=== PATIENT | female | born 1965 | race Caucasian/White ===

== ENCOUNTER 2021-02-23 08:57 | Outpatient (REF) | payer OTHER, SELFPAY ==
[2021-02-23 11:14] LABS: MANUAL DIFF FLAG NO
[2021-02-23 11:21] LABS: Basophils Percent Auto 0.5 % (0-2); Eosinophils Absolute Auto 0.4 X10*3/uL (0.0-0.4); Eosinophils Percent Auto 6.5 % (0-4); Hematocrit 40.3 % (37.0-47.0); Hemoglobin 13.2 g/dl (12.0-16.0); Imm Gran Abs Auto 0.02 X10*3/uL (0.00-0.03); Imm Gran Pct Auto 0.3 % (0.0-0.4); Lymphocytes Absolute Auto 1.6 X10*3/uL (1.2-4.9); Lymphocytes Percent Auto 27.5 % (20-40); Mean Corpuscular HGB Conc 32.8 g/dl (31.0-35.0); Mean Corpuscular Hemoglobin 31.9 pg (27.0-33.0); Mean Corpuscular Volume 97.3 fL (80.0-98.0); Mean Platelet Volume 9.3 fL (9.4-12.3); Monocytes Absolute Auto 0.4 X10*3/uL (0.1-1.2); Monocytes Percent Auto 7.4 % (2-11); Neutrophils Absolute Auto 3.4 x10*3/uL (2.0-8.3); Neutrophils Percent Auto 57.8 % (45-73); Platelet Count 256 X10*3/uL (160-400); Red Blood Count 4.14 X10*6/uL (4.20-5.50); Red Cell Distribution Width 12.4 % (11.0-16.0); White Blood Count 5.9 X10*3/uL (4.8-10.8)
[2021-02-23 11:44] LABS: Alanine Aminotransferase 20 U/L (0-31); Albumin Level 3.8 g/dL (3.5-5.0); Alkaline Phosphatase 123 U/L (39-117); Anion Gap 9 (12-20); Aspartate Amino Transferase 20 U/L (5-31); Bilirubin Total 0.4 mg/dL (0.0-1.0); Blood Urea Nitrogen 14 mg/dL (9-16); Calcium 8.7 mg/dL (8.4-10.2); Carbon Dioxide 27 mmol/L (22-29); Chloride 109 mmol/L (96-108); Cholesterol 214 mg/dL; Estimated Glomerular Filt Rate > 60; Glucose Fasting 100 mg/dL (60-99); HDL Cholesterol 67 mg/dL; LDL Cholesterol Calculated 135 mg/dl; Potassium 4.2 mmol/L (3.3-5.1); Sodium 141 mmol/L (135-145); Total Protein 6.4 g/dL (6.5-8.0); Triglycerides 63 mg/dL
[2021-02-23 11:54] LABS: TSH reflex Free T4 2.53 uIU/mL (0.32-4.0)
== END 2021-02-23 08:58 | disposition home or self-care (01) ==
LOC: HO.WFDLDS 08:57
PROVIDERS: Visit Provider Family Medicine
DX: Z00.00 Encounter for general adult medical examination without abnormal findings (principal)
CPT/HCPCS: 36415; 80053; 80061; 84443; 85025

== ENCOUNTER 2021-02-28 08:59 | Outpatient (REF) | payer OTHER, MEDICAID, SELFPAY ==
--- NOTE | ~2021-02-28 | XR_ITS ---
EXAMINATION: XR HAND, LEFT CLINICAL INFORMATION: Pain COMPARISON: None TECHNIQUE: PA, lateral, and oblique views of the left hand. FINDINGS: There is no acute fracture or dislocation. Very mild narrowing of the DIP and PIP joint spaces. No significant hypertrophic change or erosions. The joint spaces are otherwise preserved. Overlying soft tissues are intact. XR/XR hand LT min 3V IMPRESSION: No acute bony abnormality of the left hand. Mild early degenerative changes.
== END 2021-02-28 09:00 | disposition home or self-care (01) ==
LOC: HO.HOSX 08:59
PROVIDERS: Visit Provider Orthopaedic Surgery
DX: M72.0 Palmar fascial fibromatosis [Dupuytren] (principal)
CPT/HCPCS: 73130

== ENCOUNTER 2021-05-04 08:24 | Outpatient (REF) | payer OTHER, SELFPAY ==
--- NOTE | ~2021-05-04 | MM_ITS ---
EXAMINATION: MM SCREENING DIGITAL BREAST TOMOSYNTHESIS, BILATERAL CLINICAL INFORMATION: Screening. Asymptomatic. Prior history reduction mammoplasty. Prior the outside mammography from [facility] currently available.) The lifetime risk of breast cancer based on the Tyrer-Cuzick Model is 13%. COMPARISON: None. TECHNIQUE: Digital breast tomosynthesis is performed in both the craniocaudal and mediolateral oblique views along with computer-aided detection (CAD). Synthesized 2D images are generated from the tomosynthesis. Additional right MLO view is provided. FINDINGS: There are scattered areas of fibroglandular density (ACR BI-RADS breast composition Category b). Breast tissue composition borders on predominantly fatty. There are scattered background stromal scarring and benign fibroglandular densities. There is no significant mass or architectural abnormality. No abnormal calcifications. The axilla are unremarkable. MM/MM tomosynthesis screening BI IMPRESSION: No mammographic evidence of malignancy. ASSESSMENT: BI-RADS 2: Benign RECOMMENDATION: 1. Routine annual mammography screening. 2. Radiology department will attempt to retrieve prior outside mammography to allow for comparison in an addendum report. This patient's information was entered into a reminder system with a target due date for their next mammogram.
== END 2021-05-04 08:25 | disposition home or self-care (01) ==
LOC: HO.MAMMO 08:24
PROVIDERS: Visit Provider Family Medicine
DX: Z12.31 Encounter for screening mammogram for malignant neoplasm of breast (principal)
CPT/HCPCS: 77063; 77067

== ENCOUNTER 2021-10-24 08:01 | Outpatient (REF) | payer OTHER, MEDICAID, SELFPAY ==
[2021-10-24 11:25] LABS: MANUAL DIFF FLAG NO
[2021-10-24 11:34] LABS: Basophils Percent Auto 0.5 % (0-2); Eosinophils Absolute Auto 0.4 X10*3/uL (0.0-0.4); Eosinophils Percent Auto 6.8 % (0-4); Hematocrit 43.2 % (37.0-47.0); Hemoglobin 13.8 g/dl (12.0-16.0); Imm Gran Abs Auto 0.01 X10*3/uL (0.00-0.03); Imm Gran Pct Auto 0.2 % (0.0-0.4); Lymphocytes Absolute Auto 1.7 X10*3/uL (1.2-4.9); Lymphocytes Percent Auto 28.8 % (20-40); Mean Corpuscular HGB Conc 31.9 g/dl (31.0-35.0); Mean Corpuscular Volume 97.1 fL (80.0-98.0); Mean Platelet Volume 9.4 fL (9.4-12.3); Monocytes Absolute Auto 0.4 X10*3/uL (0.1-1.2); Monocytes Percent Auto 7.3 % (2-11); Neutrophils Absolute Auto 3.3 x10*3/uL (2.0-8.3); Neutrophils Percent Auto 56.4 % (45-73); Platelet Count 290 X10*3/uL (160-400); Red Blood Count 4.45 X10*6/uL (4.20-5.50); Red Cell Distribution Width 13.1 % (11.0-16.0); White Blood Count 5.8 X10*3/uL (4.8-10.8)
[2021-10-24 11:47] LABS: Alanine Aminotransferase 19 U/L (0-31); Albumin Level 4.1 g/dL (3.5-5.0); Alkaline Phosphatase 120 U/L (39-117); Aspartate Amino Transferase 19 U/L (5-31); Bilirubin Direct 0.2 mg/dL (0.0-0.5); Bilirubin Total 0.4 mg/dL (0.0-1.0); Total Protein 6.9 g/dL (6.5-8.0)
== END 2021-10-24 08:02 | disposition home or self-care (01) ==
LOC: HO.WFDLDS 08:01
PROVIDERS: Visit Provider Physician Assistant
DX: R10.11 Right upper quadrant pain (principal)
CPT/HCPCS: 36415; 80076; 85025

== ENCOUNTER 2021-10-31 07:00 | Outpatient (RCR) | payer OTHER, SELFPAY ==
--- NOTE | 2021-10-04 07:59 | MHC.PT.EP ---
[facility] [place] Office [place] Office [place] Office [address] Dunia Valera [address] [phone] F: [phone] F: [phone] F: [phone] F: [phone] Physical Therapy Plan of Care Date of Evaluation: Date of Surgery: NA Diagnosis: LOW BACK PAIN Assessment: Pt IS 56 YO F REFERRED TO PT FROM DR BELL WITH LBP. 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 REPORTS PUTTING SEAT BELT ON (ROT FROM L>R) SEEMED TO HAVE TRIGGER THE PAIN ON R LB. Pt HAS A SITTING JOB. PRESENTS WITH TIGHT LUMBAR MMS ON R, TIGHT LE MMS, POOR ABDOMINAL STRENGTH. SHOULD BENEFIT FROM PT TO HELP ADDRESS THESE ISSUES Frequency and Duration: The patient will be seen 2X/WK X 6 WKS Short Term Goals: 1. INCREASED AWARENESS BACK CARE AND POSTURE 2. Pt TO PERF 2-3 TASKS WITH PROPER BODY MECH Developmental Therapist Goals: 1. I HEP WITH DC EX PLAN 2. DECREASED R LBP AT LEAST 50% WITH ADLS Treatment Plan: Modalities to reduce pain, spasms and effusion. Manual therapy to restore motion and function. Therapeutic exercise to improve strength and flexibility. Neuromuscular re-education for posture and balance. Therapeutic activities to return to functional activities of daily living. Electronically signed by: GIANCARLO HANNA PT Please sign and return to therapist. Thank you for your referral.
--- NOTE | 2021-12-05 16:01 | MHC.PT.DC ---
[facility] [place] Office [place] Office [place] Office [address] Dunia Valera [address] [phone] F: [phone] F: [phone] F: [phone] F: [phone] Physical Therapy Discharge Report Diagnosis: LOW BACK PAIN Date of Surgery: NA Date of Evaluation: 10/04/21 Date of Discharge: 12/05/21 Treatments to Date: 3 Cancellations to Date: No Shows to Date: Discharge Status: Patient Elected to Stop Discharge Summary: Pt NOT SEEN SINCE 10/31/21. PER NOTE FROM THAT DATE BY NAYANA NOVOA PT,DPT 10/31/21 Reduction of pain expressed overall, pt eager to initiate walking program (in process of moving hectic schedule wishing to place therapy on hold at this time.)'. Pt WAS TO CALL RE RESCHEDULE. HAS NOT CALLED TO RESCHEDULE. WILL DC AT THIS TIME 10/24/21 Pt demonstrated a positive response to stretches and home program issued. see HEP sheets. Pt IS 56 YO F REFERRED TO PT FROM DR BELL WITH LBP. 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 REPORTS PUTTING SEAT BELT ON (ROT FROM L>R) SEEMED TO HAVE TRIGGER THE PAIN ON R LB. Pt HAS A SITTING JOB. PRESENTS WITH TIGHT LUMBAR MMS ON R, TIGHT LE MMS, POOR ABDOMINAL STRENGTH. SHOULD BENEFIT FROM PT TO HELP ADDRESS THESE ISSUES Electronically signed by: GIANCARLO HANNA PT Please sign and return to therapist. Thank you for your referral.
== END 2021-12-05 16:01 | disposition home or self-care (01) ==
LOC: HO.PTWFD 07:00
PROVIDERS: Visit Provider Family Medicine
DX: M54.50 Low back pain, unspecified (principal)
CPT/HCPCS: 97110; 97161; 97535

== ENCOUNTER 2022-01-23 12:48 | Outpatient (REF) | payer OTHER, SELFPAY ==
--- NOTE | ~2022-01-23 | US_ITS ---
EXAMINATION: US COMPLETE ABDOMEN WITH LIVER ELASTOGRAPHY CLINICAL INFORMATION: Obesity. Concern for fatty liver. COMPARISON: None. TECHNIQUE: Real-time imaging of the abdominal viscera. Noninvasive ultrasound liver fibrosis assessment is performed using Jadon ElastPQ point quantification shear wave elastography (2D-SWE) with a C5-2 MHz transducer. Multiple elastography samples are obtained. FINDINGS: PANCREAS: Not well visualized due to bowel gas ABDOMINAL AORTA: The middle and distal aortic segments are normal in caliber. The proximal abdominal aorta is not well visualized due to bowel gas. INFERIOR VENA CAVA: Visualized portions are normal. LIVER: Liver echotexture is slightly increased. The liver demonstrates normal size, and contour. No focal lesion or intrahepatic biliary duct dilatation. The right lobe measures 14 cm in length. The left lobe measures 10 cm in length. Portal flow is normal/hepatopedal Shear wave liver elastography median stiffness is 1.4 m/s (reference: normal median stiffness is 1.3 m/s or less). IQR/median stiffness to assess sampling precision is 0.13 (reference: good quality data set is IQR/median stiffness of 0.15 or less). GALLBLADDER: Surgically removed COMMON BILE DUCT: Normal in caliber measuring 0.8 cm in diameter. RIGHT KIDNEY: The right kidney is small and lobulated in shape. No hydronephrosis. No renal calculi or focal parenchymal lesions. The kidney measures 8.4 cm in maximum dimension. LEFT KIDNEY: Normal. No hydronephrosis. No renal calculi or focal parenchymal lesions. The kidney measures 11.7 cm in maximum dimension. SPLEEN: Normal. The spleen measures 9 cm in maximum dimension. FREE FLUID: None. US/US abdomen comp w elastography IMPRESSION: 1. Impression: Slightly echogenic liver. Small right kidney. Limited visualization of the pancreas and proximal abdominal aorta. Post cholecystectomy. 2. Liver elastography: Adequate liver sampling. In the absence of other known clinical signs, rules out compensated advanced chronic liver disease. REFERENCE: Society of Radiologists in Ultrasound Liver Stiffness Thresholds (2020): LIVER STIFFNESS THRESHOLDS: *Liver Stiffness equal or less than 1.3 m/s: High probability of being normal. *Liver Stiffness less than 1.7 m/s: In the absence of other known clinical signs, rules out compensated advanced chronic liver disease. *Liver Stiffness 1.7-2.1 m/s: Suggestive of compensated advanced chronic liver disease but need further test for confirmation. *Liver Stiffness over 2.1 m/s: Rules in compensated advanced chronic liver disease. *Liver Stiffness over 2.4 m/s: Suggestive of clinically significant portal hypertension. QUALITY OF DATA SET: *IQR/Median value equal or less than 0.15 implies a quality data set. *IQR/Median value over 0.15 implies a poor quality data set. SIGNIFICANT CHANGE FROM PRIOR EXAM: Significant change if liver stiffness measurement is 10% or greater from prior exam. OTHER CONSIDERATIONS: The stage of liver fibrosis may be overestimated in the setting of acute hepatitis, liver inflammation, elevated liver function tests, hepatic vascular congestion, obstructive cholestasis, non-fasting state, and infiltrative diseases such as amyloidosis and lymphoma. In some patients with NAFLD, the liver stiffness thresholds for compensated advanced chronic liver disease may be lower. In causes other than viral hepatitis and NAFLD, liver stiffness thresholds are not well established.
== END 2022-01-23 12:49 | disposition home or self-care (01) ==
LOC: HO.US 12:48
PROVIDERS: Visit Provider Physician Assistant
DX: R10.11 Right upper quadrant pain (principal)
CPT/HCPCS: 76705; 76981

== ENCOUNTER 2022-05-25 10:28 | Outpatient (REF) | payer OTHER, SELFPAY ==
--- NOTE | ~2022-05-25 | MM_ITS ---
EXAMINATION: MM SCREENING DIGITAL BREAST TOMOSYNTHESIS, BILATERAL CLINICAL INFORMATION: Screening. Asymptomatic. Prior history reduction mammoplasty. The lifetime risk of breast cancer based on the Tyrer-Cuzick Model is 12%. COMPARISON: Mammography: 05/04/2021 TECHNIQUE: Digital breast tomosynthesis is performed in both the craniocaudal and mediolateral oblique views along with computer-aided detection (CAD). Synthesized 2D images are generated from the tomosynthesis. Additional left CC view is provided. FINDINGS: There are scattered areas of fibroglandular density (ACR BI-RADS breast composition Category b). There are no significant masses, abnormal calcifications, or other abnormalities. Breast tissue composition borders on predominantly fatty. Background stromal markings are similar to previous exam. There are incidental small bilateral low axillary tail nodes. The skin contours are smooth. No significant changes. MM/MM tomosynthesis screening BI IMPRESSION: No mammographic evidence of malignancy. ASSESSMENT: BI-RADS 2: Benign RECOMMENDATION: Routine annual mammography screening. This patient's information was entered into a reminder system with a target due date for their next mammogram.
== END 2022-05-25 10:29 | disposition home or self-care (01) ==
LOC: HO.MAMMO 10:28
PROVIDERS: PCP Family Medicine; Visit Provider Family Medicine
DX: Z12.31 Encounter for screening mammogram for malignant neoplasm of breast (principal)
CPT/HCPCS: 77063; 77067

== ENCOUNTER 2022-10-31 07:30 | Outpatient (RCR) | payer OTHER, MEDICAID, SELFPAY ==
--- NOTE | 2022-10-02 13:53 | MHC.OT.EP ---
[address] [phone] Occupational Therapy Plan of Care Patient Name: Frances HANKINS Date of Evaluation: 10/02/22 Diagnosis: R FOREARM TENDINITIS WITH EPICONDYLITIS Pain Location: R LATERAL ELBOW 0/10 AT REST 4-6/10 WITH USE NUMBING, ACHY Pain Score: 0-6/10 Pain Scale Used: Numeric (0 - 10) Aggravating Factors: LIFTING, CARRYING 5-10 POUNDS Alleviating Factors: MELOXICAM 1 PILL/DAY, PURCHASED CFB WITH INCONSISTENT USE HAS NOT TRIED ICE Assessment: 57 Y/O F WITH OFF/ON SYMPTOMS OF R LATERAL EPICONDYLITIS OVER LAST TWO YEARS. HAS RECENTLY PURCHASED CFB WITH INCONSISTENT USE. STATES MOSTLY PAINFREE AT REST AND 4-6/10 WITH USE. MOST PAINFUL WITH HOUSEHOLD TASKS AND LIFTING >10 POUNDS. HAS RECENTLY SWITCHED FROM USING HAND HELD BRIEFCASE TO BACKPACK WHEN COMMUTING INTO [place] FOR WORK. A 55% LIMITATION IS REPORTED PER THE QUICK DASH ASSESSMENT. ONGOING SKILLED OT IS WARRANTED TO ADDRESS AREAS MENTIONED BELOW. Frequency and Duration: The patient will be seen 3X/WEEK FOR 4 WEEKS Short Term Goals: IND HEP IND CFB USE IND POSITIONING STRATEGIES, ACTIVITY MODIFICATIONS IND USE OF ICE Paint Prep Technician Goals: REPORT <3/10 PAIN WITH LIFTING >15 POUNDS FOR IADLs QUICK DASH <35% MAINTAIN PAINFREE AT REST Treatment Plan: Therapeutic Exercise Therapeutic Activity Home Exercise Program Splinting Neuro Re-ed Patient Education Desensitization/Sensory Re-ed Edema Control ADL Training Ultrasound NMES Iontophoresis Paraffin Fluidotherapy MHP Cold Packs Joint Mobilization Soft Tissue Mobilization Kinesiotaping Other (see comments) Electronically Signed By: OSORIO ESTEVES OTR/L Please Sign and return to therapist. Thank you once again for your referral.
--- NOTE | 2022-11-26 15:10 | MHC.OT.DC ---
[address] [phone] F: [phone] Occupational Therapy Discharge Note Patient Name: Frances Jean Baptiste Provider: Freddy Yousif Diagnosis: R FOREARM TENDINITIS WITH EPICONDYLITIS Date of Evaluation: 10/02/22 Date of Discharge: 11/26/22 Treatments to Date: 2 Cancellations to Date: 0 No Shows to Date: 0 Discharge Status: Improved Function Independent with HEP Patient Elected to Stop Discharge Summary: MS JEAN BAPTISTE HAD ATTENDED TWO APPOINTMENTS FOR OT SERVICES. SHE EXPRESSED DIFFICULTY ATTENDING DUE TO HER SCHEDULE. OVERALL SHE'S DOING WELL, STILL EXPERIENCING PAIN WITH LIFTING HEAVIER ITEMS. STATES SHE IS WEARING HER CFB WITH HOMECARE TASKS. Pt HAS ELECTED TO DISCONTINUE TREATMENT. WILL D/C OT SERVICES AT THIS TIME. Electronically Signed By: OSORIO ESTEVES OTR/Lyubov Reviewed/agree with student documentation: N/A Therapist: Please Sign and return to therapist, thank you for your referral.
== END 2022-11-26 15:10 | disposition home or self-care (01) ==
LOC: HO.OT 07:30
PROVIDERS: PCP Family Medicine; Visit Provider Family Medicine
DX: M77.10 Lateral epicondylitis, unspecified elbow (principal)
CPT/HCPCS: 97033; 97110; 97140; 97166

== ENCOUNTER 2023-02-01 15:22 | Outpatient (AMB) | payer OTHER, SELFPAY ==
--- NOTE | 2023-02-01 15:25 | A.OFFPC_ITS ---
Vital Signs 02/01/23 15:26 Height 5 ft 6 in Weight 215 lb 4 oz BMI 34.7 BP 122/74 Blood Pressure Location Lt brachial Position Sitting Respiration 13 Pulse 83 Pulse Source Pulse Oximeter Temp 97.6 F Temp Source Temporal Artery Scan Pulse Oximetry (%) 98 Oxygen Delivery Method Room Air Intake Visit Reasons: Sharp pain on left side of abdomen Intake Note: Patient states that she has a history of diverticulitis. Patient states that she was taking things for constipation and symptoms have been easing up. Carton Stenciler Required: No Accompanied by: Self / Same As Patient Allergies phenytoin [From Dilantin] Allergy (Severe, Verified 02/01/23 15:47) rash amoxicillin Allergy (Intermediate, Verified 02/01/23 15:47) rash Medication List - Last Reconciled 02/01/23 by Ousmane Garcias CNP calcipotriene 0.005% topical diclofenac sodium 1% 2 grams topical QID 30 days fluocinonide 0.05% mL topical BID PRN hydrocortisone 2.5% appl topical ketoconazole 2% 1 appl topical 2XW lisinopril 20 mg PO DAILY 90 days meloxicam 15 mg PO DAILY 30 days naproxen 500 mg PO BID 30 days prednisone 40 mg (2 x 20 mg) PO DAILY 4 days semaglutide 1.39 mg subcut QWEEK sertraline 100 mg PO DAILY 30 days Tobacco use date assessed: 05/31/22 Dental Screening Dental Screen Date: 02/01/23 Did you have a dental visit in the last 12 months?: Yes Did you have a dental problem in the last 6 months where you did not have access to dental care?: No Was dental information given to patient?: Patient has dentist HPI HPI Comments History of Present Illness Details 57-year-old female present with complain ts of intermittent, sharp pain to the left side of her abdomen for the past 1 week. She notes that she has been taking an otc fiber tablet with some improvement of her symptoms. Her symptoms have improved form 5 to 2 episodes daily in the past 2 days. She reports initial constipation that has subsided. She denies current abdominal symptoms. She denies n/v/d. She denies fever, chills, body aches, fatigue, or weakness. She notes history of diverticulosis. [facility] Medical History History of sleep apnea History of hiatal hernia Surgical History History of uvulectomy History of tonsillectomy History of cholecystectomy History of appendectomy History of bilateral breast reduction surgery Family History Mother No problems noted. Father Bladder cancer Brother Substance abuse Brother Substance abuse Sister Substance abuse Social History Housing: Condominium Alcohol intake: current Patient Tobacco Use Status: Former Tobacco user (in one month half pack) Cigarettes Per Day: 10 e-Cigarette/Vaping Use: Never Used Second Hand Smoke Exposure: No service: No Current occupational status: employed Current occupational exposures/hazards: No Cognitive needs: No Hearing needs: No Vision needs: Yes Questionnaire Thrive Questionnaire Date Thrive assessed: 05/31/22 JODIE-7 AMB Questionnaire JODIE-7 Date JODIE - 7 assessed: 05/31/22 Source: Developed by Drs. Bud Riley, Paulette Ruiz, Aric Ospina and colleagues, with an educational randall from [employer]. Review of Systems Const Details: Const Denies chills, Denies fatigue, Denies fever(s), Denies headache(s) and Denies weakness ENT Denies dizziness and Denies headache(s) Card Denies chest pain, Denies lightheadedness, Denies dyspnea and Denies other (P alpitations) Resp Denies cough, Denies dyspnea, Denies wheezing and Denies other ( shortness of breath) GI Denies abdominal pain, Denies melena, Denies hematochezia, Denies change in bowel habits, Denies dyspepsia and Denies nausea Denies hematuria and Denies dysuria Musc Denies abnormal gait, Denies myalgias, Denies arthralgias, Denies numbness and Denies tingling Skin/Breast Denies rash, Denies unusual bruising and Denies wounds Neuro Denies abnormal gait, Denies dizziness, Denies headache(s), Denies memory loss, Denies numbness, Denies Sensory deficit (Neuro), Denies tingling and Denies weakness Psych Denies anxiety, Denies depression, Denies memory loss Endo Denies cold intolerance, Denies fatigue, Denies heat intolerance, Denies polydipsia and Denies polyuria Aller/Immun Denies wheezing Physical exam (Primary Care) Vital Signs: Last Vital Signs Temp 97.6 F 02/01/23 15:26 Pulse 83 02/01/23 15:26 Resp 13 02/01/23 15:26 BP 122/74 02/01/23 15:26 Pulse Ox 98 02/01/23 15:26 Oxygen Delivery Method Room Air 02/01/23 15:26 BMI result Body Mass Index 34.7 Tobacco/Smoking Status: Tobacco use Status Tobacco use date assessed 05/31/22 02/01/23 15:42 Patient Tobacco Use Status Former Tobacco user (in one 02/01/23 15:42 month half pack) e-Cigarette/Vaping Use Never Used 02/01/23 15:42 Thrive Assessment: Date of Thrive Assessment Date Thrive assessed 05/31/22 02/01/23 15:42 Const Other: General: no acute distress and well developed Nutritional Appearance: well nourished Orientation/consciousness: patient oriented x3 HENMT Head: Yes normocephalic and Yes atraumatic Eyes General: appearance normal, both eyes and all related structures Pupils: Equal, round and reactive pupils present EOM: EOMs intact bilaterally Resp Effort & Inspection: normal respiratory effort Auscultation: clear to auscultation bilaterally Cardio Rate: regular rate Rhythm: regular rhythm Heart sounds: S1 normal heart sound present, S2 normal heart sound present, no gallops, no murmurs and no rubs GI Palpation (GI): No Abdominal aortic bruit present, Soft to palpation, nontender, No hepatosplenomegaly present and No Rebound tenderness present Auscultation: normal bowel sounds General: Yes no CVA tenderness Back/Spine/Pelvis Back: no CVA tenderness Cervical Spine: cervical ROM normal and No Cervical spine tenderness Thoracic/Lumbar Spine: thoraco-lumbar ROM normal, No pain with thoraco-lumbar ROM, No thoracic spinal tenderness and No lumbar spinal tenderness Extrem General: Yes normal to inspection, No edema and No calf tenderness Skin General: warm and dry. Normal skin color. Normal skin turgor Lesions: no lesions Rashes: no rashes Trauma: no lacerations or abrasions Wounds: no wounds Nails: normal Neuro General: patient oriented x3, gait normal and no focal neuro deficit Cranial nerves: Yes Equal, round and reactive pupils present Cognition (Neuro): normal cognition Gait exam (Neuro): Normal gait present Sensory Exam: No Sensory deficit (Neuro) Psych Appearance: grossly normal Affect: normal affect Attitude: cooperative Thought process: Normal thought process present Assessment and Plan Assessment & Plan (1) Abdominal pain: Code(s): R10.9 - Unspecified abdominal pain Plan: Patient present with complaints of 5 days of intermittent left-sided abdomen pain which is responding well to an [id number] fiber supplement Abdomen is soft, nontender, nondistended, active bowel sounds x4 Symptoms may be attributed to constipation Advised to continue to add fiber in her diet Healthy adequate hydration and diet, including fruits and vegetables encouraged Return with worsening or new symptoms Verbalized understanding and agreed with treatment plan. Coding Level of Care Code Est Pt Level 3 (87565) Diagnoses Abdominal pain R10.9
[2023-02-01 15:26] VITALS: BP 122/74; PULSE 83; RESP 13; TEMP 36.4; O2SAT 98; BMI 34.7
== END 2023-02-01 15:59 | disposition home or self-care (01) ==
PROVIDERS: PCP Family Medicine; Visit Provider Nurse Practitioner Family
DX: R10.32 Left lower quadrant pain (principal)
CPT/HCPCS: 99213

== ENCOUNTER 2023-06-28 07:13 | Outpatient (REF) | payer OTHER, SELFPAY ==
--- NOTE | ~2023-06-28 | MM_ITS ---
EXAMINATION: MM SCREENING DIGITAL BREAST TOMOSYNTHESIS, BILATERAL CLINICAL INFORMATION: Screening. Asymptomatic. COMPARISON: Mammography: This study is compared with prior exams dating back to 2021. TECHNIQUE: Digital breast tomosynthesis is performed in both the craniocaudal and mediolateral oblique views along with computer-aided detection (CAD). Synthesized 2D images are generated from the tomosynthesis. FINDINGS: The breasts are almost entirely fatty (ACR BI-RADS breast composition Category a). There are no significant masses, abnormal calcifications, or other abnormalities. MM/MM tomosynthesis screening BI IMPRESSION: No mammographic evidence of malignancy. ASSESSMENT: BI-RADS BI-RADS 1 - Negative RECOMMENDATION: Routine annual mammography screening. 1 year F/U This examination should not preclude the clinical evaluation of a suspicious palpable abnormality. This patient's information was entered into a reminder system with a target due date for their next mammogram.
== END 2023-06-28 07:14 | disposition home or self-care (01) ==
LOC: HO.MAMMO 07:13
PROVIDERS: Referring Provider Obstetrics & Gynecology; Visit Provider Family Medicine
DX: Z12.31 Encounter for screening mammogram for malignant neoplasm of breast (principal)
CPT/HCPCS: 77063; 77067

== ENCOUNTER → 2023-06-28 07:30 | Outpatient (BNV) | payer OTHER, SELFPAY | PROVIDERS: Referring Provider Obstetrics & Gynecology; Visit Provider Radiology Diagnostic Radiology | DX: Z12.31 Encounter for screening mammogram for malignant neoplasm of breast (principal) | CPT/HCPCS: 77063; 77067 ==

== ENCOUNTER 2023-07-15 07:31 | Outpatient (AMB) | payer OTHER, SELFPAY ==
[2023-07-15 07:36] VITALS: BP 110/70; PULSE 84; O2SAT 98
--- NOTE | 2023-07-15 07:36 | A.OFFPC_ITS ---
Vital Signs 07/15/23 07:36 Weight 200 lb BP 110/70 Blood Pressure Location Rt brachial Position Sitting Pulse 84 Pulse Source Pulse Oximeter Pulse Oximetry (%) 98 Oxygen Delivery Method Room Air Intake Visit Reasons: Transfer of care from [facility]-Mild high BP Allergies phenytoin [From Dilantin] Allergy (Severe, Verified 07/15/23 07:36) rash amoxicillin Allergy (Intermediate, Verified 07/15/23 07:36) rash Medication List - Last Reconciled 07/15/23 by Amelie Carr MD calcipotriene 0.005% topical diclofenac sodium 1% 2 grams topical QID 30 days fluocinonide 0.05% mL topical BID PRN hydrocortisone 2.5% appl topical ketoconazole 2% 1 appl topical 2XW lisinopril 20 mg PO DAILY 90 days meloxicam 15 mg PO DAILY 30 days naproxen 500 mg PO BID 30 days semaglutide 1.39 mg (0.5213 mL) subcut QWEEK sertraline 100 mg PO DAILY 90 days Tobacco use date assessed: 07/15/23 Dental Screening Dental Screen Date: 07/15/23 Did you have a dental visit in the last 12 months?: Yes Did you have a dental problem in the last 6 months where you did not have access to dental care?: No Was dental information given to patient?: Patient has dentist HPI Transfer of care from [facility]-Mild high BP HPI Details 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 PMH are HTN and anxiety controlled on meds. pt h as been on Semaglutide inj since last Jan for weight loss and was able to lose about 20 lb. PFSH Medical History History of sleep apnea History of hiatal hernia Surgical History History of uvulectomy History of tonsillectomy History of cholecystectomy History of appendectomy History of bilateral breast reduction surgery Family History (Updated 07/15/23 @ 08:19 by Amelie Carr MD) Mother Substance abuse Father Bladder cancer Brother Substance abuse Brother Substance abuse Sister Substance abuse Social History Housing: Condominium Alcohol intake: current Patient Tobacco Use Status: Former Tobacco user (in one month half pack) Cigarettes Per Day: 10 e-Cigarette/Vaping Use: Never Used Second Hand Smoke Exposure: No service: No Current occupational status: employed Current occupational exposures/hazards: No Cognitive needs: No Hearing needs: No Vision needs: Yes Questionnaire PHQ-9 Over the last 2 weeks, how often have you been bothered by any of the following problems? 1. Little interest or pleasure in doing things: not at all 2. Feeling down, depressed, or hopeless: not at all 3. Trouble falling or staying asleep, or sleeping too much: not at all 4. Feeling tired or having little energy: several days 5. Poor appetite or overeating: not at all 6. Feeling bad about yourself - or that you are a failure or have let yourself or your family down: not at all 7. Trouble concentrating on things, such as reading the newspaper or watching television: not at all 8. Moving or speaking so slowly that other people could have noticed. Or the opposite - being so fidgety or restless that you have been moving around a lot more than usual: not at all 9. Thoughts that you would be better off or of hurting yourself in some way: not at all Total score: 1 Depression Screening Interpretation: Negative Depression Screening Done: Yes Source: Developed by Drs. Bud Riley, Paulette Ruiz, Aric Ospina and colleagues, with an educational randall from [employer]. Thrive Questionnaire Date Thrive assessed: 07/15/23 I am a: Patient What is your living situation today?: I have a steady place to live Within the past 12 months, did the food you bought not last and you didn't have the money to get more?: Never true Within the past 12 months, did you worry whether your food would run out before you got money to buy more?: Never true Do you have trouble paying for medicines?: No Do you have trouble getting transportation to medical appointments?: No Do you have trouble paying your heating and electricity bill?: No Do you have trouble taking care of your child, family member or friend?: No Do you have trouble with day-to-day activities such as bathing, preparing meals, shopping, managing finances, etc.?: No Are you currently unemployed and looking for a job?: No Are you interested in more education?: No Please select the resources that you would like help with: None Currently or been in a relationship where the following occur: no concerns reported THRIVE Score: 0 AUDIT C Alcohol Use Questionnaire (AUDIT-C) 1. How often do you have a drink containing alcohol?: 4 or more times a week 2. How many drinks containing alcohol do you have on a typical day when you are drinking?: 1 or 2 3. How often do you have six or more drinks on one occasion?: Never Total Score: 4 Score Reviewed/Action Taken: No JODIE-7 AMB Questionnaire JODIE-7 Date JODIE - 7 assessed: 07/15/23 Feeling nervous, anxious, or on edge: 0 = Not at all Not being able to stop or control worryin = Not at all Worrying too much about different things: 0 = Not at all Trouble relaxin = Not at all Feeling afraid as if something awful might happen: 0 = Not at all Source: Developed by Drs. Bud Riley, Paulette Ruiz, Aric Ospina and colleagues, with an educational randall from [employer]. JODIE-7 Assessment Billing JODIE-7 Assessment Tool: JODIE-7 Assessment 25542 Review of Systems Const All systems reviewed & are unremarkable except as noted in HPI and below Reports no additional complaints Eyes Reports no additional complaints ENT Reports no additional complaints Card Reports no additional complaints Resp Reports no additional complaints GI Reports no additional complaints Reports no additional complaints Skin/Breast Reports system reviewed and no additional complaints, except as documented Physical exam (Primary Care) Vital Signs: Last Vital Signs Pulse 84 07/15/23 07:36 BP 110/70 07/15/23 07:36 Pulse Ox 98 07/15/23 07:36 Oxygen Delivery Method Room Air 07/15/23 07:36 Tobacco/Smoking Status: Tobacco use Status Tobacco use date assessed 07/15/23 07/15/23 07:40 Patient Tobacco Use Status Former Tobacco user (in one 07/15/23 07:40 month half pack) e-Cigarette/Vaping Use Never Used 07/15/23 07:40 PHQ-9: PHQ-9 Score PHQ-9: Total score 1 07/15/23 12:14 Depression Screening Interpretation: Negative Thrive Assessment: Date of Thrive Assessment Date Thrive assessed 07/15/23 07/15/23 08:38 Currently or been in a relationship where the following occur: no concerns reported Const General: no acute distress HENMT Head: Yes normal to inspection Ears: hearing grossly normal bilaterally Face and sinus: Yes normal facial exam Mouth: Normal oral and palatal mucosa present Eyes General: appearance normal, both eyes and all related structures Neck Neck: Yes no lymphadenopathy and Yes supple Resp Effort & Inspection: normal respiratory effort Auscultation: clear to auscultation bilaterally Cardio Rhythm: regular rhythm Heart sounds: S1 normal heart sound present and S2 normal heart sound present GI Inspection: Yes normal to inspection Palpation (GI): Soft to palpation Percussion: Yes normal to percussion Auscultation: normal bowel sounds Assessment and Plan Assessment & Plan (1) Essential hypertension: Code(s): I10 - Essential (primary) hypertension Plan: Continue lisinopril (2) Annual physical exam: Code(s): Z00.00 - Encounter for general adult medical examination without abnormal findings Plan: Well-balanced diet regular physical activity discussed with the patient she will have a fasting blood work today. Patient will be referred to GI for colonoscopy and she is up-to-date with a mammogram (3) BMI 34.0-34.9,adult: Code(s): Z68.34 - Body mass index [BMI] 34.0-34.9, adult Plan: INCREASE PHYSICAL ACTIVITY DECREASE CALORIC INTAKE DISCUSSED WITH THE PATIENT she will continue semaglutide at 1.39 mg weekly and will follow-up in 3 months Orders: Orders Comprehensive [place]. Panel Fast Today I10 - Essential (primary) hypertension, Z00.00 - Encounter for general adult medical examination without abnormal findings Complete Blood Count Auto Diff Today I10 - Essential (primary) hypertension, Z00.00 - Encounter for general adult medical examination without abnormal findings Lipid Panel Today I10 - Essential (primary) hypertension, Z00.00 - Encounter for general adult medical examination without abnormal findings Vitamin D 25-OH Total Today I10 - Essential (primary) hypertension, Z00.00 - Encounter for general adult medical examination without abnormal findings Hemoglobin A1c Today Z00.00 - Encounter for general adult medical examination without abnormal findings TSH reflex Free T4 Today I10 - Essential (primary) hypertension, Z00.00 - Encounter for general adult medical examination without abnormal findings Referrals Gastroenterology Referral Z00.00 - Encounter for general adult medical examination without abnormal findings Medications: New semaglutide 1.39 mg (0.5213 mL) subcut QWEEK 9 mL 0RF Refilled lisinopril 20 mg PO DAILY 90 tabs 3RF 90 days Coding Level of Care Code New Pt Prev Care 40-64y(24342) Diagnoses Essential hypertension I10 Annual physical exam Z00.00 BMI 34.0-34.9,adult Z68.34 Additional Codes JODIE-7 Assessment Billing - JODIE-7 Assessment Tool: JODIE-7 Assessment 90651 ([id number])
== END 2023-07-15 15:41 | disposition home or self-care (01) ==
PROVIDERS: PCP Family Medicine; Visit Provider Internal Medicine
DX: I10 Essential (primary) hypertension (principal); Z00.00 Encounter for general adult medical examination without abnormal findings; Z68.34 Body mass index [BMI] 34.0-34.9, adult
CPT/HCPCS: 99386

== ENCOUNTER 2023-07-29 08:55 | Outpatient (REF) | payer OTHER, SELFPAY ==
[2023-07-29 10:26] LABS: MANUAL DIFF FLAG NO
[2023-07-29 10:32] LABS: Basophils Percent Auto 0.7 % (0-2); Eosinophils Absolute Auto 0.4 X10*3/uL (0.0-0.4); Eosinophils Percent Auto 6.8 % (0-4); Hematocrit 46.9 % (37.0-47.0); Hemoglobin 15.3 g/dl (12.0-16.0); Imm Gran Abs Auto 0.01 X10*3/uL (0.00-0.03); Imm Gran Pct Auto 0.2 % (0.0-0.4); Lymphocytes Absolute Auto 1.5 X10*3/uL (1.2-4.9); Lymphocytes Percent Auto 25.5 % (20-40); Mean Corpuscular HGB Conc 32.6 g/dl (31.0-35.0); Mean Corpuscular Hemoglobin 31.4 pg (27.0-33.0); Mean Corpuscular Volume 96.3 fL (80.0-98.0); Mean Platelet Volume 8.9 fL (9.4-12.3); Monocytes Absolute Auto 0.4 X10*3/uL (0.1-1.2); Monocytes Percent Auto 6.3 % (2-11); Neutrophils Absolute Auto 3.6 x10*3/uL (2.0-8.3); Neutrophils Percent Auto 60.5 % (45-73); Platelet Count 290 X10*3/uL (160-400); Red Blood Count 4.87 X10*6/uL (4.20-5.50); White Blood Count 5.9 X10*3/uL (4.8-10.8)
[2023-07-29 10:43] LABS: Estimated Average Glucose 105 mg/dL; Hemoglobin A1c % 5.3 % (<6.0)
[2023-07-29 10:49] LABS: Alanine Aminotransferase 19 U/L (0-31); Albumin Level 4.1 g/dL (3.5-5.0); Alkaline Phosphatase 130 U/L (39-117); Anion Gap 14 (12-20); Aspartate Amino Transferase 25 U/L (5-31); Bilirubin Total 0.4 mg/dL (0.0-1.0); Blood Urea Nitrogen 12 mg/dL (9-16); Calcium 9.4 mg/dL (8.4-10.2); Carbon Dioxide 24 mmol/L (22-29); Chloride 108 mmol/L (96-108); Cholesterol 246 mg/dL (<200); Estimated Glomerular Filt Rate > 60; Glucose Fasting 98 mg/dL (60-99); HDL Cholesterol 69 mg/dL (>40); LDL Cholesterol Calculated 154 mg/dL (<100); Potassium 3.8 mmol/L (3.3-5.1); Sodium 142 mmol/L (135-145); Total Protein 7.6 g/dL (6.5-8.0); Triglycerides 118 mg/dL (<150)
[2023-07-29 11:06] LABS: Vitamin D 25-OH Total 17.8 ng/mL (>30)
== END 2023-07-29 08:56 | disposition home or self-care (01) ==
LOC: HO.HMGCLDS 08:55
PROVIDERS: PCP Internal Medicine; Visit Provider Internal Medicine
DX: Z00.00 Encounter for general adult medical examination without abnormal findings (principal); I10 Essential (primary) hypertension
CPT/HCPCS: 36415; 80053; 80061; 82306; 83036; 84443; 85025

== ENCOUNTER 2023-09-04 12:15 | Outpatient (AMB) | payer OTHER, SELFPAY ==
[2023-09-04 12:17] VITALS: BP 112/74; PULSE 99; O2SAT 96; BMI 32.3
--- NOTE | 2023-09-04 12:17 | A.OFFPC_ITS ---
Vital Signs 09/04/23 12:17 Height 5 ft 6 in Weight 200 lb BMI 32.3 BP 112/74 Blood Pressure Location Lt brachial Position Sitting Pulse 99 Pulse Source Pulse Oximeter Pulse Oximetry (%) 96 Oxygen Delivery Method Room Air Intake Visit Reasons: Follow up for being admitted for optic nerve swell Intake Note: Pt is here today for Hospital follow up. Allergies phenytoin [From Dilantin] Allergy (Severe, Verified 09/04/23 12:24) rash amoxicillin Allergy (Intermediate, Verified 09/04/23 12:24) rash Medication List - Last Reconciled 09/04/23 by Amelie Carr MD aspirin 81 mg PO DAILY atorvastatin 80 mg PO DAILY calcipotriene 0.005% topical diclofenac sodium 1% 2 grams topical QID 30 days fluocinonide 0.05% mL topical BID PRN hydrocortisone 2.5% appl topical ketoconazole 2% 1 appl topical 2XW PRN lisinopril 20 mg PO DAILY 90 days meloxicam 15 mg PO DAILY PRN naproxen 500 mg PO BID 30 days sertraline 100 mg PO DAILY 90 days Wegovy (semaglutide (weight loss)) 2.4 mg (0.75 mL) subcut QWEEK NS Tobacco use date assessed: 09/04/23 Dental Screening Dental Screen Date: 07/15/23 HPI Follow up for being admitted for optic nerve swell HPI Details Pt presents for f/u HTN and hyperlipid, stable on meds. Pt f/u with neurology and ophthalmology at [facility] for optic nerve CVA. She would extensive workup so far negative. Patient has been wearing a 30 day heart monitor and will have an echocardiogram at [facility] for the workup of CVA. She will obtain copies of her tests from [facility] Medical History History of sleep apnea History of hiatal hernia Surgical History History of uvulectomy History of tonsillectomy History of cholecystectomy History of appendectomy History of bilateral breast reduction surgery Family History (Updated 07/15/23 @ 08:19 by Amelie Carr MD) Mother Substance abuse Father Bladder cancer Brother Substance abuse Brother Substance abuse Sister Substance abuse Social History Housing: [facility] Alcohol intake: current Patient Tobacco Use Status: Former Tobacco user (in one month half pack) Cigarettes Per Day: 10 e-Cigarette/Vaping Use: Never Used Second Hand Smoke Exposure: No service: No Current occupational status: employed Current occupational exposures/hazards: No Cognitive needs: No Hearing needs: No Vision needs: Yes Questionnaire Thrive Questionnaire Date Thrive assessed: 07/15/23 JODIE-7 AMB Questionnaire JODIE-7 Date JODIE - 7 assessed: 07/15/23 Source: Developed by Drs. Bud Riley, Paulette Ruiz, Aric Ospina and colleagues, with an educational randall from [employer]. Review of Systems Const All systems reviewed & are unremarkable except as noted in HPI and below ENT Reports no additional complaints Card Reports no additional complaints Resp Reports no additional complaints GI Reports no additional complaints Reports no additional complaints Physical exam (Primary Care) Vital Signs: Last Vital Signs Pulse 99 09/04/23 12:17 BP 112/74 09/04/23 12:17 Pulse Ox 96 09/04/23 12:17 Oxygen Delivery Method Room Air 09/04/23 12:17 BMI result Body Mass Index 32.3 Tobacco/Smoking Status: Tobacco use Status Tobacco use date assessed 09/04/23 09/04/23 12:26 Patient Tobacco Use Status Former Tobacco user (in one 09/04/23 12:17 month half pack) e-Cigarette/Vaping Use Never Used 09/04/23 12:17 Thrive Assessment: Date of Thrive Assessment Date Thrive assessed 07/15/23 09/04/23 12:17 Const General: no acute distress HENMT Head: Yes normal to inspection Face and sinus: Yes normal facial exam Eyes General: appearance normal, both eyes and all related structures Neck Neck: Yes supple Resp Effort & Inspection: normal respiratory effort Auscultation: clear to auscultation bilaterally Cardio Rhythm: regular rhythm Heart sounds: S1 normal heart sound present and S2 normal heart sound present GI Inspection: Yes normal to inspection Palpation (GI): Soft to palpation Percussion: Yes normal to percussion Auscultation: normal bowel sounds Assessment and Plan Assessment & Plan (1) Retinal artery occlusion: Code(s): H34.9 - Unspecified retinal vascular occlusion Plan: Patient will complete CVA workup at [facility] and will follow-up with Neurology and Ophthalmology (2) BMI 34.0-34.9,adult: Code(s): Z68.34 - Body mass index [BMI] 34.0-34.9, adult Plan: Weight loss discussed with the patient continue Wegovy (3) Essential hypertension: Code(s): I10 - Essential (primary) hypertension Plan: Continue Lisinopril (4) Hyperlipidemia: Code(s): E78.5 - Hyperlipidemia, unspecified Plan: Continue high dose of statin. Patient will have a fasting blood work done at [facility] in 1 month Medications: Changed From meloxicam 15 mg PO DAILY 30 days 30 tabs 2RF To meloxicam 15 mg PO DAILY PRN Coding Level of Care Code Est Pt Level 4 (90314) Diagnoses Retinal artery occlusion H34.9 BMI 34.0-34.9,adult Z68.34 Essential hypertension I10 Hyperlipidemia E78.5
== END 2023-09-04 13:09 | disposition home or self-care (01) ==
PROVIDERS: PCP Internal Medicine; Visit Provider Internal Medicine
DX: H34.9 Unspecified retinal vascular occlusion (principal); Z68.34 Body mass index [BMI] 34.0-34.9, adult; I10 Essential (primary) hypertension; E78.5 Hyperlipidemia, unspecified
CPT/HCPCS: 99214

== ENCOUNTER 2023-09-20 07:56 | Outpatient (AMB) | payer OTHER, SELFPAY ==
--- NOTE | 2023-09-20 08:06 | A.OFFPC_ITS ---
Vital Signs 09/20/23 08:07 Height 5 ft 6 in Weight 196 lb BMI 31.6 BP 94/62 Blood Pressure Location Rt brachial Position Sitting Pulse 94 Pulse Source Pulse Oximeter Pulse Oximetry (%) 95 Oxygen Delivery Method Room Air Intake Visit Reasons: Follow up visit. Intake Note: Pt is here today for a follow up visit. Allergies phenytoin [From Dilantin] Allergy (Severe, Verified 09/04/23 12:24) rash amoxicillin Allergy (Intermediate, Verified 09/04/23 12:24) rash Medication List - Last Reconciled 09/20/23 by Amelie Carr MD aspirin 81 mg PO DAILY Bacillus coagulans-inulin 1 billion-250 cell-mg caps PO ergocalciferol (vitamin D2) 1,250 mcg PO QWEEK fluocinonide 0.05% mL topical BID PRN hydrocortisone 2.5% appl topical ketoconazole 2% 1 appl topical 2XW PRN lisinopril 20 mg PO DAILY 90 days lorazepam 0.5 mg PO BID PRN omeprazole 20 mg PO DAILY prednisone 10 mg PO DIRECTED sertraline 100 mg PO DAILY 90 days Tobacco use date assessed: 09/04/23 Dental Screening Dental Screen Date: 07/15/23 HPI Follow up visit. HPI Details Pt presents for the follow-up admission to [facility] for vision loss in the right eye and hypotension. She was diagnosed with giant cell arteritis based on elevated sedimentation rate. Patient had temporary artery biopsy which was negative. She was started on prednisone and has a PET scan scheduled at [facility]. Patient blood pressure has been running low and she still takes 20 mg of lisinopril. Lipitor was discontinued because of elevated LFTs while in the hospital. [facility] Medical History (Updated 09/20/23 @ 08:55 by Amelie Carr MD) History of sleep apnea History of hiatal hernia Surgical History History of uvulectomy History of tonsillectomy History of cholecystectomy History of appendectomy History of bilateral breast reduction surgery Family History (Updated 07/15/23 @ 08:19 by Amelie Carr MD) Mother Substance abuse Father Bladder cancer Brother Substance abuse Brother Substance abuse Sister Substance abuse Social History Housing: Condominium Alcohol intake: current Patient Tobacco Use Status: Former Tobacco user (in one month half pack) Cigarettes Per Day: 10 e-Cigarette/Vaping Use: Never Used Second Hand Smoke Exposure: No service: No Current occupational status: employed Current occupational exposures/hazards: No Cognitive needs: No Hearing needs: No Vision needs: Yes Questionnaire Thrive Questionnaire Date Thrive assessed: 07/15/23 JODIE-7 AMB Questionnaire JODIE-7 Date JODIE - 7 assessed: 07/15/23 Source: Developed by Drs. Bud Riley, Paulette Ruiz, Aric Ospina and colleagues, with an educational randall from [employer]. Review of Systems Const All systems reviewed & are unremarkable except as noted in HPI and below Eyes Reports no additional complaints ENT Reports no additional complaints Card Reports no additional complaints Resp Reports no additional complaints GI Reports no additional complaints Reports no additional complaints Physical exam (Primary Care) Vital Signs: Last Vital Signs Pulse 94 09/20/23 08:07 BP 94/62 09/20/23 08:07 Pulse Ox 95 09/20/23 08:07 Oxygen Delivery Method Room Air 09/20/23 08:07 BMI result Body Mass Index 31.6 Tobacco/Smoking Status: Tobacco use Status Tobacco use date assessed 09/04/23 09/20/23 08:06 Patient Tobacco Use Status Former Tobacco user (in one 09/20/23 08:06 month half pack) e-Cigarette/Vaping Use Never Used 09/20/23 08:06 Thrive Assessment: Date of Thrive Assessment Date Thrive assessed 07/15/23 09/20/23 08:06 Const General: no acute distress HENMT Mouth: Normal oral and palatal mucosa present Eyes General: appearance normal, both eyes and all related structures Neck Neck: Yes supple Resp Effort & Inspection: normal respiratory effort Auscultation: clear to auscultation bilaterally Cardio Rhythm: regular rhythm Heart sounds: S1 normal heart sound present and S2 normal heart sound present GI Inspection: Yes normal to inspection Palpation (GI): Soft to palpation Percussion: Yes normal to percussion Auscultation: normal bowel sounds Assessment and Plan Assessment & Plan (1) Giant cell arteritis: Comment: dxd at [facility] , elevated ESR but negative TA bx, started on Prednisone 09/05, R eye vision loss Code(s): M31.6 - Other giant cell arteritis Plan: Continue prednisone and follow-up with neuro reading efficiency course director at [facility] for PET (2) Essential hypertension: Code(s): I10 - Essential (primary) hypertension Plan: Blood pressure is low and lisinopril will be decreased to 10 mg a day. Patient will follow-up in 1 month (3) Hyperlipidemia: Comment: Lipitor was stopped because of elevated LFTs at [facility] 08/2023 Code(s): E78.5 - Hyperlipidemia, unspecified Medications: Discontinued Wegovy (semaglutide (weight loss)) Discontinued Reason: Doctor's Order 2.4 mg (0.75 mL) subcut QWEEK 9 mL 1RF NS Coding Level of Care Code Est Pt Level 4 (35396) Diagnoses Giant cell arteritis M31.6 Essential hypertension I10 Hyperlipidemia E78.5
[2023-09-20 08:07] VITALS: BP 94/62; PULSE 94; O2SAT 95; BMI 31.6
== END 2023-09-20 08:55 | disposition home or self-care (01) ==
PROVIDERS: PCP Internal Medicine; Visit Provider Internal Medicine
DX: M31.6 Other giant cell arteritis (principal); I10 Essential (primary) hypertension; E78.5 Hyperlipidemia, unspecified
CPT/HCPCS: 99214

== ENCOUNTER 2023-10-23 14:21 | Outpatient (AMB) | payer OTHER, SELFPAY ==
[2023-10-23 14:29] VITALS: BP 104/66; PULSE 103; O2SAT 95; BMI 33.6
--- NOTE | 2023-10-23 14:29 | A.OFFPC_ITS ---
Vital Signs 10/23/23 14:29 Height 5 ft 6 in Weight 208 lb BMI 33.6 BP 104/66 Blood Pressure Location Lt brachial Position Sitting Pulse 103 H Pulse Source Pulse Oximeter Pulse Oximetry (%) 95 Oxygen Delivery Method Room Air Intake Visit Reasons: 1 month follow up Intake Note: Pt is here today for 1 month follow up visit. Allergies phenytoin [From Dilantin] Allergy (Severe, Verified 10/23/23 14:30) rash amoxicillin Allergy (Intermediate, Verified 10/23/23 14:30) rash Tobacco use date assessed: 10/23/23 Dental Screening Dental Screen Date: 07/15/23 HPI 1 month follow up HPI Details Pt presents for f/u HTN. She has been taking 10 mg of lisinopril and denies lightheadedness or dizziness. Patient has been on rapid taper of prednisone prescribed by neuro amusement park ride mechanic at [facility]. PET scan was consistent with moderate subcutaneous and cutaneous increased uptake in right temporal region consistent with postprocedural reaction and less than 1 cm left upper lobe pulmonary nodule and repeat CT of the chest was recommended. Patient has not been taking statin because of liver function elevation. She will have a repeat blood work tomorrow to monitor liver function. [facility] Medical History (Updated 10/23/23 @ 15:20 by Amelie Carr MD) History of sleep apnea History of hiatal hernia Surgical History History of uvulectomy History of tonsillectomy History of cholecystectomy History of appendectomy History of bilateral breast reduction surgery Family History Mother Substance abuse Father Bladder cancer Brother Substance abuse Brother Substance abuse Sister Substance abuse Social History Housing: Condominium Alcohol intake: current Patient Tobacco Use Status: Former Tobacco user (in one month half pack) Cigarettes Per Day: 10 e-Cigarette/Vaping Use: Never Used Second Hand Smoke Exposure: No service: No Current occupational status: employed Current occupational exposures/hazards: No Cognitive needs: No Hearing needs: No Vision needs: Yes Questionnaire Thrive Questionnaire Date Thrive assessed: 07/15/23 JODIE-7 AMB Questionnaire JODIE-7 Date JODIE - 7 assessed: 07/15/23 Source: Developed by Drs. Bud Riley, Paulette Ruiz, Aric Ospina and colleagues, with an educational randall from [employer]. Review of Systems Const All systems reviewed & are unremarkable except as noted in HPI and below Reports no additional complaints Eyes Reports no additional complaints ENT Reports no additional complaints Card Reports no additional complaints Resp Reports no additional complaints GI Reports no additional complaints Reports no additional complaints Physical exam (Primary Care) Vital Signs: Last Vital Signs Pulse 103 H 10/23/23 14:29 BP 104/66 10/23/23 14:29 Pulse Ox 95 10/23/23 14:29 Oxygen Delivery Method Room Air 10/23/23 14:29 BMI result Body Mass Index 33.6 Tobacco/Smoking Status: Tobacco use Status Tobacco use date assessed 10/23/23 10/23/23 14:33 Patient Tobacco Use Status Former Tobacco user (in one 10/23/23 14:33 month half pack) e-Cigarette/Vaping Use Never Used 10/23/23 14:33 Thrive Assessment: Date of Thrive Assessment Date Thrive assessed 07/15/23 10/23/23 14:33 Const General: no acute distress HENMT Mouth: Normal oral and palatal mucosa present Eyes General: appearance normal, both eyes and all related structures Resp Effort & Inspection: normal respiratory effort Auscultation: clear to auscultation bilaterally Cardio Rhythm: regular rhythm Heart sounds: S1 normal heart sound present and S2 normal heart sound present GI Inspection: Yes normal to inspection Palpation (GI): Soft to palpation Percussion: Yes normal to percussion Assessment and Plan Assessment & Plan (1) Lung nodule: Comment: PRO on PET 10/06, Chest CT in 3 months Code(s): R91.1 - Solitary pulmonary nodule (2) Giant cell arteritis: Comment: dxd at [facility] , elevated ESR but negative TA bx, negative temporary artery u ltrasound and PET scan, started on Prednisone 09/05, R eye vision loss, Code(s): M31.6 - Other giant cell arteritis (3) Hyperlipidemia: Comment: Lipitor was stopped because of elevated LFTs at [facility] 08/2023 Code(s): E78.5 - Hyperlipidemia, unspecified Plan: Check lipid profile off statin (4) Essential hypertension: Code(s): I10 - Essential (primary) hypertension Plan: Decrease lisinopril to 5 mg follow-up in [address] of the chest (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 Braden [facility] Code(s): G37.89 - Other specified demyelinating diseases of central nervous system Coding Level of Care Code Est Pt Level 4 (16943) Diagnoses Lung nodule R91.1 Giant cell arteritis M31.6 Hyperlipidemia E78.5 Essential hypertension I10 Ischemic demyelination of optic nerve G37.89
== END 2023-10-23 15:16 | disposition home or self-care (01) ==
PROVIDERS: PCP Internal Medicine; Visit Provider Internal Medicine
DX: R91.1 Solitary pulmonary nodule (principal); M31.6 Other giant cell arteritis; E78.5 Hyperlipidemia, unspecified; I10 Essential (primary) hypertension; G37.89 Other specified demyelinating diseases of central nervous system
CPT/HCPCS: 99214

== ENCOUNTER 2023-10-25 06:47 | Outpatient (REF) | payer OTHER, SELFPAY ==
[2023-10-25 10:21] LABS: MANUAL DIFF FLAG NO
[2023-10-25 10:37] LABS: Basophils Percent Auto 0.3 % (0-2); Eosinophils Percent Auto 0.4 % (0-4); Hemoglobin 14.1 g/dl (12.0-16.0); Imm Gran Abs Auto 0.05 X10*3/uL (0.00-0.03); Imm Gran Pct Auto 0.6 % (0.0-0.4); Lymphocytes Absolute Auto 2.4 X10*3/uL (1.2-4.9); Lymphocytes Percent Auto 27.3 % (20-40); Mean Corpuscular Hemoglobin 31.3 pg (27.0-33.0); Mean Corpuscular Volume 97.6 fL (80.0-98.0); Mean Platelet Volume 8.5 fL (9.4-12.3); Monocytes Absolute Auto 0.7 X10*3/uL (0.1-1.2); Neutrophils Absolute Auto 5.7 x10*3/uL (2.0-8.3); Neutrophils Percent Auto 63.4 % (45-73); Platelet Count 302 X10*3/uL (160-400); Red Blood Count 4.51 X10*6/uL (4.20-5.50); Red Cell Distribution Width 14.7 % (11.0-16.0)
[2023-10-25 10:52] LABS: Alanine Aminotransferase 34 U/L (0-31); Albumin Level 3.9 g/dL (3.5-5.0); Alkaline Phosphatase 111 U/L (39-117); Anion Gap 13 (12-20); Aspartate Amino Transferase 18 U/L (5-31); Bilirubin Total 0.5 mg/dL (0.0-1.0); Blood Urea Nitrogen 19 mg/dL (9-16); C Reactive Protein 0.65 mg/dL (< or = 0.50); Calcium 9.5 mg/dL (8.4-10.2); Carbon Dioxide 27 mmol/L (22-29); Chloride 105 mmol/L (96-108); Estimated Glomerular Filt Rate > 60; Glucose Random 85 mg/dL (60-115); Potassium 4.3 mmol/L (3.3-5.1); Sodium 141 mmol/L (135-145); Total Protein 6.5 g/dL (6.5-8.0)
[2023-10-25 10:58] LABS: Vitamin D 25-OH Total 26.4 ng/mL (>30)
[2023-10-25 11:08] LABS: Erythrocyte Sedimentation Rate 9 MM/HR (0-20)
== END 2023-10-25 06:48 | disposition home or self-care (01) ==
LOC: HO.HMGCLDS 06:47
PROVIDERS: PCP Internal Medicine; Visit Provider Student in an Organized Health Care Education/Training Program
DX: M89.9 Disorder of bone, unspecified (principal); M31.6 Other giant cell arteritis
CPT/HCPCS: 36415; 80053; 82306; 85025; 85652; 86140

== ENCOUNTER 2023-11-07 10:35 | Outpatient (AMB) | payer OTHER, SELFPAY ==
--- NOTE | 2023-11-07 10:50 | MHC.OFFWIV ---
Intake Vital Signs 11/07/23 10:51 Height 5 ft 6 in Weight 217 lb BMI 35.0 BP 112/60 Blood Pressure Location Rt brachial Position Sitting Pulse 84 Pulse Source Pulse Oximeter Temp 98.6 F Temp Source Oral Pulse Oximetry (%) 96 Oxygen Delivery Method Room Air Intake Visit Reasons: left thumb cut not healing Intake Note: pt here c/o cut on LT thumb not healing. Happened 10/26 Patient Tobacco Use Status: Former Tobacco user (in one month half pack) Allergies phenytoin [From Dilantin] Allergy (Severe, Verified 11/07/23 10:50) rash amoxicillin Allergy (Intermediate, Verified 11/07/23 10:50) rash Do you need a note to return to daycare/school/sports/work: No HPI HPI Comments History of Present Illness Details Patient is a 58-year-old female complaining of a nonhealing caught on her left thumb which happened 11 days ago. She has since had a manicure with gel Ethiopian applied. She states she has been trying to use hydrogen peroxide on it as well as a triple antibiotic cream but it does not seem to be healing. She is able to have full range of motion with her finger and she states it is not very painful but she is more concerned because it is not healing. [facility] Medical History History of sleep apnea History of hiatal hernia Surgical History History of uvulectomy History of tonsillectomy History of cholecystectomy History of appendectomy History of bilateral breast reduction surgery Family History Mother Substance abuse Father Bladder cancer Brother Substance abuse Brother Substance abuse Sister Substance abuse Social History Housing: Condominium Alcohol intake: current Patient Tobacco Use Status: Former Tobacco user (in one month half pack) Cigarettes Per Day: 10 e-Cigarette/Vaping Use: Never Used Second Hand Smoke Exposure: No service: No Current occupational status: employed Current occupational exposures/hazards: No Cognitive needs: No Hearing needs: No Vision needs: Yes Review of Systems Const All systems reviewed & are unremarkable except as noted in HPI and below Physical Exam Vital Signs: Last Vital Signs Temp 98.6 F 11/07/23 10:51 Pulse 84 11/07/23 10:51 BP 112/60 11/07/23 10:51 Pulse Ox 96 11/07/23 10:51 Oxygen Delivery Method Room Air 11/07/23 10:51 BMI result Body Mass Index 35.0 Const General: cooperative, healthy appearing, comfortable, no acute distress and well developed Orientation/consciousness: patient oriented x3 Limitations: no limitations HEENT Head: Yes normal to inspection Eyes General: appearance normal, both eyes and all related structures Neck Neck: Yes normal visual inspection and Yes full ROM Resp Effort & Inspection: normal respiratory effort and able to speak in complete sentences Skin General skin exam: no rashes or lesions noted Neuro General: patient oriented x3 Extrem Other: Left thumb has 0.3 cm area of crusted on the lateral side of the nail, no signs of infection, no fluctuance, no drainage, full range of motion, NVI Assessment & Plan Assessment & Plan (1) Paronychia of thumb, left: Code(s): L03.012 - Cellulitis of left finger Plan: Recommended using a drop of iodine/Betadine with water and soaking her finger and it twice a day as well as using a topical triple antibiotic or Aquaphor. Educated patient on not using hydrogen peroxide on the wound. Also recommended she have the Ethiopian removed until the area is healed. Plan see above Coding Level of Care Code Est Pt Level 3 (41721) Diagnoses Paronychia of thumb, left L03.012
[2023-11-07 10:51] VITALS: BP 112/60; PULSE 84; TEMP 37; O2SAT 96; BMI 35.0
== END 2023-11-07 11:20 | disposition home or self-care (01) ==
PROVIDERS: PCP Internal Medicine; Visit Provider Physician Assistant
DX: L03.012 Cellulitis of left finger (principal)
CPT/HCPCS: 99213

== ENCOUNTER 2023-11-18 08:34 | Outpatient (REF) | payer OTHER, SELFPAY ==
--- NOTE | ~2023-11-18 | XR_ITS ---
EXAMINATION: XR CHEST CLINICAL INFORMATION: Asymptomatic menopausal state COMPARISON: Ultrasound abdomen 01/23/2022 TECHNIQUE: 2 views of the chest were obtained. FINDINGS: No significant abnormality is noted involving the heart, lungs, mediastinum, bony thorax or soft tissues. Some minimal scarring is present in the left costophrenic angle. Surgical clips are present in the gallbladder fossa. XR/XR chest 2V IMPRESSION: Unremarkable examination.
== END 2023-11-18 08:35 | disposition home or self-care (01) ==
LOC: HO.HMGCX 08:34
PROVIDERS: PCP Internal Medicine; Visit Provider Internal Medicine
DX: Z78.0 Asymptomatic menopausal state (principal)
CPT/HCPCS: 71046

== ENCOUNTER 2023-12-04 08:30 | Outpatient (REF) | payer OTHER, SELFPAY ==
--- NOTE | ~2023-12-04 | MM_ITS ---
EXAMINATION: BONE DENSITOMETRY CLINICAL INDICATION: Asymptomatic menopausal state. COMPARISON: This is the patient's baseline examination. TECHNIQUE: Using a [employer] DXA System (software version: 13.1) manufactured by [employer], dual-energy x-ray absorptiometry was performed of the lumbar spine and left hip. The images are of good technical quality. Summary results are attached. FINDINGS: LEFT FEMUR, NECK: BMD 0.817 g/cm2, Z-score -1.0, T-score -1.6, osteopenia. LEFT FEMUR, TOTAL: BMD 0.949 g/cm2, Z-score -0.3, T-score -0.5, normal. AP SPINE L1-L4: BMD 1.117 g/cm2, Z-score -0.4, T-score -0.5, normal. IDENTIFIED RISK FACTORS: Recurrent falls, menopause, anticonvulsant, glucocorticoids. HISTORY OF FRACTURE: None listed. MEDICATIONS: Calcium supplements or multivitamin, vitamin D. MM/XR DEXA axial skeleton IMPRESSION: 1. DIAGNOSIS: Osteopenia based on the lowest T-score value of -1.6 in the femoral neck applying World Health Organization criteria. 2. 10-YEAR FRACTURE RISK PREDICTION, FRAX: Major osteoporotic fracture (clinical spine, forearm, hip or shoulder) 12.5%. Hip fracture 1.3%. 3. Treatment Recommendations: NOF guidelines recommend consideration for treatment in postmenopausal women and men age 50 and older presenting with the following: -A hip or vertebral (clinical or morphometric) fracture. -T-score less than or equal to -2.5 at the femoral neck or spine after appropriate evaluation to exclude secondary causes. -Low bone mass at the hip or spine and a 10-year fracture probability by FRAX of greater than or equal to 3% for hip fracture or greater than or equal to 20% for major osteoporotic fracture based on the [place] adapted WHO algorithm. 4. Other Recommendations: All treatment decisions require clinical judgment and consideration of individual patient factors, including patient preferences, comorbidities, previous drug use, risk factors not captured in the FRAX model (e.g. frailty, falls, vitamin D deficiency, increased bone turnover, interval significant decline in bone density) and possible under or overestimation of fracture risk by FRAX. Additional medical evaluation for secondary cause of low bone mineral density may be appropriate. FUTURE SCAN RECOMMENDATION: People with diagnosed cases of osteoporosis or at high risk for fracture should have regular bone mineral density tests. For patients eligible for Medicare, routine testing is allowed once every 2 years. The testing frequency can be increased to one year for patients who have rapidly progressing disease, those who are receiving or discontinuing medical therapy to restore bone mass, or have additional risk factors. Electronically signed by: Carlos Estrada MD 12/11/2023 08:57 AM EDT RP
== END 2023-12-04 08:31 | disposition home or self-care (01) ==
LOC: HO.MAMMO 08:30
PROVIDERS: PCP Internal Medicine; Visit Provider Internal Medicine
DX: Z13.820 Encounter for screening for osteoporosis (principal); Z78.0 Asymptomatic menopausal state
CPT/HCPCS: 77080

== ENCOUNTER 2024-01-17 15:15 | Outpatient (REF) | payer OTHER, SELFPAY ==
[2024-01-17 18:10] LABS: Anion Gap 11 (12-20); Blood Urea Nitrogen 25 mg/dL (9-16); Carbon Dioxide 27 mmol/L (22-29); Chloride 104 mmol/L (96-108); Estimated Glomerular Filt Rate 52; Glucose Random 98 mg/dL (60-115); Potassium 4.4 mmol/L (3.3-5.1); Sodium 138 mmol/L (135-145); Vitamin D 25-OH Total 38.3 ng/mL (>30)
== END 2024-01-17 15:16 | disposition home or self-care (01) ==
LOC: HO.HMGCLDS 15:15
PROVIDERS: PCP Internal Medicine; Visit Provider Internal Medicine Rheumatology
DX: E55.9 Vitamin D deficiency, unspecified (principal)
CPT/HCPCS: 36415; 80048; 82306

== ENCOUNTER 2024-01-31 14:28 | Outpatient (REF) | payer OTHER, SELFPAY ==
[2024-01-31 17:02] LABS: Anion Gap 12 (12-20); Blood Urea Nitrogen 23 mg/dL (9-16); Calcium 9.3 mg/dL (8.4-10.2); Carbon Dioxide 27 mmol/L (22-29); Chloride 106 mmol/L (96-108); Estimated Glomerular Filt Rate > 60; Glucose Random 102 mg/dL (60-115); Potassium 3.6 mmol/L (3.3-5.1); Sodium 141 mmol/L (135-145)
[2024-01-31 17:06] LABS: Vitamin D 25-OH Total 28.4 ng/mL (>30)
== END 2024-01-31 14:29 | disposition home or self-care (01) ==
LOC: HO.HMGCLDS 14:28
PROVIDERS: PCP Internal Medicine; Visit Provider Internal Medicine Rheumatology
DX: E55.9 Vitamin D deficiency, unspecified (principal)
CPT/HCPCS: 36415; 80048; 82306

== ENCOUNTER 2024-02-06 13:21 | Outpatient (REF) | payer OTHER, SELFPAY ==
--- NOTE | ~2024-02-06 | CT_ITS ---
EXAMINATION: CT CHEST WITH CONTRAST CLINICAL INFORMATION: Giant cell arteritis. COMPARISON: None available. TECHNIQUE: Multidetector volumetric CT imaging of the chest was obtained after the administration of 65 mL of Omnipaque 350 intravenous contrast without immediate adverse reactions. Axial MIP volume rendering provided. Sagittal and coronal reformatted images were obtained. This CT examination was performed using dose optimization techniques as appropriate, variously including the following: *Automated exposure control *Adjustment of mA and/or kV according to patient size (this includes techniques or standardized protocols for targeted exams where dose is matched to indication/reason for exam; i.e. extremities or head) *Use of iterative reconstruction technique DLP: 144 mGy-cm FINDINGS: Submitted for interpretation on March 20, 2024. There is a 3 mm noncalcified pulmonary nodule, peripheral left lower lung lobe abutting the pleura. No consolidation, pleural effusion or pneumothorax. No bronchiectasis. No honeycombing. Respiratory airways patent. No lymphadenopathy, mediastinum. No aneurysm or dissection, thoracic aorta. Calcified plaques in the thoracic aortic arch and the coronary arteries. No pericardial effusion. Postsurgical changes for a possible fundoplication versus esophageal diverticulum in the distal esophagus. Calcifications and severe the superior and peripheral margin of the spleen. Probable cholecystectomy procedure. Multilevel thoracic spondylosis without acute fracture or listhesis. The thyroid gland is not enlarged. There is no axillary lymphadenopathy. CT/CT chest w IV con IMPRESSION: No acute airspace disease. Nonspecific 3 mm pleural-based noncalcified pulmonary nodule, left lower lung lobe. Fleischner guidelines were followed. Electronically signed by: Gary Muhammad MD 03/20/2024 01:17 PM [facility]
[2024-02-06] MEDS: iohexoL 350 MG/ML 100 ML INFUS..BTL 65 ML IV (13:48)
== END 2024-02-06 13:22 | disposition home or self-care (01) ==
LOC: HO.CT 13:21
PROVIDERS: PCP Internal Medicine; Visit Provider Student in an Organized Health Care Education/Training Program
DX: M31.6 Other giant cell arteritis (principal)
CPT/HCPCS: 71260; Q9967

== ENCOUNTER → 2024-02-06 13:39 | Outpatient (BNV) | payer OTHER, SELFPAY | PROVIDERS: PCP Internal Medicine; Visit Provider Radiology Diagnostic Radiology | DX: M31.6 Other giant cell arteritis (principal) | CPT/HCPCS: 71260 ==

== ENCOUNTER → 2024-02-27 07:58 | Outpatient (REF) | payer OTHER, SELFPAY ==
--- NOTE | 2024-02-27 08:04 | CA_ITS ---
Transthoracic Echocardiogram Patient (Last, First, Middle): Frances Walton M Gender: Female Date of : 1965 Age: 58 Procedure Date: 02/27/2024 Procedure Type: Transthoracic Echocardiogram Location: OP Height: 165.1 cm Weight: 97.52 kg BSA: 2.04 m2 Heart Rate: 76 bpm BP: 120 / 80 mmHg Assembler Piano: [id number] Referring MD: Kelley Maloney MD Child Care Education Coordinator: Chaz Puri MD Symptoms: M31.6 GIANT CELL ARTERITIS, HX TIA Study Quality: Adequate ECG Rhythm: Sinus Conclusions: - 1. Presence of PFO noted by saline contrast study 2. Normal LV ejection fraction 55-60% 3. Limited visualization of cardiac valves with normal cardiac valvular Dopplers 4. Normal measured RV systolic pressure 5. Mildly dilated ascending aorta at 3.7 cm Findings Procedure Information Contrast agent, definity, is being given per protocol without apparent complications. Left Ventricle Normal left ventricular size, thickness, and systolic function. The visually estimated ejection fraction is between 55-60%. Spectral Doppler is indicative of a normal filling pattern. Right Ventricle The right ventricle was not well visualized. There is normal right ventricular systolic function. Atria The left atrium is likely dilated. Contrast study for right to left shunting is negative. Contrast study for right to left shunting is severely positive with Valsalva maneuver. Patent foramen ovale detected using by contrast. There is shunt reversal with the release phase of the Valsalva maneuver. The right atrium is normal in size. Aortic Valve The aortic valve was not well visualized. There is no aortic valve stenosis. There is no aortic valve regurgitation. Mitral Valve The mitral valve was not well visualized. There is no mitral valve regurgitation. There is no mitral valve stenosis. Pulmonic Valve The pulmonic valve was not well visualized. Tricuspid Valve The tricuspid valve was not well visualized. There is trace tricuspid valve regurgitation. The right ventricular systolic pressure is normal. Normal right atrial pressure. Great Vessels The aorta was not well visualized. The pulmonary artery was not well visualized. There is mild dilatation of the ascending aorta measuring 3.70 cm. Venous The inferior vena cava is normal in size and collapses greater than 50% with inspiration. Pericardium/Pleural The pericardium was not well visualized. Prior Study Comparison No prior study available for comparison. Recommendations, Care & Conclusions Consider a YEMI if clinically appropriate. Measurements 2D Linear Measurements IVSd: 0.80 0.6-0.9/0.6-1.0 cm LVIDd: 5.00 3.9-5.3/4.2-5.9 cm LVIDd Index: 2.45 2.4-3.2/2.2-3.1 cm/m2 LVIDs: 2.78 2.0-3.6 cm LVPWd: 0.77 0.7-1.1 cm LA Diam: 3.30 2.7-3.8/3.0-4.0 cm LAIDs Index: 1.62 1.5-2.3 cm/m2 LV Mass: 165.34 67-162/88-224 g LV Mass Index: 81.05 43-95/49-115 g/m2 LVOT Diam: 2.10 3.0+(-)1.3 cm Mitral Valve MV Pk E: 0.58 MV PK A: 0.58 MV Decel Time: 216.00 E/A: 1.00 E'Lateral: 6.20 E'Medial: 5.33 E/E' Med: 10.80 E/E' Lat: 9.30 PHT: 63.00 MVA PHT: 3.49 Decel Rosebud: 2.67 Aortic Valve AoV Pk Srini: 1.08 AoV Mn Srini: 0.75 AoV VTI: 0.20 AoV Pk Grad: 5.00 Aov Mn Grad: 3.00 NGOZI Cont.VTI: 2.70 LVOT LVOT Pk Srini: 0.80 LVOT Mn Srini: 0.52 LVOT VTI: 0.15 LVOT Pk Grad: 3.00 LVOT Mn Grad: 1.00 LVOT Diam: 2.10 LVOT Area: 3.46 Diastolic Function MV Pk E: 0.58 MV Pk A: 0.58 E/A: 1.00 E'Medial: 5.33 E/E' Med: 10.80 E' Laterial: 6.20 E/E' Lat: 9.30 Right Ventricle TAPSE (mm): 20.40 TVS' Srini: 10.90 Tricuspid Valve TR Pk Srini: 1.64 TR Pk Grad: 11.00 RA Press: 3.00 RVSP: 14.00 Great Vessels Aorta Sinus of Valsalva: 3.96 2.0-3.[address] Ridge: 3.16 1.7-3.4 cm Ao Asc: 3.70 2.1-3.4 cm Ao Arch: 3.30 Updated in Other Vendor System with Status of Final Chaz Puri MD electronically signed on 02/27/2024 1:10:15 PM with status of Final
== END ==
LOC: HO.CARD 07:58
PROVIDERS: PCP Internal Medicine; Visit Provider Student in an Organized Health Care Education/Training Program
DX: M31.6 Other giant cell arteritis (principal)
CPT/HCPCS: 93306; Q9957

== ENCOUNTER → 2024-02-27 08:04 | Outpatient (BNV) | payer OTHER, SELFPAY | PROVIDERS: PCP Internal Medicine; Visit Provider Internal Medicine Cardiovascular Disease | DX: Q21.12 Patent foramen ovale (principal) | CPT/HCPCS: 93303; 93320; 93325 ==

== ENCOUNTER 2024-03-23 10:01 | Outpatient (AMB) | payer OTHER, SELFPAY ==
[2024-03-23 10:11] VITALS: BP 106/62; PULSE 84; BMI 35.5
--- NOTE | 2024-03-23 10:11 | A.OFFVIS_ITS ---
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 911 Telecommunicator Required: No Accompanied by: Self / Same As Patient Allergies phenytoin [From Dilantin] Allergy (Severe, Verified 11/07/23 10:50) rash amoxicillin Allergy (Intermediate, Verified 11/07/23 10:50) rash Medication List - Last Reconciled 03/23/24 by Chaz Puri MD aspirin 81 mg PO DAILY Bacillus coagulans-inulin 1 billion-250 cell-mg caps PO ergocalciferol (vitamin D2) 1,250 mcg PO QWEEK fluocinonide 0.05% mL topical BID PRN hydrocortisone 2.5% appl topical ketoconazole 2% 1 appl topical 2XW PRN lisinopril 20 mg PO DAILY 90 days lorazepam 0.5 mg PO BID PRN omeprazole 20 mg PO DAILY prednisone 10 mg PO DIRECTED sertraline 100 mg PO DAILY 90 days Zepbound (tirzepatide (weight loss)) 2.5 mg (0.5 mL) subcut QWEEK NS HPI Comments Details: Thank you for referring Frances in cardiology consultation today for recent echocardiogram showing PFO by saline contrast study. 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 Since been treated she has not had any other events. She has been seen by neurologist in [place]. Subsequent workup has not been conclusive for giant cell arteritis except for on day of diagnose his ESR was elevated in the mid 30s. Her subsequent ESR on prednisone is within normal limits. She had an echocardiogram that was done which showed PFO and was referred here for further evaluation. She has not had any other neurologic events. He is currently on aspirin therapy. [facility] Medical History History of sleep apnea History of hiatal hernia Surgical History History of uvulectomy History of tonsillectomy History of cholecystectomy History of appendectomy History of bilateral breast reduction surgery Family History Mother Substance abuse Father Bladder cancer Brother Substance abuse Brother Substance abuse Sister Substance abuse Social History Housing: Condominium Alcohol intake: current Patient Tobacco Use Status: Former Tobacco user Cigarettes Per Day: 10 e-Cigarette/Vaping Use: Never Used Second Hand Smoke Exposure: No service: No Current occupational status: employed Current occupational exposures/hazards: No Cognitive needs: No Hearing needs: No Vision needs: Yes Review of Systems Const Denies chills, Denies daytime sleepiness, Denies fatigue, Denies fever(s), Denies poor appetite, Denies snoring, Denies stops breathing during sleep, Denies weakness, Denies weight gain and Denies weight loss Eyes Denies loss of vision ENT Denies dizziness and Denies hearing loss Card Denies chest pain, Denies irregular heart rhythm, Denies claudication, Denies leg edema, Denies lightheadedness, Denies palpitations, Reports dyspnea on exert ion and Denies orthopnea Resp Denies cough, Denies excessive phlegm production, Reports dyspnea on exertion, Denies snoring and Denies wheezing GI Denies abdominal pain, Denies hematochezia, Denies change in bowel habits, Denies nausea and Denies vomiting Denies urinary frequency and Denies dysuria Musc Denies arthralgias, Denies muscle weakness, Denies numbness and Denies other Skin/Breast Denies nail changes and Denies rash Neuro Denies Abnormal speech present, Denies dizziness, Denies loss of vision, Denies memory loss, Denies numbness and Denies weakness Psych Denies depression and Denies memory loss Endo Denies fatigue and Denies palpitations Fuad/Lymph Denies easy bruising Aller/Immun Denies wheezing Physical Exam Vital Signs: Last Vital Signs Pulse 84 03/23/24 10:11 BP 106/62 03/23/24 10:11 BMI result Body Mass Index 35.5 Const General: cooperative, comfortable, no acute distress, alert, awake and Physically active Nutritional Appearance: obese Orientation/consciousness: patient oriented x3 Limitations: no limitations HEENT Head: Yes normocephalic and Yes atraumatic Neck Neck: Yes trachea midline, Yes supple and Yes no JVD Resp Effort & Inspection: normal respiratory effort Auscultation: clear to auscultation bilaterally Cardio Jugular venous distension: no JVD Palpation: normal PMI Rate: regular rate Rhythm: regular rhythm Heart sounds: S1 normal heart sound present, S2 normal heart sound present, no click, no gallops and no murmurs GI Auscultation: normal bowel sounds Skin General skin exam: no rashes or lesions noted Neuro General: patient oriented x3 and no focal motor deficits Speech: No Abnormal speech present Extrem General: Yes no clubbing, cyanosis or edema Psych Appearance: grossly normal Affect: Anxious affect present Office Procedures EKG Details: EKG shows normal sinus rhythm with normal EKG [id number], Complete Assessment & Plan Assessment & Plan (1) PFO (patent foramen ovale): Code(s): Q21.12 - Patent foramen ovale Category: Medical Plan: PFO noted in the 58-year-old female who had an acute retinal artery occlusion with headache. 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 She has a follow-up appointment with neurologist in [place] today. Her RoPE score is 4, giving her a likelihood of paradoxical embolism at 38% due to PFO with a 12% recurrent risk in 2 years. I discussed with her the pathophysiology of PFO and potential association with paradoxical embolism and potential therapy with a closure device. Although if her event his related to giant cell vasculitis, PFO closure would not help her condition. I have advised her to follow-up with her neurologist and also obtain imaging done on her brain to see if there any other lesions that would suggest paradoxical embolism. That would possibly change her management. For now I would continue with aspirin. Continue with aggressive blood pressure control. Consider statin therapy with target goal LDL less than 70 mg/dL. Continue participate in weight loss program. Will follow up in the clinic if need be. Thank you for allowing me to partake in her care Coding Level of Care Code New Pt Level 4 (34417) Complex EM visit Add On G2211 Diagnoses PFO (patent foramen ovale) Q21.12 CPT Codes EKG - CPT: 81871-[id number], Complete ([id number])
== END 2024-03-23 10:47 | disposition home or self-care (01) ==
PROVIDERS: PCP Internal Medicine; Visit Provider Internal Medicine Cardiovascular Disease
DX: Q21.12 Patent foramen ovale (principal); Z79.52 Long term (current) use of systemic steroids
CPT/HCPCS: 93010; 99214

== ENCOUNTER → 2024-03-23 10:01 | Outpatient (BNVA) | payer OTHER, SELFPAY | PROVIDERS: PCP Internal Medicine; Visit Provider Internal Medicine Cardiovascular Disease | DX: Q21.12 Patent foramen ovale (principal); Z79.82 Long term (current) use of aspirin | CPT/HCPCS: 93005 ==

== ENCOUNTER 2024-03-27 10:15 | Outpatient (REF) | payer OTHER, SELFPAY ==
[2024-03-27 13:11] LABS: MANUAL DIFF FLAG NO
[2024-03-27 13:33] LABS: Basophils Percent Auto 0.3 % (0-2); Eosinophils Absolute Auto 0.2 X10*3/uL (0.0-0.4); Eosinophils Percent Auto 1.9 % (0-4); Hematocrit 47.3 % (37.0-47.0); Hemoglobin 15.3 g/dl (12.0-16.0); Imm Gran Abs Auto 0.03 X10*3/uL (0.00-0.03); Imm Gran Pct Auto 0.3 % (0.0-0.4); Lymphocytes Absolute Auto 3.7 X10*3/uL (1.2-4.9); Lymphocytes Percent Auto 42.1 % (20-40); Mean Corpuscular HGB Conc 32.3 g/dl (31.0-35.0); Mean Corpuscular Hemoglobin 29.4 pg (27.0-33.0); Mean Platelet Volume 9.1 fL (9.4-12.3); Monocytes Absolute Auto 0.8 X10*3/uL (0.1-1.2); Monocytes Percent Auto 8.8 % (2-11); Neutrophils Absolute Auto 4.1 x10*3/uL (2.0-8.3); Neutrophils Percent Auto 46.6 % (45-73); Platelet Count 327 X10*3/uL (160-400); Red Cell Distribution Width 14.6 % (11.0-16.0); White Blood Count 8.7 X10*3/uL (4.8-10.8)
[2024-03-27 14:03] LABS: Erythrocyte Sedimentation Rate 10 MM/HR (0-20)
[2024-03-27 14:04] LABS: Alanine Aminotransferase 24 U/L (0-31); Albumin Level 4.1 g/dL (3.5-5.0); Alkaline Phosphatase 125 U/L (39-117); Anion Gap 14 (12-20); Aspartate Amino Transferase 26 U/L (5-31); Bilirubin Total 0.5 mg/dL (0.0-1.0); Blood Urea Nitrogen 19 mg/dL (9-16); C Reactive Protein 0.92 mg/dL (< or = 0.50); Calcium 9.6 mg/dL (8.4-10.2); Carbon Dioxide 24 mmol/L (22-29); Chloride 106 mmol/L (96-108); Estimated Glomerular Filt Rate > 60; Glucose Random 97 mg/dL (60-115); Sodium 140 mmol/L (135-145); Total Protein 7.4 g/dL (6.5-8.0)
== END 2024-03-27 10:16 | disposition home or self-care (01) ==
LOC: HO.HMGCLDS 10:15
PROVIDERS: PCP Internal Medicine; Visit Provider Student in an Organized Health Care Education/Training Program
DX: M31.6 Other giant cell arteritis (principal)
CPT/HCPCS: 36415; 80053; 85025; 85652; 86140

== ENCOUNTER 2024-03-30 11:39 | Outpatient (AMB) | payer OTHER, SELFPAY ==
[2024-03-30 12:04] VITALS: BP 108/68; PULSE 100; TEMP 36.2; O2SAT 95; BMI 35.5
--- NOTE | 2024-03-30 12:04 | MHC.OFFWIV ---
Intake Vital Signs 03/30/24 12:04 Height 5 ft 6 in Weight 220 lb BMI 35.5 BP 108/68 Blood Pressure Location Lt brachial Position Sitting Pulse 100 Pulse Source Pulse Oximeter Temp 97.2 F Temp Source Temporal Artery Scan Pulse Oximetry (%) 95 Oxygen Delivery Method Room Air Intake Visit Reasons: EP Stye on RT eye Intake Note: Pt presents to the office today for c/o right stye in her eye since yesterday. Pt denies any discharge from her eye. Patient Tobacco Use Status: Former Tobacco user Allergies phenytoin [From Dilantin] Allergy (Severe, Verified 03/30/24 12:06) rash amoxicillin Allergy (Intermediate, Verified 03/30/24 12:06) rash HPI HPI Comments History of Present Illness Details History of Present Illness The patient is a 58-year-old female presenting with a stye on the right eyelid. She reports that the issue started recently, with symptoms including irritation and the sensation of something in the eye. She describes the discomfort as feeling as if she had been punched. The stye typically resolves with manual intervention and warm compresses, but this time it has not improved as anticipated. There is associated yellowish discoloration on the inside of the eyelid, suggesting an infectious process. She denies any acute changes in vision related to the current complaint. Her past medical history includes Giant Cell Arteritis and Age-related Macular Degeneration affecting the right eye, which has contributed to prior visual changes but are not currently causing new issues. The patient had been utilizing lid wipes for hygiene without significant relief. Pt denies wearing contacts. Physical Exam General: Cooperative, healthy appearing, comfortable, no acute distress and well developed Orientation: Patient oriented x3 Limitations: No limitations Head: Normal to inspection Ears: Hearing grossly normal bilaterally Nose: Normal External nose present Face and sinus: Normal facial exam Eyes: Appearance abnormal, right eyelid appears infected with a yellow area on the inside of the lower lid with hordeolum present Neck: Normal visual inspection and Yes full ROM Respiratory: Normal respiratory effort and able to speak in complete sentences. Skin: No rashes or lesions noted Neuro: Patient oriented x3 Extremities: Normal to inspection [facility] Medical History History of sleep apnea History of hiatal hernia Surgical History History of uvulectomy History of tonsillectomy History of cholecystectomy History of appendectomy History of bilateral breast reduction surgery Family History Mother Substance abuse Father Bladder cancer Brother Substance abuse Brother Substance abuse Sister Substance abuse Social History [facility] Alcohol intake: current Patient Tobacco Use Status: Former Tobacco user Cigarettes Per Day: 10 e-Cigarette/Vaping Use: Never Used Second Hand Smoke Exposure: No service: No Current occupational status: employed Current occupational exposures/hazards: No Cognitive needs: No Hearing needs: No Vision needs: Yes Review of Systems Const All systems reviewed & are unremarkable except as noted in HPI and below Physical Exam Vital Signs: Last Vital Signs Temp 97.2 F 03/30/24 12:04 Pulse 100 03/30/24 12:04 BP 108/68 03/30/24 12:04 Pulse Ox 95 03/30/24 12:04 Oxygen Delivery Method Room Air 03/30/24 12:04 BMI result Body Mass Index 35.5 Assessment & Plan Assessment & Plan (1) Hordeolum externum of right lower eyelid: Code(s): H00.012 - Hordeolum externum right lower eyelid Plan: Plan - Initiate treatment with erythromycin ophthalmic ointment, applying it to the infected area of the right eyelid four times daily for seven days. - Advise continuation of warm compresses and utilization of lid scrubs to aid in symptom relief and hygiene. - Monitor the response to therapy and reassess if symptoms persist or worsen. Patient was informed and verbally consented to the use of an ambient scribe for clinic note documentation during this visit. Medications: New erythromycin 0.5 inches ophthalmic-Right QID 3.5 grams 0RF Coding Level of Care Code Est Pt Level 3 (01148) Diagnoses Hordeolum externum of right lower eyelid H00.012
== END 2024-03-30 12:26 | disposition home or self-care (01) ==
PROVIDERS: PCP Internal Medicine; Visit Provider Physician Assistant
DX: H00.012 Hordeolum externum right lower eyelid (principal)

== ENCOUNTER → 2024-03-30 11:39 | Outpatient (BNVA) | payer OTHER, SELFPAY | PROVIDERS: PCP Internal Medicine; Visit Provider Physician Assistant ==

== ENCOUNTER 2024-04-22 08:54 | Outpatient (AMB) | payer OTHER, SELFPAY ==
--- NOTE | 2024-04-22 09:03 | MHC.OFFVIS ---
Vital Signs 04/22/24 09:08 Height 5 ft 6.73 in Weight 217 lb 6.012 oz BMI 34.3 BP 94/70 Blood Pressure Location Rt brachial Position Sitting Pulse 86 Pulse Source Pulse Oximeter Intake Visit Reasons: Other specified disorders of bone density and stru Intake Note: New patient internally referred by PCP for Other specified disorders of bone density. Ski Tow Operator Required: No Accompanied by: Self / Same As Patient Allergies phenytoin [From Dilantin] Allergy (Severe, Verified 04/22/24 09:08) rash amoxicillin Allergy (Intermediate, Verified 04/22/24 09:08) rash Medication List - Last Reconciled 04/22/24 by Bud Lorenzo MD aspirin 81 mg PO DAILY Bacillus coagulans-inulin 1 billion-250 cell-mg caps PO calcium citrate-vitamin D3 315 mg-6.25 mcg (250 unit) 1 tab PO BID ergocalciferol (vitamin D2) 1,250 mcg PO QWEEK erythromycin 0.5 inches ophthalmic-Right QID fluocinonide 0.05% mL topical BID PRN hydrocortisone 2.5% appl topical ketoconazole 2% 1 appl topical 2XW PRN lisinopril 20 mg PO DAILY 90 days lorazepam 0.5 mg PO BID PRN omeprazole 20 mg PO DAILY prednisone 10 mg PO DIRECTED sertraline 100 mg PO DAILY 90 days Zepbound (tirzepatide (weight loss)) 2.5 mg (0.5 mL) subcut QWEEK NS HPI Comments Details: 58 YO Female with PMHx giant cell arteritis is seen in consultation at the request of PCP for low bone mass First diagnosed in 3-4 wks ago. On steroid taper Not Received treatment in the past No history of pathologic fracture or ONJ. Has severral servings of dietary calcium per day in the form of cheese , milk . Takes Calcium supplement 630 mg daily in divided doses. Takes 500 IU of Vitamin D daily since August 2023 and 78573 IU of ergo 2 mos a go Uses PPI, -anticoagulant,- antiepileptic but uses glucocorticoid medication. 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 UTD on dental cleanings and sees dentist every 6 months. No planned upcoming dental work or extractions. Previous tabacco but stopped 4-5 yrs ago DXA dated 12/04/2023 :FINDINGS: LEFT FEMUR, NECK: BMD 0.817 g/cm2, Z-score -1.0, T-score -1.6, osteopenia. LEFT FEMUR, TOTAL: BMD 0.949 g/cm2, Z-score -0.3, T-score -0.5, normal. AP SPINE L1-L4: BMD 1.117 g/cm2, Z-score -0.4, T-score -0.5, normal. IDENTIFIED RISK FACTORS: Recurrent falls, menopause, anticonvulsant, glucocorticoids. HISTORY OF FRACTURE: None listed. MEDICATIONS: Calcium supplements or multivitamin, vitamin D. MM/XR DEXA axial skeleton IMPRESSION: 1. DIAGNOSIS: Osteopenia based on the lowest T-score value of -1.6 in the femoral neck applying World Health Organization criteria. Labs: [facility] Medical History History of sleep apnea History of hiatal hernia Surgical History History of uvulectomy History of tonsillectomy History of cholecystectomy History of appendectomy History of bilateral breast reduction surgery Family History Mother Substance abuse Father Bladder cancer Brother Substance abuse Brother Substance abuse Sister Substance abuse Social History Housing: Condominium Alcohol intake: current Patient Tobacco Use Status: Former Tobacco user Cigarettes Per Day: 10 e-Cigarette/Vaping Use: Never Used Second Hand Smoke Exposure: No service: No Current occupational status: employed Current occupational exposures/hazards: No Cognitive needs: No Hearing needs: No Vision needs: Yes Physical Exam Vital Signs: BMI result Body Mass Index 34.3 There are Cushingoid appearance . Absence of blue sclera. Absence of kyphosis. Thyroid gland is of nl size and weighs 15 gms. There are no thyroid nodules palpated. Lungs CTA. Heart S1 S2 Reg R/R Abdominal exam benign. Muscle strength 5/5 . Examination of spine reveals absence of tenderness on palpation Assessment & Plan Assessment & Plan (1) Osteopenia: Code(s): M85.80 - Other specified disorders of bone density and structure, unspecified site Category: Medical Plan: This is a 58-year-old white female with a history of low bone mass in the setting of giant cell arteritis and steroid use. Rule out secondary causes. She was found to have a slightly low vitamin-D level Plan is to complete the secondary workup by checking phosphorus, 24 hour urine for calcium and creatinine, SPEP, urine immunofixation and repeat 25 hydroxy vitamin-D level . Will ensure 1200 mg of calcium intake and replete vitamin-D levels . Terms of pharmacologic therapy, she does not meet criteria for pharmacologic treatment by FRAX criteria but treatment may be warranted if patient is steroid dependent. However patient tells me that she will be stopping the steroids next few months and I am not sure that pharmacologic therapy as indicated considering the discontinuation of steroids and subsequent low risk of fracture. Orders: Orders Phosphorus Today M85.80 - Other specified disorders of bone density and structure, unspecified site Calcium, 24 Hr Ur Today M85.80 - Other specified disorders of bone density and structure, unspecified site Vitamin D 25-OH Total Today M85.80 - Other specified disorders of bone density and structure, unspecified site Protein Electrophoresis, Serum Today M85.80 - Other specified disorders of bone density and structure, unspecified site Creatinine, 24 Hr Group Today M85.80 - Other specified disorders of bone density and structure, unspecified site Immunofixation, Random Urine Today M85.80 - Other specified disorders of bone density and structure, unspecified site Coding Level of Care Code New Pt Level 4 (36191) Diagnoses Osteopenia M85.80
[2024-04-22 09:08] VITALS: BP 94/70; PULSE 86; BMI 34.3
== END 2024-04-22 09:58 | disposition home or self-care (01) ==
PROVIDERS: PCP Internal Medicine; Visit Provider Internal Medicine Endocrinology, Diabetes & Metabolism
DX: M85.80 Other specified disorders of bone density and structure, unspecified site (principal)
CPT/HCPCS: 99204

== ENCOUNTER 2024-04-22 10:01 | Outpatient (REF) | payer OTHER, SELFPAY ==
[2024-04-22 10:50] LABS: Phosphorus 3.7 mg/dL (2.7-4.5)
[2024-04-22 11:08] LABS: Vitamin D 25-OH Total 36.9 ng/mL (>30)
[2024-04-23 22:24] LABS: Prot Elec - Albumin 4.1 g/dL (3.8-4.8); Prot Elec - Alpha1 0.4 g/dL (0.2-0.3); Prot Elec - Alpha2 0.7 g/dL (0.5-0.9); Prot Elec - Beta 1 0.5 g/dL (0.4-0.6); Prot Elec - Beta 2 0.5 g/dL (0.2-0.5); Prot Elec - Gamma 0.8 g/dL (0.8-1.7); Prot Elec - Total Protein 6.9 g/dL (6.1-8.1)
== END 2024-04-22 10:02 | disposition home or self-care (01) ==
LOC: HO.10HDL 10:01
PROVIDERS: Visit Provider Internal Medicine Endocrinology, Diabetes & Metabolism
DX: M85.80 Other specified disorders of bone density and structure, unspecified site (principal)
CPT/HCPCS: 36415; 82306; 84100; 84165

== ENCOUNTER 2024-04-24 09:35 | Outpatient (REF) | payer OTHER, SELFPAY ==
[2024-04-24 12:15] LABS: Creatinine, mg/dL 106.45
[2024-04-24 12:54] LABS: Creatinine, 24Hr Urine 0.9 G/Day (1.0-2.0); Total Volume 24 Hour Urine 825 mL
[2024-04-27 16:19] LABS: Calcium, 24 Hr Urine 106 mg/24 h; Calcium/Creatinine Ratio 123 mg/g creat (30-275); Creatinine 24Hr Urine 0.86 g/24 h (0.50-2.15)
== END 2024-04-24 09:36 | disposition home or self-care (01) ==
LOC: HO.10HDLNP 09:35
PROVIDERS: Visit Provider Internal Medicine Endocrinology, Diabetes & Metabolism
DX: M85.80 Other specified disorders of bone density and structure, unspecified site (principal)
CPT/HCPCS: 82340; 82570; 86335

== ENCOUNTER 2024-05-07 12:32 | Outpatient (AMB) | payer OTHER, SELFPAY ==
--- NOTE | 2024-05-07 13:00 | MHC.PC.OV ---
Vital Signs 05/07/24 13:01 Height 5 ft 6 in Weight 221 lb BMI 35.7 BP 102/64 Blood Pressure Location Lt brachial Position Sitting Pulse 86 Pulse Source Pulse Oximeter Temp 98.3 F Temp Source Oral Pulse Oximetry (%) 96 Oxygen Delivery Method Room Air Intake Visit Reasons: Tingles in back, numbness in R hand Intake Note: Pt is here today for a sick visit. Pt c/o tingiling in her back and numbness in her R hand and arm. Allergies phenytoin [From Dilantin] Allergy (Severe, Verified 05/07/24 13:03) rash amoxicillin Allergy (Intermediate, Verified 05/07/24 13:03) rash Tobacco use date assessed: 05/07/24 Dental Screening Dental Screen Date: 05/07/24 Did you have a dental visit in the last 12 months?: Yes Did you have a dental problem in the last 6 months where you did not have access to dental care?: No Was dental information given to patient?: Patient has dentist HPI Tingles in back, numbness in R hand HPI Details Pt presents c/o midback tingling sensation on and off lasting for a few secs at the time for the last month. Patient denies chest pain palpitations shortness or breath pleurisy fever chills night sweats weakness or numbness in extremities. She has been under lot of stress related to her friends. Chronic anxiety stable on sertraline and patient has been tapering down prednisone dose for GCA. Hypertension is controlled on lisinopril. Patient has been taking Zepbound and decreasing caloric intake [facility] Medical History History of sleep apnea History of hiatal hernia Surgical History History of uvulectomy History of tonsillectomy History of cholecystectomy History of appendectomy History of bilateral breast reduction surgery Family History Mother Substance abuse Father Bladder cancer Brother Substance abuse Brother Substance abuse Sister Substance abuse Social History Housing: Condominium Alcohol intake: current Patient Tobacco Use Status: Former Tobacco user Cigarettes Per Day: 10 e-Cigarette/Vaping Use: Never Used Second Hand Smoke Exposure: No service: No Current occupational status: employed Current occupational exposures/hazards: No Cognitive needs: No Hearing needs: No Vision needs: Yes Questionnaire PHQ-9 Over the last 2 weeks, how often have you been bothered by any of the following problems? 1. Little interest or pleasure in doing things: not at all 2. Feeling down, depressed, or hopeless: not at all 3. Trouble falling or staying asleep, or sleeping too much: not at all 4. Feeling tired or having little energy: several days 5. Poor appetite or overeating: not at all 6. Feeling bad about yourself - or that you are a failure or have let yourself or your family down: not at all 7. Trouble concentrating on things, such as reading the newspaper or watching television: not at all 8. Moving or speaking so slowly that other people could have noticed. Or the opposite - being so fidgety or restless that you have been moving around a lot more than usual: not at all 9. Thoughts that you would be better off or of hurting yourself in some way: not at all Total score: 1 Depression Screening Interpretation: Negative Depression Screening Done: Yes 61955 - PHQ-9 Billing: Yes Source: Developed by Drs. Bud Riley, Paulette Ruiz, Aric Ospina and colleagues, with an educational randall from [employer]. Thrive Questionnaire Date Thrive assessed: 05/07/24 I am a: Patient What is your living situation today?: I have a steady place to live Within the past 12 months, did the food you bought not last and you didn't have the money to get more?: Never true Within the past 12 months, did you worry whether your food would run out before you got money to buy more?: Never true Do you have trouble paying for medicines?: No Do you have trouble getting transportation to medical appointments?: No Do you have trouble paying your heating and electricity bill?: No Do you have trouble taking care of your child, family member or friend?: I choose not to answer this question Do you have trouble with day-to-day activities such as bathing, preparing meals, shopping, managing finances, etc.?: I choose not to answer this question Are you currently unemployed and looking for a job?: No Are you interested in more education?: No Please select the resources that you would like help with: None Currently or been in a relationship where the following occur: No concerns reported THRIVE Score: 0 AUDIT C Alcohol Use Questionnaire (AUDIT-C) 1. How often do you have a drink containing alcohol?: 2-4 times a month 2. How many drinks containing alcohol do you have on a typical day when you are drinking?: 1 or 2 3. How often do you have six or more drinks on one occasion?: Never Total Score: 2 JODIE-7 AMB Questionnaire JDOIE-7 Date JODIE - 7 assessed: 05/07/24 Feeling nervous, anxious, or on edge: 1 = Several days Not being able to stop or control worryin = Not at all Worrying too much about different things: 0 = Not at all Trouble relaxin = Not at all Being so restless that it is hard to sit still: 0 = Not at all Becoming easily annoyed or irritable: 0 = Not at all Feeling afraid as if something awful might happen: 0 = Not at all Total JODIE-7 score (0-4 normal; 5-9 mild; 10-14 moderate; 15-21 severe): 1 Source: Developed by Drs. Bud Riley, Paulette Ruiz, Aric Ospina and colleagues, with an educational randall from [employer]. JODIE-7 Assessment Billing JODIE-7 Assessment Tool: JODIE-7 Assessment 10165 Review of Systems Const All systems reviewed & are unremarkable except as noted in HPI and below Eyes Reports no additional complaints ENT Reports no additional complaints Card Reports no additional complaints Resp Reports no additional complaints GI Reports no additional complaints Physical exam (Primary Care) Vital Signs: Last Vital Signs Temp 98.3 F 05/07/24 13:01 Pulse 86 05/07/24 13:01 BP 102/64 05/07/24 13:01 Pulse Ox 96 05/07/24 13:01 Oxygen Delivery Method Room Air 05/07/24 13:01 BMI result Body Mass Index 35.7 Tobacco/Smoking Status: Tobacco use Status Tobacco use date assessed 05/07/24 05/07/24 13:06 Patient Tobacco Use Status Former Tobacco user 05/07/24 13:01 e-Cigarette/Vaping Use Never Used 05/07/24 13:01 PHQ-9: PHQ-9 Score PHQ-9: Total score 1 05/07/24 13:08 Depression Screening Interpretation: Negative Thrive Assessment: Date of Thrive Assessment Date Thrive assessed 05/07/24 05/07/24 13:06 Currently or been in a relationship where the following occur: No concerns reported Const General: no acute distress HENMT Head: Yes normal to inspection Throat: Yes posterior oropharynx normal Neck Neck: Yes no lymphadenopathy and Yes supple Resp Effort & Inspection: normal respiratory effort Auscultation: clear to auscultation bilaterally Cardio Rhythm: regular rhythm Heart sounds: S1 normal heart sound present and S2 normal heart sound present GI Inspection: Yes normal to inspection Coding Level of Care Code Est Pt Level 4 (57827) Diagnoses Giant cell arteritis M31.6 Essential hypertension I10 Anxiety F41.9 Additional Codes JODIE-7 Assessment Billing - JODIE-7 Assessment Tool: JODIE-7 Assessment 83790 ([id number]) PHQ-9 - 17503 - PHQ-9 Billing: Yes ([id number]) Assessment & Plan Assessment & Plan (1) Giant cell arteritis: Comment: dxd at [facility] , elevated ESR but negative TA bx, negative temporary artery ultrasound and PET scan, started on Prednisone 09/05, R eye vision loss, Code(s): M31.6 - Other giant cell arteritis Category: Medical Plan: Follow-up with neurology (2) Essential hypertension: Code(s): I10 - Essential (primary) hypertension Category: Medical Plan: Continue lisinopril, EKG showed normal sinus rhythm no ST-T change (3) Anxiety: Code(s): F41.9 - Anxiety disorder, unspecified Category: Medical Plan: Continue Zoloft and stress management discussed with the patient
[2024-05-07 13:01] VITALS: BP 102/64; PULSE 86; TEMP 36.8; O2SAT 96; BMI 35.7
--- OUTSIDE RECORDS SUMMARY | 2024-05-07 14:52 | XMS_ITS | Referral Summary ---
Author Organization [facility] Address [address] [place] [address] Care Team Providers Care Top Printing Press Operator Name Role Phone Amelie Carr Primary Care Provider [phone] Encounters Date Type Department Care Team Description 02/05/[address] [phone] Telephone Intake, Staff from Last 3 Months Allergies Active Allergy Reactions Criticality Noted Date Comments Amoxicillin Rash 08/14/2023 Phenytoin Sodium Extended Rash 08/14/2023 Medications sertraline (ZOLOFT) 100 mg tablet Take 100 mg by mouth once a day. Active semaglutide, weight loss, (Wegovy) 0.25 mg/0.5 mL pen injector Inject 0.25 mg under the skin every 7 days. Active lisinopriL (PRINIVIL,ZESTR IL) 20 mg tablet Take 20 mg by mouth once a day. Active aspirin chewable tablet 81 mg Chew and swallow 1 tablet (81 mg total) by mouth once a day. 30 tablet 11 08/18/2023 5 Active atorvastatin (LIPITOR) 80 mg tablet Take 1 tablet (80 mg total) by mouth once a day. 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 Social History Tobacco Use Types Packs/Day Years Used Date Smoking Tobacco: Former Cigarettes Smokeless Tobacco: Never Tobacco Cessation:Counseling Given: Not Answered Comments Unknown Sex and Gender Information Value Date Recorded Sex Assigned at Female 08/14/2023 2:23 PM EDT Legal Sex Female 3:33 AM EDT Gender Identity Female 08/26/2023 3:54 PM EDT Sexual Orientation Straight 08/26/2023 3: 54 PM EDT Last Filed Vital Signs Vital Sign Reading Time Taken Comments Blood Pressure 109/73 08/17/2023 3:04 PM EDT Pulse 89 08/17/2023 3:04 PM EDT Temperature 36.8 ??C (98.3 ??F) 08/17/2023 3:04 PM ED T Respiratory Rate 18 08/17/2023 3:04 PM EDT Oxygen Saturation 94% 08/17/2023 3:04 PM EDT Inhaled Oxygen Concentration - - Weight 90.7 kg (200 lb) 08/14/2023 4:34 PM EDT Height 167.6 cm (5' 6 ) 08/14/2023 4:34 PM EDT Body Mass Index 32.28 08/14/2023 4:34 PM EDT Plan of Treatment Upcoming Encounters Date Type Department Care Team (Late st Contact Info) Description 08/05/2024 10:30 AM EDT Research Encounter [address] [address] Sandy Cueto MD [address] [place] [id number] Procedures * Due to [place] [employer] law, this organization might not be sharing negative HIV tests. Procedure Name Priority Date/Time Associated Diagnosis Comments COMPREHENSIVE METABOLIC PANEL Routine 08/16/2023 6:31 AM EDT from Last 3 Months or Most Recently Relevant to Health Maintenance Results * Due to [facility] law, this organization might not be sharing negative HIV tests. * Comprehensive Metabolic Panel (08/16/2023 6:31 AM EDT) NA 144 135 - 145 mmol/L 08/16/2023 8:05 AM EDT [facility] K 4.3 3.5 - 5.3 mmol/L 08/16/2023 8:05 AM [employer] [facility] Cl 108 97 - 110 mmol/L 08/16/2023 8:05 AM [employer] [facility] CO2 29 24 - 32 mmol/L 08/16/2023 8:05 AM [employer] [facility] Anion Gap 7 5 - 15 08/16/2023 8:05 AM [employer] [facility] Glucose 86 70 - 99 mg/dL 08/16/2023 8:05 AM [employer] [facility] Creatinine 0.73 0.50 - 1.20 mg/dL 08/16/2023 8:05 AM [employer] [facility] Calcium 8.9 8.7 - 10.7 mg/dL 08/16/2023 8:05 AM [employer] [facility] Total Protein 6.5 6.0 - 8.0 g/dL 08/16/2023 8:05 AM [employer] [facility] Albumin 3.8 3.5 - 4.8 g/dL 08/16/2023 8:05 AM [employer] [facility] Bilirubin, Total 0.4 0.3 - 1.2 mg/dL 08/16/2023 8:05 AM [employer] [facility] Alkaline Phosphatase 105 30 - 115 U/L 08/16/2023 8:05 AM [employer] [facility] AST 18 10 - 40 U/L 08/16/2023 8:05 AM [employer] [facility] ALT 14 10 - 40 U/L 08/16/2023 8:05 AM [employer] [facility] BUN 13 7 - 23 mg/dL 08/16/2023 8:05 AM [employer] [facility] eGFR >90 >=60 mL/min/1. 73m2 08/16/2023 8:05 AM [employer] [facility] Comment:The estimated glomer ular filtration rate (eGFR) is calculated using a new formula developed by the NKF-ASN task force to eliminate race-based correction factors. The new formula uses serum/plasma creatinine, age, and gender to determine eGFR. A value below 60mls/min might indicate kidney disease and will be flagged. For additional information, see Alessia et al, Am J Kidney Dis. 2021;79(2):268- 288, A Unifying Approach for GFR estimation: Recommendations of the NKF-ASN Task Force on Reassessing the Inclusion of Race in Diagnosing Kidney Disease . Blood Structure of peripheral vein / Unknown Venipuncture / Unknown 08/16/2023 6:31 AM EDT 08/16/2023 7:13 AM EDT us Prakash Reilly MD LAB BLOOD ORDERABLES Final [facility]ul t [facility] [address] [place] [address] from Last 3 Months or Most Recently Relevant to Health Maintenance Insurance HSNO/FREE [place] [address] [place] [address] Advance Directives Documents on File Type Date Recorded Patient Fisher Trawl Line Expl anation Health Care Proxy 08/19/2023 8:51 AM 2023 * Full Code (Latest Code Status on File) Date Activated Date Inactivated Comments 08/15/2023 12:07 PM 08/17/2023 7:17 PM Healthcare Agents on File Name Relationship Healthcare Agent [facility] Communication Ana Jean Baptiste Sister Health Care Agent Care Teams Top Printing Press Operator Relationship Specialty Start Date End Date Amelie Carr [address] [place] [address] PCP - General Internal Medicine 08/13/23
--- OUTSIDE RECORDS SUMMARY | 2024-05-07 14:52 | XMS_ITS | Clinical Summary ---
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 Encounters Date Type Department Care Team Description 02/05/2024 Telephone [facility] [place] [address] [place], [place] [id number] Telephone Intake, Staff from Last 3 Months Family History Medical History Relation Name Comments Macular degeneration Brother Cancer Father Diabetes Father Glaucoma Maternal Grandmother Macular degeneration Sister Relation Name Status Comments Brother Father Maternal Grandmother Sister Social History Tobacco Use Types Packs/Day Years [...] Description 08/05/2024 10:30 AM EDT Research Encounter [facility] [address] [address] Sandy Cueto MD [address] [place] [id number] Health Maintenance Due Date Last Done Comments Cervical Cancer Screening 1963 Cologuard 1963 Colon Cancer Screening 1963 Colonoscopy 1963 FOBT / Fit Test 1963 HIV Screening 1963 HPV and Pap Smear 1963 Pap Smear [address] Lung Cancer Screening (Baseline) 2013 Mammogram 06/23/2022 06/23/2020, 06/13, 11/27/2018 COVID-19 Vaccine ( season) 2023 08/19/2023, 04/26/2023, 01/16/2023, Additional history exists Influenza Vaccine (#1) 2023 , 01/14/2022, 01/15/2021, Additional history exists Alcohol/Substance Use Screening 04/15/2024 Depression Screening and Follow-Up 04/15/2024 Social Drivers of Health Annual Screening 04/15/2024 Basic Metabolic Panel 09/10/2024 09/11/2023 , 09/10/2023, 09/09/2023, Additional history exists DTaP,Tdap,and Td Vaccines (3 - Td or Tdap) 04/26/2033 04/26/2023, 09/21/2010, 07/22/2003 Zoster Vaccines Completed 04/19/2023, 01/14/2022 RSV Vaccine (60+ years old and patients) Completed 08/19/2023 Hepatitis C Screening Completed 09/07/2023 Hepatitis B Vaccines Aged Out No long er eligible based on patient's age to complete this topic Pneumococcal Vaccine: Pediatric (0-5 Years) and At-Risk Patients (6-64 Years) Aged Out No longer eligible based on patient's age to complete this topic Procedures * Due to [place] [employer] law, this organization might not be sharing negative HIV tests. Procedure Name Priority Date/Time Associated Diagnosis Comments COMPREHENSIVE METABOLIC PANEL Routine 08/16/2023 6:31 AM EDT from Last 3 Months or Most Recently Relevant to Health Maintenance Results * Due to [place] [employer] law, this organization might not be sharing negative HIV tests. * Comprehensive Metabolic Panel (08/16/2023 6:31 AM EDT) NA 144 135 - 145 mmol/L 08/16/2023 8:05 AM EDT [facility] K 4.3 3.5 - 5.3 mmol/L 08/16/2023 8:05 AM EDT [facility] Cl 108 97 - 110 mmol/L 08/16/2023 8:05 AM EDT [facility] CO2 29 24 - 32 mmol/L 08/16/2023 8:05 AM [facility] Anion Gap 7 5 - 15 08/16/2023 8:05 AM [facility] Glucose 86 70 - 99 mg/dL 08/16/2023 8:05 AM [facility] Creatinine 0.73 0.50 - 1.20 mg/dL 08/16/2023 8:05 AM [facility] Calcium 8.9 8.7 - 10.7 mg/dL 08/16/2023 8:05 AM [facility] Total Protein 6.5 6.0 - 8.0 g/dL 08/16/2023 8:05 AM [facility] Albumin 3.8 3.5 - 4.8 g/dL 08/16/2023 8:05 AM [facility] Bilirubin, Total 0.4 0.3 - 1.2 mg/dL 08/16/2023 8:05 AM [facility] Alkaline Phosphatase 105 30 - 115 U/L 08/16/2023 8:05 AM [facility] AST 18 10 - 40 U/L 08/16/2023 8:05 AM [facility] ALT 14 10 - 40 U/L 08/16/2023 8:05 AM [facility] BUN 13 7 - 23 mg/dL 08/16/2023 8:05 AM [facility] eGFR >90 >=60 mL/min/1. 73m2 08/16/2023 8:05 AM [facility] Comment:The estimated glomer ular [...] MD LAB BLOOD ORDERABLES Final Resul t [email or web address] [address] [place] [address], from Last 3 Months or Most Recently Relevant to Health Maintenance Insurance HSNO/FREE CARE Advance Directives Documents on File Type Date Recorded Patient Supervising Bailiff Expl [facility] Health Care Proxy 08/19/2023 8:51 AM 2023 * Full Code (Latest Code Status on File) Date Activated Date Inactivated Comments 08/15/2023 12:07 PM 08/17/2023 7:17 PM Healthcare Agents on File Name Relationship Healthcare Agent Relationshi p Communication Ana Jean Baptiste Sister Health Care Agent Care Teams Brush Hand Relationship Specialty Start Date End Date Amelie Carr [address] [place] [address] PCP - General Internal Medicine 08/13/23
--- OUTSIDE RECORDS SUMMARY | 2024-05-07 14:52 | XMS_ITS | Data Portability ---
Author Organization [place] - [facility],, JESSIKA MCCLOUD MD Address [address] [facility] [address] [place] [address] Care Team Providers Care Livestock Sales Representative Name Role Phone SÁNCHEZ BELL Primary Care Provider Assessment No assessment recorded. Plan of Treatment Reminders Order Date Submit Date Provider Last Modified By Organization Details Last Modified Time Details Appointments None recorded. Lab pap test, thinprep, cervical 2021 022 harrison [facility], Cytopathology Service, [address] [place], [address], 2 08:05:47 fecal occult blood, stool 2021 022 [email or web address] 1 In-Office Order, Internal Use Only DO Not Attach Compendium DO Not Attach Compendium, Do Not Delete/merge, [id number] 2 13:20:41 brca (1+2) mutation analysis, blood or tissue 2021 022 [email or web address] [facility], [address] [place] [address], [address], 2 08:58:15 pap test, thinprep, cervical 2022 023 harrison [facility], [facility] [place], [address], 3 07:46:03 fecal occult blood, stool 2022 023 [email or web address] 1 In-Office Order, Internal Use Only DO Not Attach Compendium DO Not Attach Compendium, Do Not Delete/merge, [id number] 3 09:52:32 Referral None recorded. Procedures None recorded. Surgeries None recorded. Imaging MAMMO, screening , digital, bilateral 2021 022 [email or web address] [facility] ([facility]), [address] [facility], [place], [address], 4 07:28:47 MAMMO, screening , digital, bilateral - Breast Aspiratio n and/or Biopsy if needed [email or web address] [place] [address] (Imaging), [address] [facility], [place], [address], 4 07:48:34 Medication Orders nystatin 100,000 unit/gram topical powder 2022 023 [facility][id number], [address] [facility] [place], [address], 3 09:53:24 Patient TargetsNo targets recorded. Patient Instructions Encounter Date Encounter Id Patient Instructions Last Modified By Organization Details Last Modified Time 09/28/2021 [id number] learning about healthy weight [email or web address] Not available 09/28/2021 13:20:40 She is here as a new patient for annual exam. Menopause age 43, nulligravid, single, never smoker, presently not sexually active. Has moderate night sweats some nights but not others. Discussed dietary issues for night sweats. She appears to be doing well. She is advised to get 1500 mg of calcium daily into her diet and supplements combined. There is a health benefit with adequate vitamin D supplementation to at least 400 units daily, daily aerobic exercise of 30 minutes, and stress reduction. Monthly self breast exam was taught, and stressed, and is advised to call if she discovers any new mass in the breast. [email or web address] Not available 09/28/2021 13:21:26 11/02/2021 [id number] She is here for BRCA testing, she has a strong family history of breast cancer in her paternal aunt and also 2 paternal first cousins. We discussed her strong family history of breast cancer. We discussed that only 5% of patients who have a strong family history of breast and /or ovarian cancer will ultimately be found to be BRCA positive.? ? ? We discussed how the human genome functions to transfer traits and risks, and what a mutation is, and how this can be passed from parent to child.? ? ? We discussed the 50% chance that a BRCA positive individual will give the mutation to their child, and that 50% of the children, statistically, will not inherit the mutation, which means that they can not pass it on.? ? ? It does not skip a generation. We reviewed the statistics on risks for breast and ovarian cancer in the general populatoin, and in a BRCA positive individual, as stated in the take home booklet Hereditary Breast and Ovarian Cancer Syndrome, A patient's guide to risk assessment , and she received this to go home with, to review again. We discussed that by law an insurer can not discriminate against her if she were to test positive, for health insurance. We discussed the company that does the test, and that there is only one company that does this testing and so all tests go here. She is aware that the co payment could be a maximum amount of 375 dollars, and that the testing company ([facility]) will contact her if the co pay were to be more than that, prior to running the test, to get her approval. If she were to test postiive for the BRCA mutation then she could be offered a management protocol that could include increased testing, including breast MRI, removal of her ovaries, preventitive medical therapy such as raloxifene, and even prophypactic removal of her breast tissue. She is aware. Implications for testing of other family members if she were to be postiive, and the decreased cost for that testing, discussed. All questions answered.? ? ? She would like? ? ?to be tested, and she qualifies to be tested.? ? ?She is aware that it is her responsibility to be certain the test will be covered by her insurance however we will work with her to get accurate information for her to make decisions. Face to face discussion? ? ?50 minutes Not available 11/02/2021 10:50:36 10/01/2022 [id number] learning about healthy weight Not available 10/01/2022 09:52:31 She is her for annual, doing well. BRCA testing last year was negative. Note from 2021: She is here as a new patient for annual exam. Menopause age 43, nulligravid, single, never smoker, presently not sexually active. Has moderate night sweats some nights but not others. Discussed dietary issues for night sweats. She appears to be doing well. Rx NyStop powder for monilia in umbilicus. Monthly self breast exam was taught, and stressed, and is advised to call if she discovers any new mass in the breast. Not available 10/01/2022 09:54:20 Reason for Referral None Reported. Results Created Date Observation Date Name Description Value Unit Range Abnormal Flag Note LastModifiedBy Organization Detail LastModifiedTime 09/29/19 22 09/28/2021 PAP1C ASE [email or web address] ThinP rep Pap, Image d: NEGAT RAJ FOR SQUAM OUS INTRA EPITH ELIAL LESLIHN Yoon AND MOHINI BABIN . Indigo L[place] , CT( CP) (Case elect lazarus kilgore jose g d 10 04 2021) ADEQU ACY: Satis facto ry Endoc ervic al/tr ansfo rmati on zone compo nent prese nt. SOURC E: ThinP rep Pap HPV IF Ascus : Refle x 16 and 18, Cervi lonnie, Image d CLINI LONNIE INFOR MATIO N: HPV If Diagn osis of ASCUS . LPS no resul ts. [Z12. 4, Z01.4 19] Not Available [facility], Cytopathology Service [address] [place], [address], 10/05/2021 07:31:06 09/29/19 22 09/28/2021 fecal occul t blood , stool Occult Blood negati ve Not Available In-Office Order Internal Use Only DO Not Attach Compendium DO Not Attach Compendium, Do Not Delete/merge, [id number] 09/28/2021 08:09:06 10/02/19 23 10/01/2022 [facility] CYTOL OGY results Patie nt Name: MARION WEISS nt : 1965 (Age: 57) Lab Acces windy #: [id number] Colle ction Date: 2022 Acces windy Date: 2022 Sign Out Date: 023 Tissu e Sourc e: 1: THINP REP TOWER SWITCH OPERATOR PAP TEST, CERVI LONNIE: Final Diagn osis: NEGAT RAJ FOR INTRA EPITH ELIAL LESIO N OR MALIG OLAF . Satis facto ry for evalu ation . Endoc ervic al/tr ansfo rmati on zone ABSEN T. Clini lonnie Histo ry: Date of Last Menst rual Perio d: not avail able Menst rual Histo ry: Post- menop ausal Contr acept raj Histo ry: not avail able Ancil mandie Testi ng: HPV (ASCU S) Case image d by the ThinP rep Imagi ng Systheidi m with manoj sorto or blaze erazo. Clini lonnie Histo ry (othe r): Z01.4 19 , lps 09-28 neg Phone #: [phone], On-Ca ll Patho logis t: [id number] Not Available [facility] [address] [place], [address], 10/18/2022 09:17:01 10/02/19 23 10/01/2022 fecal occul t blood , stool Occult Blood negati ve Not Available In-Office Order Internal Use Only DO Not Attach Compendium DO Not Attach Compendium, Do Not Delete/merge, [id number] 10/01/2022 08:09:15 Result Notes None recorded. Problems Name Problem SNOMED Code Status Onset Date Resolution Date Notes Provider Name and Address Organization Details Recorded Time Family history of breast cancer 556203081 Active 2021 Jessika Mccloud MD [address], [place], [address] , [place] [facility], 2 10:50:04 Candidiasis of skin 09289537 Active 2022 Jessika Mccloud MD [address] [facility],[address], [place], [address], [place] - [facility], 3 09:52:43 Problem Notes None recorded. Procedures Surgical History Date Name Laterality Status Provider Name and Address Organization Details Recorded Time 12/27/19 22 Most Recent Mammogram completed Kelly Meczywor [place] - [facility], 10/01/2022 08:08:06 10/09/19 13 cholecystectomy completed Kelly Meczywor [place] - [facility], 09/28/2021 08:26:25 09/18/19 07 Hernia repair w/mesh completed Kelly Meczywor [place] - [facility], 09/28/2021 08:26:00 09/15/18 96 Breast reduction completed Kelly Meczywor [place] - [facility], 09/28/2021 08:25:48 09/15/18 69 procedure on kidney completed Kelly Meczywor [place] - [facility], 09/28/2021 08:25:34 Imaging Results None recorded. Procedure Notes None recorded. Medical Equipment None Reported. Allergies Allergen ID Allergen Name Allergen Category Reaction Reaction Severity Criticality Documentation Date Start Date Code Code System Note Provider Name and Address Organization Details Recorded Time 68696 Dilantin medicatio n hives Not available Not available 09/28/2021 0 RxNorm Kelly Meczywor null, [place] - [facility], 2 08:13:51 57643 amoxicill in medicatio n hives Not available Not available 09/28/2021 723 RxNorm Kelly Meczywor null, [place] - [facility], 2 08:14:04 Medications Name Sig Start Date Stop Date Status Note LastModified by Organization Details LastModified Time ketoconazol e 2 % shampoo APPLY TO SCALP 2 TIMES A WEEK, LEAVE ON 5 MIN THEN WASH OFF active Not Available Not Available No t Available azithromyci n 250 mg tablet TAKE 2 TABLETS BY MOUTH TODAY, THEN TAKE 1 TABLET DAILY FOR 4 DAYS 09/28 completed Not Available Not Available Not Available meloxicam 15 mg tablet TAKE 1 TABLET BY MOUTH DAILY FOR 30 DAYS active Not Available Not Available No t Available lisinopril 20 mg tablet TAKE 1 TABLET BY MOUTH EVERY DAY FOR 90 DAYS active Not Available Not Available No t Available prednisone 20 mg tablet TAKE 2 TABLETS BY MOUTH DAILY FOR 4 DAYS active Not Available Not Available No t Available sertraline 100 mg tablet TAKE 1 TABLET BY MOUTH EVERY DAY FOR 30 DAYS active Not Available Not Available No t Available terbinafine HCl 250 mg tablet TAKE 1 TABLET BY MOUTH EVERY DAY FOR 12 WEEKS 09/28 completed Not Available Not Available Not Available calcipotrie ne 0.005 % topical cream APPLY TO TRUNK, ARMS, LEGS TWICE A DAY NEEDED FOR FLARES 10/01 completed Not Available Not Available Not Available metronidazo le 0.75 % topical cream active Not Available Not Available Not Available betamethaso ne dipropionat e 0.05 % topical cream APPLY TO ABDOMEN, DECREASE SYMPTOMS IMPROVE active Not Available Not Available No t Available hydrocortis one 2.5 % topical cream APPLY TO LABIA TWICE A DAY, DECREASE SYMPTOMS IMPROVE active Not Available Not Available No t Available nystatin 100,000 unit/gram topical powder APPLY TOPICALLY TWICE A DAY NEEDED active Not Available Not Available No t Available fluocinonid e 0.05 % topical solution APPLY TO SCALP 2X DAILY NEEDED FOR FLARES active Not Available Not Available No t Available calcipotrie ne 0.005 % scalp solution APPLY TO SCALP TWICE A DAY ALTERNATI NG TIMES WITH TOPICAL STEROIDS active Not Available Not Available No t Available clobetasol 0.05 % scalp solution APPLY TO AFFECTED AREA EVERY DAY AT BEDTIME active Not Available Not Available No t Available betamethaso ne dipropionat e 0.05 % lotion APPLY TO SCALP TWICE A DAY DECREASE SYMPTOMS IMPROVE 10/01 completed Not Available Not Available Not Available sertraline 50 mg tablet TAKE 1 TABLET BY MOUTH EVERY DAY 10/01 completed Not Available Not Available Not Available naproxen 500 mg tablet TAKE 1 TABLET BY MOUTH TWICE A DAY active Not Available Not Available No t Available Athlete's Foot (terbinafin e) 1 % topical cream APPLY 1 APPLICATI ON TOPICALLY TWICE A DAY active Not Available Not Available No t Available diclofenac 1 % topical gel APPLY 2GR 4X A DAY TO SINGLE ELBOW, WRIST OR HAND FOR HAND INCLUDES PALM/FING ERS/BACK OF HAND active Not Available Not Available No t Available Vitals Date Recorded Body height Body mass index (BMI) Body weight Body temperature Heart rate Systolic blood pressure Diastolic blood pressure Provider Name and Address Organization Details Last Updated DateTime 2 170.18 cm 35 kg/m2 131634. 82 g 98.1 [degF] 67 /min 131 mm[Hg] 76 mm[Hg] Kelly Castillo in [facility], 2 08:12:08 Date Recorded Body height Body mass index (BMI) Body weight Heart rate Body temperature Systolic blood pressure Diastolic blood pressure Provider Name and Address Organization Details Last Updated DateTime 2 170.18 cm 34.9 kg/m2 276734. 1 g 97.2 /min 69 [degF] 128 mm[Hg] 73 mm[Hg] Cristina Castillo in [facility], 2 08:35:35 Date Recorded Body height Body mass index (BMI) Body weight Body temperature Heart rate Systolic blood pressure Diastolic blood pressure Provider Name and Address Organization Details Last Updated DateTime 3 165.1 cm 37.8 kg/m2 558046. 19 g 97.2 [degF] 91 /min 132 mm[Hg] 72 mm[Hg] Kelly Castillo in [facility], 3 08:04:31 Social History Question Answer Notes LastModified by Organizat ion Details LastModified Time Tobacco Smoking Status Never Smoker [place] Gregory in [facility], 09/28/2021 08:24:27 What Is Your Level Of Alcohol Consumption? Moderate Information not available 09/28/2021 How Many Years Have You Consumed Alcohol? 30 Information not available 09/28/2021 What Is Your Level Of Caffeine Consumption? Moderate Information not available 09/28/2021 In The 14 Days Before Symptom Onset, Have You Had Close Contact With A Laboratory-confir med COVID-19 While That Case Was Ill? No Information not available 09/28/2021 In The 14 Days Before Symptom Onset, Have You Had Close Contact With A Person Who Is Under Investigation For COVID-19 While That Person Was Ill? No Information not available 09/28/2021 Have You Been To An Area Known To Be High Risk For COVID-19? No Information not available 09/28/2021 Are You Currently Employed? Yes Information not available 09/28/2021 Which Illicit Or Recreational Drugs Have You Used? Marijuana Information not available 09/28/2021 What Is The Highest Grade Or Level Of School You Have Completed Or The Highest Degree You Have Received? 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 Unemployment Information not available 09/28/2021 Are There Any Guns Present In Your Home? No Information not available 09/28/2021 How Many Years Have You Used Illicit Or Recreational Drugs? 1 Information not available 09/28/2021 To Which Gender Do You Self-identify? Female Information not available 09/28/2021 What Was The Date Of Your Most Recent Tobacco Screening? 10/01/2022 Information not available 10/01/2022 What Is Your Relationship Status? Single Information not available 09/28/2021 Are You Sexually Active? No Information not available 09/28/2021 Do You Feel Stressed (tense, Restless, Nervous, Or Anxious, Or Unable To Sleep At Night)? [id number] Information not available 09/28/2021 Do You Use Any Illicit Or Recreational Drugs? Yes Information not available 09/28/2021 Do You Or Have You Ever Used Any Other Forms Of Tobacco Or Nicotine? No Information not available 09/28/2021 How Many Days In The Past Year Have You Consumed 4 Or More Drinks? 10 Information no t available 09/28/2021 Sex: Female Functional Status Question Answer Note LastModified by Organizat ion Details LastModified Time What is your exercise level? Occasional Information not available 09/28/2021 Mental Status None recorded. Family History Relationship Description Onset Age of this Age Resolved Age Notes LastModified by Organization Details LastModified Time Paternal Aunt Malignant tumor of breast 52 [email or web address] Not available 2021 08:18:01 Paternal Aunt Problem lung [email or web address] Not avai lable 11/02/2021 08:39:02 Unspecified Relation Malignant tumor of breast 32 patern al first cousin Not available 11/02/2021 10:48:55 Unspecified Relation Malignant tumor of breast 63 patern al first cousin Not available 11/02/2021 10:48:44 Father Problem bladde r [email or web address] Not available 09/28/2021 08:18:48 Paternal Uncle Problem leukem ia [email or web address] Not available 09/28/2021 08:18:48 Maternal Grandfather Heart disease [email or web address] Not available 2021 08:19:12 Maternal Uncle Heart disease [email or web address] Not available 2021 08:19:12 Mother Substance abuse [email or web address] Not available 2021 08:19:32 Medical History Condition Response Anesthesia complications N High Blood Pressure Y Candidate for MyRisk panel N Autoimmune Condition N Kidney or Bladder Problems Y Thyroid Problems N Depression Y Lung Disease N GI Problems Y Defects or Inherited Disease N History of Ovarian Cancer N Anemia N History of Breast Cancer N HAROLDO exposure N BRCA testing in past N Osteopenia N Psychiatric Illness N Anxiety Disorder Y Diabetes N Arthritis Y Headaches or Migraines Y Infertility N Asthma N History of Cancer N Endometriosis N Hepatitis N Heart Disease N Hypertension Y Osteoporosis N Gynecological History Statement/Question Response Menses Monthly N If Post Menopausal, Age at Menopause 43 Age at Menarche 11 Most Recent Mammogram 12/26/2021 Age at First Child 1 Obstetrics History GPAL:G 0 P 0 0 0 0 Immunizations Vaccine Type Date Status Note Provider Jonn e and Address Organization Details Recorded Time Influenza, split virus, quadrivalent, preservative 1 SHEILA Kraft in [facility], 09/28/2021 08:16:54 Influenza, split virus, quadrivalent, preservative 6 completed [place] [facility], 10/01/2022 08:05:25 Influenza, split virus, quadrivalent, preservative 9 completed Kelly Meczywor null, [place] - [facility], 10/01/2022 08:05:25 Influenza, split virus, quadrivalent, preservative 0 completed Kelly Meczywor null, [place] [facility], 10/01/2022 08:05:25 Influenza, MDCK, quadrivalent, PF 2 completed Kelly Meczywor [place] [facility], 10/01/2022 08:05:25 Rabies - IM Diploid cell culture 1 completed Kelly Meczywor [place], [place] [facility], 10/01/2022 08:05:25 Rabies - IM Diploid cell culture 1 completed Kelly Meczywor [place], [place] [facility], 10/01/2022 08:05:25 Rabies - IM Diploid cell culture 1 completed Kelly Meczywor [place], [place] [facility], 10/01/2022 08:05:25 Rabies - IM Diploid cell culture 1 completed Kelly Meczywor [place], [place] [facility], 10/01/2022 08:05:25 zoster recombinant 2 completed Kelly Meczywor null[place] [facility], 10/01/2022 08:05:25 COVID-19, mRNA, LNP-S, PF, 30 mcg/0.3 mL dose 1 completed Kelly Meczywor null, [place] [facility], 10/01/2022 08:05:25 COVID-19, mRNA, LNP-S, PF, 30 mcg/0.3 mL dose 1 completed Kelly Meczywor null, [place] [facility], 10/01/2022 08:05:25 COVID-19, mRNA, LNP-S, PF, 30 mcg/0.3 mL dose 1 completed Kelly Meczywor null, [place] [facility], 10/01/2022 08:05:25 COVID-19, mRNA, LNP-S, PF, 30 mcg/0.3 mL dose, gunner-sucrose 2 completed Kelly Meczywor null, [place] [facility], 10/01/2022 08:05:25 influenza, unspecified formulation 0 completed Kelly Meczywor [place], [place] [facility], 10/01/2022 08:05:25 Tdap 1 completed Kelly Meczywor [place], [place] [facility], 10/01/2022 08:05:25 RIG 1 completed Kelly Meczywor null, [place] [facility], 10/01/2022 08:05:25 Influenza, split virus, trivalent, preservative 4 completed Kelly Meczywor null[place] [facility], 10/01/2022 08:05:25 Influenza, split virus, trivalent, preservative 2 completed Kelly Meczywor null[place] [facility], 10/01/2022 08:05:25 Influenza, split virus, trivalent, preservative 5 completed Kelly Meczywor null[place] [facility], 10/01/2022 08:05:25 Influenza, split virus, quadrivalent, PF 0 completed Kelly Meczywor null[place] [facility], 10/01/2022 08:05:25 Influenza, split virus, quadrivalent, PF 1 completed Kelly Meczywor null[place] [facility], 10/01/2022 08:05:25 Influenza, split virus, quadrivalent, PF 9 completed Kelly Meczywor null, [place] [facility], 10/01/2022 08:05:25 Past Encounters Encounter ID Performer Location Encounter Start Date Encounter Closed Date Diagnosis/Indication Diagnosis SNOMED-CT Code Diagnosis ICD10 Code Diagnosis Note [id number] MD JESSIKA Villeda MD [address] [facility] [address] 09/28/2021 08:05:43 09/28/2021 14:45:35 Specialized medical examination 29695681 Z01.419 Screening for malignant neoplasm of rectum 221185931 Z12.12 Screening mammography 24 894993 Z12.31 [id number] MD JESSIKA Villeda MD [address] [facility] [address] 11/02/2021 08:33:46 11/02/2021 12:05:45 Family history of breast cancer 615029635 Z80.3 [id number] MD JESSIKA Villeda MD [address] [facility] [place] [address] 10/01/2022 07:58:47 10/01/2022 10:02:02 Specialized medical examination 00248298 Z01.419 Screening for malignant neoplasm of rectum 304867536 Z12.12 Screening mammography 24 105732 Z12.31 Candidiasis of skin 4988 3006 B37.2 Health Concerns Section Related Observation LastModified by Organization Detai ls LastModified Time None Recorded Concern Status LastModified by Organization Details LastModified Time None Recorded Advance Directives Directive None Recorded Payers Encounter Date Sequence Insurance Name Policy Number Policy Wing Covered Member ID Wing Member ID Guarantor Name 09/28/2021 1 [facility] [employer] (POS) Frances Jean Baptiste [id number] Frances Jean Baptiste 11/02/2021 1 [facility] [employer] (POS) Frances Jean Baptiste [id number] Frances Jean Baptiste 10/01/2022 1 [facility] [employer] [facility] (POS) Frances Jean Baptiste [id number] Frances Jean Baptiste Notes Date Note Type Note Provider Name and Address Organization Details Recorded Time 09/28/2021 text/html She is here as a new patient for annual exam. Menopause age 43, nulligravid, single, never smoker, presently not sexually active. Has moderate night sweats some nights but not others. Jessika Mccloud MD [address], [place], [address], [place] - [facility], 09/28/2021 13:22:03 11/02/2021 text/html She is here for BRCA testing, she has a strong family history of breast cancer in her paternal aunt and also 2 paternal first cousins. Jessika Mccloud MD [address], [place], [address], [place] - [facility], 11/02/2021 10:50:52 10/01/2022 text/html She is here for annual, doing well.BRCA testing last year was negative. Note from 2021: She is here as a new patient for annual exam. Menopause age 43, nulligravid, single, never smoker, presently not sexually active. Has moderate night sweats some nights but not others.Discussed dietary issues for night sweats. Jessika Mccloud MD [address], [place], [address], [place] - [facility], 10/01/2022 09:54:40 OBGyn Episode No OBEpisode recorded.
== END 2024-05-07 13:40 | disposition home or self-care (01) ==
PROVIDERS: PCP Internal Medicine; Visit Provider Internal Medicine
DX: M31.6 Other giant cell arteritis (principal); I10 Essential (primary) hypertension; F41.9 Anxiety disorder, unspecified

== ENCOUNTER → 2024-05-07 12:32 | Outpatient (BNVA) | payer OTHER, SELFPAY | PROVIDERS: PCP Internal Medicine; Visit Provider Internal Medicine | DX: M31.6 Other giant cell arteritis (principal); I10 Essential (primary) hypertension; F41.9 Anxiety disorder, unspecified; Z79.899 Other long term (current) drug therapy | CPT/HCPCS: 96127 ==

== ENCOUNTER 2024-05-13 09:30 | Outpatient (AMB) | payer OTHER, SELFPAY ==
--- NOTE | 2024-05-13 09:34 | MHC.OFFVIS ---
Vital Signs 05/13/24 09:39 Height 5 ft 6.38 in Weight 218 lb 11.177 oz BMI 34.9 BP 102/66 Blood Pressure Location Rt brachial Position Sitting Pulse 78 Pulse Source Pulse Oximeter Intake Visit Reasons: Osteoporosis/ want's to discuss labs Intake Note: Patient present today for Osteoporosis and wants to further discuss treatment options. 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: No Accompanied by: Self / Same As Patient Allergies phenytoin [From Dilantin] Allergy (Severe, Verified 05/13/24 09:40) rash amoxicillin Allergy (Intermediate, Verified 05/13/24 09:40) rash Medication List - Last Reconciled 05/13/24 by Bud Lorenzo MD aspirin 81 mg PO DAILY Bacillus coagulans-inulin 1 billion-250 cell-mg caps PO calcium citrate-vitamin D3 315 mg-6.25 mcg (250 unit) 1 tab PO BID ergocalciferol (vitamin D2) 1,250 mcg PO QWEEK erythromycin 0.5 inches ophthalmic-Right QID fluocinonide 0.05% mL topical BID PRN hydrocortisone 2.5% appl topical ketoconazole 2% 1 appl topical 2XW PRN lisinopril 20 mg PO DAILY 90 days lorazepam 0.5 mg PO BID PRN omeprazole 20 mg PO DAILY prednisone 10 mg PO DIRECTED sertraline 100 mg PO DAILY 90 days Zepbound (tirzepatide (weight loss)) 2.5 mg (0.5 mL) subcut QWEEK NS HPI Comments Details: 59 YO Female with PMHx giant cell arteritis is seen in consultation at the request of PCP for low bone mass First diagnosed in 3-4 wks ago. On steroid taper Not Received treatment in the past No history of pathologic fracture or ONJ. Has severral servings of dietary calcium per day in the form of cheese , milk . Takes Calcium supplement 630 mg daily in divided doses. Takes 500 IU of Vitamin D daily since August 2023 and 58717 IU of ergo 2 mos a go Uses PPI, -anticoagulant,- antiepileptic but uses glucocorticoid medication. 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 UTD on dental cleanings and sees dentist every 6 months. No planned upcoming dental work or extractions. Previous tabacco but stopped 4-5 yrs ago DXA dated 12/04/2023 :FINDINGS: LEFT FEMUR, NECK: BMD 0.817 g/cm2, Z-score -1.0, T-score -1.6, osteopenia. LEFT FEMUR, TOTAL: BMD 0.949 g/cm2, Z-score -0.3, T-score -0.5, normal. AP SPINE L1-L4: BMD 1.117 g/cm2, Z-score -0.4, T-score -0.5, normal. IDENTIFIED RISK FACTORS: Recurrent falls, menopause, anticonvulsant, glucocorticoids. HISTORY OF FRACTURE: None listed. MEDICATIONS: Calcium supplements or multivitamin, vitamin D. MM/XR DEXA axial skeleton IMPRESSION: 1. DIAGNOSIS: Osteopenia based on the lowest T-score value of -1.6 in the femoral neck applying World Health Organization criteria. Labs: [facility] Medical History History of sleep apnea History of hiatal hernia Surgical History History of uvulectomy History of tonsillectomy History of cholecystectomy History of appendectomy History of bilateral breast reduction surgery Family History Mother Substance abuse Father Bladder cancer Brother Substance abuse Brother Substance abuse Sister Substance abuse Social History Housing: Condominium Alcohol intake: current Patient Tobacco Use Status: Former Tobacco user Cigarettes Per Day: 10 e-Cigarette/Vaping Use: Never Used Second Hand Smoke Exposure: No service: No Current occupational status: employed Current occupational exposures/hazards: No Cognitive needs: No Hearing needs: No Vision needs: Yes Physical Exam Vital Signs: Last Vital Signs BP 102/66 05/13/24 09:39 BMI result Body Mass Index 34.9 Assessment & Plan Assessment & Plan (1) Osteopenia: Code(s): M85.80 - Other specified disorders of bone density and structure, unspecified site Category: Medical Plan: This is a 59-year-old white female with a history of low bone mass in the setting of giant cell arteritis and steroid use. Secondary causes of ruled out Plan is to ensure 1200 mg of calcium intake and replete vitamin-D levels . After long discussion with the patient considering the lengthy exposure to steroids and the risk for fracture, we opted to go with a dose of Reclast 5 mg which would be given the next several months. She will follow up with Rheumatology as well. One patient's about side effects of Reclast including but not limited to atypical femur fracture as well as osteonecrosis of the jaw Coding Level of Care Code Est Pt Level 3 (77860) Diagnoses Osteopenia M85.80
[2024-05-13 09:39] VITALS: BP 102/66; PULSE 78; BMI 34.9
== END 2024-05-13 09:58 | disposition home or self-care (01) ==
PROVIDERS: PCP Internal Medicine; Visit Provider Internal Medicine Endocrinology, Diabetes & Metabolism
DX: M85.80 Other specified disorders of bone density and structure, unspecified site (principal)
CPT/HCPCS: 99213

== ENCOUNTER → 2024-05-13 09:30 | Outpatient (BNVA) | payer OTHER, SELFPAY | PROVIDERS: PCP Internal Medicine; Visit Provider Internal Medicine Endocrinology, Diabetes & Metabolism ==

== ENCOUNTER 2024-05-26 14:29 | Outpatient (REF) | payer OTHER, SELFPAY ==
--- OUTSIDE RECORDS SUMMARY | 2024-05-26 15:24 | XMS_ITS | Data Portability ---
Author Organization [place] - [facility],, JESSIKA MCCLOUD MD Address [address] [facility] [address] [place] [address] Care Team Providers Care Demurrage Worker Name Role Phone SÁNCHEZ BELL Primary Care Provider [phone] Assessment No assessment recorded. Plan of Treatment Reminders Order Date Submit Date Provider Last Modified By Organization Details Last Modified Time Details Appointments None recorded. Lab pap test, thinprep, cervical 2021 022 harrison [facility], Cytopathology Service, [address] [place], [address], 2 08:05:47 fecal occult blood, stool 2021 022 [email or web address] 1 In-Office Order, Internal Use Only DO Not Attach Compendium DO Not Attach Compendium, Do Not Delete/merge, [id number] 2 13:20:41 brca (1+2) mutation analysis, blood or tissue 2021 022 [email or web address] [facility], [address] [place] [address], [address], 2 08:58:15 pap test, thinprep, cervical 2022 023 harrison [facility], [facility] [place], [address], 3 07:46:03 fecal occult blood, stool 2022 023 [email or web address] 1 In-Office Order, Internal Use Only DO Not Attach Compendium DO Not Attach Compendium, Do Not Delete/merge, [id number] 3 09:52:32 Referral None recorded. Procedures None recorded. Surgeries None recorded. Imaging MAMMO, screening , digital, bilateral 2021 022 [email or web address] [facility] ([facility]), [address] [facility], [place], [address], 4 07:28:47 MAMMO, screening , digital, bilateral - Breast Aspiratio n and/or Biopsy if needed [email or web address] [place] [address] (Imaging), [address] [facility], [place], [address], 4 07:48:34 Medication Orders nystatin 100,000 unit/gram topical powder 2022 023 [id number], [address] [facility] [place], [address], 3 09:53:24 Patient TargetsNo targets recorded. Patient Instructions Encounter Date Encounter Id Patient Instructions Last Modified By Organization Details Last Modified Time 09/28/2021 [id number] learning about healthy weight niru Not available [...] breast. [email or web address] Not available 09/28/2021 13:21:26 11/02/2021 [id number] She is here for BRCA testing, she [...] 375 dollars, and that the testing company ([facility]) will contact her if the co pay [...] ?50 minutes Not available 11/02/2021 10:50:36 10/01/2022 [id number] learning about healthy weight Not available 10/01/2022 [...] Detail LastModifiedTime 09/29/19 22 09/28/2021 PAP1C ASE [email or web address] ThinP rep Pap, Image d: NEGAT RAJ FOR SQUAM OUS INTRA EPITH ELIAL LESLINH Yoon AND MOHINI BABIN . Indigo Lima [...] ts. [Z12. 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 Satis facto ry for evalu ation [...] 19 , lps 09-28 neg Phone #: [phone], On-Ca ll Patho logis t: [id number] Not Available [facility] [address] [place], [address], 10/18/2022 09:17:01 10/02/19 23 10/01/2022 fecal occul t blood , stool Occult Blood negati ve Not Available In-Office Order Internal Use Only DO Not Attach Compendium DO Not Attach Compendium, Do Not Delete/merge, [id number] 10/01/2022 08:09:15 Result Notes None recorded. Problems Name Problem SNOMED Code Status Onset Date Resolution Date Notes Provider Name and Address Organization Details Recorded Time Family history of breast cancer 178061931 Active 2021 Jessika Mccloud MD [address], [place], [address] , [place] - [facility], 2 10:50:04 Candidiasis of skin 97516004 Active 2022 Jessika Mccloud MD [address] [facility],[address], [place], [address], [place] - [facility], 3 09:52:43 Problem Notes None recorded. Procedures Surgical History Date Name Laterality Status Provider Name and Address Organization Details Recorded Time 12/27/19 22 Most Recent Mammogram completed Kelly Meczywor [place] - [facility], 10/01/2022 08:08:06 10/09/19 13 cholecystectomy completed Kelly Meczywor [place] - [facility], 09/28/2021 08:26:25 09/18/19 07 Hernia repair w/mesh completed Kelly Meczywor [place] - [facility], 09/28/2021 08:26:00 09/15/18 96 Breast reduction completed Kelly Meczywor [place] - [facility], 09/28/2021 08:25:48 09/15/18 69 procedure on kidney completed Kelly Meczywor [place] - [facility], 09/28/2021 08:25:34 Imaging Results None recorded. Procedure Notes None recorded. Medical Equipment None Reported. Allergies Allergen ID Allergen Name Allergen Category Reaction Reaction Severity Criticality Documentation Date Start Date Code Code System Note Provider Name and Address Organization Details Recorded Time 69407 Dilantin medicatio n hives Not available Not available 09/28/2021 0 RxNorm Kelly Meczywor null, [place] - [facility], 2 08:13:51 76557 amoxicill in medicatio n hives Not available Not available 09/28/2021 723 RxNorm Kelly Meczywor null, [place] - [facility], 2 08:14:04 Medications Name Sig Start Date [...] Updated DateTime 2 170.18 cm 35 kg/m2 691674. 82 g 98.1 [degF] 67 /min 131 mm[Hg] 76 mm[Hg] Kelly Castillo [facility], 2 08:12:08 Date Recorded Body height Body mass index (BMI) Body weight Heart rate Body temperature Systolic blood pressure Diastolic blood pressure Provider Name and Address Organization Details Last Updated DateTime 2 170.18 cm 34.9 kg/m2 612692. 1 g 97.2 /min 69 [degF] 128 mm[Hg] 73 mm[Hg] Cristina Castillo [facility], 2 08:35:35 Date Recorded Body height Body mass index (BMI) Body weight Body temperature Heart rate Systolic blood pressure Diastolic blood pressure Provider Name and Address Organization Details Last Updated DateTime 3 165.1 cm 37.8 kg/m2 475123. 19 g 97.2 [degF] 91 /min 132 mm[Hg] 72 mm[Hg] Kelly Castillo [facility], 3 08:04:31 Social History Question Answer Notes LastModified by Organizat ion Details LastModified Time Tobacco Smoking Status Never Smoker [place] [facility], 09/28/2021 08:24:27 What Is Your Level Of [...] Or The Highest Degree You Have Received? [id number] Information not available 09/28/2021 Who Is Your [...] Anxious, Or Unable To Sleep At Night)? [id number] Information not available 09/28/2021 Do You Use [...] for MyRisk panel N Autoimmune Condition N Thyroid Problems N Kidney or Bladder Problems Y GI Problems Y Lung Disease N Depression Y Defects or Inherited Disease N Anemia N History of Ovarian Cancer N History of Breast Cancer N HAROLDO [...] virus, quadrivalent, preservative 1 [place]A [facility], 09/28/2021 08:16:54 Influenza, split virus, quadrivalent, preservative [...] SNOMED-CT Code Diagnosis ICD10 Code Diagnosis Note [id number] MD JESSIKA Villeda MD [address] [facility] [address] 09/28/2021 08:05:43 09/28/2021 14:45:35 Specialized medical examination 86317733 Z01.419 Screening for malignant neoplasm of rectum 953495855 Z12.12 Screening mammography 24 570149 Z12.31 [id number] MD JESSIKA Villeda MD [address] [facility] [address] 11/02/2021 08:33:46 11/02/2021 12:05:45 Family history of breast cancer 459775605 Z80.3 [id number] MD JESSIKA Villeda MD [address] [facility], [place] [address] 10/01/2022 07:58:47 10/01/2022 10:02:02 Specialized medical examination 60986914 Z01.419 Screening for malignant neoplasm of rectum 940669833 Z12.12 Screening mammography 24 697917 Z12.31 Candidiasis of skin 4988 3006 B37.2 Health Concerns Section Related Observation LastModified by Organization Detai ls LastModified Time None Recorded Concern Status LastModified by Organization Details LastModified Time None Recorded Advance Directives Directive None Recorded Payers Encounter Date Sequence Insurance Name Policy Number Policy Wing Covered Member ID Wing Member ID Guarantor Name 09/28/2021 1 [facility] [employer] (POS) Frances Jean Baptiste [id number] Frances Jean Baptiste 11/02/2021 1 [facility] [employer] (POS) Frances Jean Baptiste [id number] Frances Jean Baptiste 10/01/2022 1 [facility] [employer] [facility] (POS) Frances Jean Baptiste [id number] Frances Jean Baptiste Notes Date Note Type Note Provider Name and Address Organization Details Recorded Time 09/28/2021 text/html She is here as a new patient for annual exam. Menopause age 43, nulligravid, single, never smoker, presently not sexually active. Has moderate night sweats some nights but not others. Jessika Mccloud MD [address], [place], [address], [place] - [facility], 09/28/2021 13:22:03 11/02/2021 text/html She is here for BRCA testing, she has a strong family history of breast cancer in her paternal aunt and also 2 paternal first cousins. Jessika Mccloud MD [address], [place], [address], [place] - [facility], 11/02/2021 10:50:52 10/01/2022 text/html She is here for annual, doing well.BRCA testing last year was negative. Note from 2021: She is here as a new patient for annual exam. Menopause age 43, nulligravid, single, never smoker, presently not sexually active. Has moderate night sweats some nights but not others.Discussed dietary issues for night sweats. Jessika Mccloud MD [address], [place], [address], [place] - [facility], 10/01/2022 09:54:40 OBGyn Episode No OBEpisode recorded.
--- OUTSIDE RECORDS SUMMARY | 2024-05-26 15:24 | XMS_ITS | Clinical Summary ---
Author Organization [facility] Address [address] [place] [address] Care Team Providers Care Sec Reporting Consultant Name Role Phone Amelie Carr Primary Care Provider [phone] Allergies Active Allergy Reactions Criticality Noted Date [...] artery occlusion) 4 Optic nerve swelling 08/15/2023 Family History Medical History Relation Name Comments [...] Description 08/05/2024 10:30 AM EDT Research Encounter [address] [address] Sandy Cueto MD [address] [place] [address] Health Maintenance Due Date Last Done Comments Cervical Cancer Screening 1965 Cologuard 1965 Colon Cancer Screening 1965 Colonoscopy 1965 FOBT / Fit Test 1965 HIV Screening 1965 HPV and Pap Smear 1965 Pap Smear [address] Lung Cancer Screening (Baseline) 2013 Mammogram 06/23/2022 06/23/2020, 06/13, 11/27/2018 COVID-19 Vaccine ( season) 2023 08/19/2023, 04/26/2023, 01/16/2023, Additional history exists Influenza Vaccine (#1) 2023 3, 01/14/2022, 01/15/2021, Additional history exists Alcohol/Substance Use [...] complete this topic Procedures * Due to [place] PrivacyProtector law, this organization might not be sharing negative HIV tests. Procedure Name Priority Date/Time Associated Diagnosis Comments COMPREHENSIVE METABOLIC PANEL Routine 08/16/2023 6:31 AM EDT from Last 3 Months or Most Recently Relevant to Health Maintenance Results * Due to [place] PrivacyProtector law, this organization might not be sharing negative HIV tests. * Comprehensive Metabolic Panel (08/16/2023 6:31 AM EDT) NA 144 135 - 145 mmol/L 08/16/2023 8:05 AM EDT [facility] K 4.3 3.5 - 5.3 mmol/L 08/16/2023 8:05 AM EDT [facility] Cl 108 97 - 110 mmol/L 08/16/2023 8:05 AM EDT [facility] CO2 29 24 - 32 mmol/L 08/16/2023 8:05 AM EDT [facility] Anion Gap 7 5 - 15 08/16/2023 8:05 AM EDT [facility] Glucose 86 70 - 99 mg/dL 08/16/2023 8:05 AM [facility] Creatinine 0.73 0.50 - 1.20 mg/dL 08/16/2023 8:05 AM [facility] Calcium 8.9 8.7 - 10.7 mg/dL 08/16/2023 8:05 AM [facility] Total Protein 6.5 6.0 - 8.0 g/dL 08/16/2023 8:05 AM [facility] Albumin 3.8 3.5 - 4.8 g/dL 08/16/2023 8:05 AM [facility] Bilirubin, Total 0.4 0.3 - 1.2 mg/dL 08/16/2023 8:05 AM [facility] Alkaline Phosphatase 105 30 - 115 U/L 08/16/2023 8:05 AM [facility] AST 18 10 - 40 U/L 08/16/2023 8:05 AM [facility] ALT 14 10 - 40 U/L 08/16/2023 8:05 AM [facility] BUN 13 7 - 23 mg/dL 08/16/2023 8:05 AM [facility] eGFR >90 >=60 mL/min/1. 73m2 08/16/2023 8:05 AM [facility] Comment:The estimated glomer ular [...] MD LAB BLOOD ORDERABLES Final Resul t [facility] [address] [place] [address], from Last 3 Months or Most Recently Relevant to Health [place] [address] HSNO/FREE CARE Advance Directives Documents on File Type Date Recorded Patient Business Unit Manager Expl anation Health Care Proxy 08/19/2023 8:51 AM 2023 * Full Code (Latest Code Status on File) Date Activated Date Inactivated Comments 08/15/2023 12:07 PM 08/17/2023 7:17 PM Healthcare Agents on File Name Relationship Healthcare Agent Relationshi p Communication Ana Jean Baptiste Sister Health Care Agent Care Teams Sec Reporting Consultant Relationship Specialty Start Date End Date Amelie Carr [address] [place] [address] PCP - General Internal Medicine 08/13/23
--- OUTSIDE RECORDS SUMMARY | 2024-05-26 15:24 | XMS_ITS | Referral Summary ---
Author Organization [facility] Address [address] [place] [address] Care Team Providers Care Clinical Trials Systems Administrator Name Role Phone Amelie Carr Primary Care Provider [phone] Allergies Active Allergy Reactions Criticality Noted Date [...] Description 08/05/2024 10:30 AM EDT Research Encounter [address] [address] Sandy Cueto MD [address] [place] [address] Procedures * Due to [facility] law, this organization might not be sharing negative HIV tests. Procedure Name Priority Date/Time Associated Diagnosis Comments COMPREHENSIVE METABOLIC PANEL Routine 08/16/2023 6:31 AM EDT from Last 3 Months or Most Recently Relevant to Health Maintenance Results * Due to [facility] law, this organization might not be sharing negative HIV tests. * Comprehensive Metabolic Panel (08/16/2023 6:31 AM EDT) NA 144 135 - 145 mmol/L 08/16/2023 8:05 AM EDT [facility] K 4.3 3.5 - 5.3 mmol/L 08/16/2023 8:05 AM EDT [facility] Cl 108 97 - 110 mmol/L 08/16/2023 8:05 AM EDT [facility] CO2 29 24 - 32 mmol/L 08/16/2023 8:05 AM [facility] Anion Gap 7 5 - 15 08/16/2023 8:05 AM [facility] Glucose 86 70 - 99 mg/dL 08/16/2023 8:05 AM [facility] Creatinine 0.73 0.50 - 1.20 mg/dL 08/16/2023 8:05 AM [facility] Calcium 8.9 8.7 - 10.7 mg/dL 08/16/2023 8:05 AM [facility] Total Protein 6.5 6.0 - 8.0 g/dL 08/16/2023 8:05 AM [facility] Albumin 3.8 3.5 - 4.8 g/dL 08/16/2023 8:05 AM [facility] Bilirubin, Total 0.4 0.3 - 1.2 mg/dL 08/16/2023 8:05 AM [facility] Alkaline Phosphatase 105 30 - 115 U/L 08/16/2023 8:05 AM [facility] AST 18 10 - 40 U/L 08/16/2023 8:05 AM [facility] ALT 14 10 - 40 U/L 08/16/2023 8:05 AM [facility] BUN 13 7 - 23 mg/dL 08/16/2023 8:05 AM [facility] eGFR >90 >=60 mL/min/1. 73m2 08/16/2023 8:05 AM [facility] Comment:The estimated glomer ular filtration rate (eGFR) is calculated using a new formula developed by the NKF-ASN task force to eliminate race-based correction factors. The new formula uses serum/plasma creatinine, age, and gender to determine eGFR. A value below 60mls/min might indicate kidney disease and will be flagged. For additional information, see Aggarwal et al, Am J Kidney Dis. 2021;79(2):268- 288, A Unifying Approach for GFR estimation: Recommendations of the NKF-ASN Task Force on Reassessing the Inclusion of Race in Diagnosing Kidney Disease . Blood Structure of peripheral vein / Unknown Venipuncture / Unknown 08/16/2023 6:31 AM EDT 08/16/2023 7:13 AM EDT us Prakash Reilly MD LAB BLOOD ORDERABLES Final Resul t [facility] [address] [place] [address], from Last 3 Months or Most Recently Relevant to Health Maintenance Insurance HSNO/FREE CARE Advance Directives Documents on File Type Date Recorded Patient Grain Elevator Agent Expl anation Health Care Proxy 08/19/2023 8:51 AM 2023 * Full Code (Latest Code Status on File) Date Activated Date Inactivated Comments 08/15/2023 12:07 PM 08/17/2023 7:17 PM Healthcare Agents on File Name Relationship Healthcare Agent Relationshi p Communication Ana Jean Baptiste Sister Health Care Agent Care Teams Clinical Trials Systems Administrator Relationship Specialty Start Date End Date Amelie Carr [address] [place] [address] PCP - General Internal Medicine 08/13/23
[2024-05-26 16:45] LABS: Anion Gap 11 (12-20); Blood Urea Nitrogen 16 mg/dL (9-16); Calcium 9.2 mg/dL (8.4-10.2); Carbon Dioxide 31 mmol/L (22-29); Chloride 104 mmol/L (96-108); Estimated Glomerular Filt Rate > 60; Glucose Random 95 mg/dL (60-115); Potassium 4.1 mmol/L (3.3-5.1); Sodium 142 mmol/L (135-145)
== END 2024-05-26 14:30 | disposition home or self-care (01) ==
LOC: HO.HMGCLDS 14:29
PROVIDERS: PCP Internal Medicine; Visit Provider Internal Medicine Endocrinology, Diabetes & Metabolism
DX: M85.80 Other specified disorders of bone density and structure, unspecified site (principal)
CPT/HCPCS: 36415; 80048

== ENCOUNTER 2024-06-03 09:04 | Outpatient (RCR) | payer OTHER, SELFPAY ==
[2024-06-03 09:32] VITALS: BP 111/63; PULSE 83; RESP 16; TEMP 35.9; O2SAT 95
[2024-06-03] MEDS: Zoledronic Acid/Mannitol-Water 5 MG/100 ML PGGYBK.BTL IV (09:39)
== END 2024-06-03 09:59 | disposition home or self-care (01) ==
LOC: HO.INF 09:04
PROVIDERS: Visit Provider Internal Medicine Endocrinology, Diabetes & Metabolism
DX: M85.80 Other specified disorders of bone density and structure, unspecified site (principal)
CPT/HCPCS: 96374; J3489

== ENCOUNTER 2024-07-03 07:45 | Outpatient (REF) | payer OTHER, SELFPAY | END 2024-07-03 07:46 | disposition home or self-care (01) | LOC: HO.MAMMO 07:45 | PROVIDERS: PCP Internal Medicine; Visit Provider Internal Medicine | DX: Z12.31 Encounter for screening mammogram for malignant neoplasm of breast (principal) | CPT/HCPCS: 77063; 77067 ==

== ENCOUNTER → 2024-07-03 08:00 | Outpatient (BNV) | payer OTHER, SELFPAY | PROVIDERS: PCP Internal Medicine; Visit Provider Internal Medicine | DX: Z12.31 Encounter for screening mammogram for malignant neoplasm of breast (principal) | CPT/HCPCS: 77063; 77067 ==

== ENCOUNTER 2024-07-28 11:48 | Outpatient (AMB) | payer OTHER, SELFPAY ==
--- NOTE | 2024-07-28 11:49 | A.OFFPC_ITS ---
Vital Signs 07/28/24 11:50 Height 5 ft 6 in Weight 215 lb BMI 34.7 BP 90/56 L Blood Pressure Location Rt brachial Position Sitting Respiration 18 Pulse 73 Pulse Source Pulse Oximeter Temp 98.8 F Temp Source Oral Pulse Oximetry (%) 94 Oxygen Delivery Method Room Air Intake Visit Reasons: Annual PE Intake Note: Pt is here today for PE. Allergies phenytoin [From Dilantin] Allergy (Severe, Verified 07/28/24 12:06) rash amoxicillin Allergy (Intermediate, Verified 07/28/24 12:06) rash Medication List - Last Reconciled 07/28/24 by Amelie Carr MD aspirin 81 mg PO DAILY Bacillus coagulans-inulin 1 billion-250 cell-mg caps PO calcium citrate-vitamin D3 315 mg-6.25 mcg (250 unit) 1 tab PO BID ergocalciferol (vitamin D2) 1,250 mcg PO QWEEK erythromycin 0.5 inches ophthalmic-Right QID fluocinonide 0.05% mL topical BID PRN hydrocortisone 2.5% appl topical ketoconazole 2% 1 appl topical 2XW PRN lisinopril 20 mg PO DAILY 90 days lorazepam 0.5 mg PO QID PRN omeprazole 20 mg PO DAILY prednisone 2 mg PO DIRECTED sertraline 100 mg PO DAILY 90 days Zepbound (tirzepatide (weight loss)) 5 mg (0.5 mL) subcut QWEEK NS zoledronic qtum-lvoqslbh-bundw 5 mg/100 mL (Reclast) ea IV Tobacco use date assessed: 07/28/24 Dental Screening Dental Screen Date: 05/07/24 HPI Annual PE HPI Details Pt presents for PE. 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 and has been tapering prednisone dose now on 2 mg a day for 1 month followed by 1 mg a day for next month. Patient had Reclast infusion for osteoporosis prevention in May. She has been taking Zepbound for weight loss and lost 15 lb since April. Patient will be starting Zepbound 5 mg weekly. [facility] Medical History (Updated 07/28/24 @ 13:18 by Amelie Carr MD) History of sleep apnea History of hiatal hernia Surgical History History of uvulectomy History of tonsillectomy History of cholecystectomy History of appendectomy History of bilateral breast reduction surgery Family History Mother Substance abuse Father Bladder cancer Brother Substance abuse Brother Substance abuse Sister Substance abuse Social History Housing: Condominium Alcohol intake: current Patient Tobacco Use Status: Former Tobacco user Cigarettes Per Day: 10 e-Cigarette/Vaping Use: Never Used Second Hand Smoke Exposure: No service: No Current occupational status: employed Current occupational exposures/hazards: No Cognitive needs: No Hearing needs: No Vision needs: Yes Questionnaire Thrive Questionnaire Date Thrive assessed: 05/07/24 AUDIT C Alcohol Use Questionnaire (AUDIT-C) 1. How often do you have a drink containing alcohol?: Never 3. How often do you have six or more drinks on one occasion?: Never Total Score: 0 JODIE-7 AMB Questionnaire JODIE-7 Date JODIE - 7 assessed: 05/07/24 Source: Developed by Drs. Bud Riley, Paulette Ruiz, Aric Ospina and colleagues, with an educational randall from [employer]. Review of Systems Const All systems reviewed & are unremarkable except as noted in HPI and below Reports no additional complaints Eyes Reports no additional complaints ENT Reports no additional complaints Card Reports no additional complaints Resp Reports no additional complaints GI Reports no additional complaints Reports no additional complaints Physical exam (Primary Care) Vital Signs: Last Vital Signs Temp 98.8 F 07/28/24 11:50 Pulse 73 07/28/24 11:50 Resp 18 07/28/24 11:50 BP 90/56 L 07/28/24 11:50 Pulse Ox 94 07/28/24 11:50 Oxygen Delivery Method Room Air 07/28/24 11:50 BMI result Body Mass Index 34.7 Tobacco/Smoking Status: Tobacco use Status Tobacco use date assessed 07/28/24 07/28/24 12:20 Patient Tobacco Use Status Former Tobacco user 07/28/24 11:51 e-Cigarette/Vaping Use Never Used 07/28/24 11:51 Thrive Assessment: Date of Thrive Assessment Date Thrive assessed 05/07/24 07/28/24 11:51 Const General: no acute distress HENMT Head: Yes normal to inspection Ears: hearing grossly normal bilaterally Mouth: Normal oral and palatal mucosa present Eyes General: appearance normal, both eyes and all related structures Neck Neck: Yes no lymphadenopathy and Yes supple Resp Effort & Inspection: normal respiratory effort Auscultation: clear to auscultation bilaterally Cardio Rhythm: regular rhythm Heart sounds: S1 normal heart sound present and S2 normal heart sound present GI Inspection: Yes normal to inspection Palpation (GI): Soft to palpation Percussion: Yes normal to percussion Auscultation: normal bowel sounds Coding Level of Care Code Est Pt Prev Care 40-64y(31852) Diagnoses Essential hypertension I10 Adult general medical exam Z00.00 Hyperlipidemia E78.5 Anxiety F41.9 Giant cell arteritis M31.6 History of colon polyps Z86.010 Assessment & Plan Assessment & Plan (1) Essential hypertension: Code(s): I10 - Essential (primary) hypertension Category: Medical Plan: Blood pressure is low today, lisinopril will be decreased to 5 mg a day follow- up in 2 months (2) Adult general medical exam: Code(s): Z00.00 - Encounter for general adult medical examination without abnormal findings Category: Medical Plan: Well-balanced diet regular physical activity discussed with the patient she is up-to-date with the Pap smear in 2022 mammogram and will be referred to GI follow-up on colonoscopy (3) Hyperlipidemia: Comment: Lipitor was stopped because of elevated LFTs at [facility] 08/2023 Code(s): E78.5 - Hyperlipidemia, unspecified Category: Medical Plan: Low-cholesterol diet discussed with the patient return for fasting blood work including lipid profile (4) Anxiety: Code(s): F41.9 - Anxiety disorder, unspecified Category: Medical Plan: Continue Zoloft (5) Giant cell arteritis: Comment: dxd at [facility] , elevated ESR but negative TA bx, negative temporary artery ultrasound and PET scan, started on Prednisone 09/05, R eye vision loss, Code(s): M31.6 - Other giant cell arteritis Category: Medical Plan: Follow-up with rheumatology on tapering dose of prednisone (6) History of colon polyps: Comment: last colonoscopy 2021 , repeat 3-5 yrs , refer to Dr. Cain 07/2024 Code(s): Z86.010 - Personal history of colon polyps Category: Medical Plan: REFERRED TO GI Orders: Orders Complete Blood Count Auto Diff Today E78.5 - Hyperlipidemia, unspecified, I10 - Essential (primary) hypertension, Z00.00 - Encounter for general adult medical examination without abnormal findings TSH reflex Free T4 Today E78.5 - Hyperlipidemia, unspecified, I10 - Essential (primary) hypertension, Z00.00 - Encounter for general adult medical examination without abnormal findings Vitamin D 25-OH Total Today E78.5 - Hyperlipidemia, unspecified, I10 - Essential (primary) hypertension, Z00.00 - Encounter for general adult medical examination without abnormal findings Comprehensive [place]. Panel Fast Today E78.5 - Hyperlipidemia, unspecified, I10 - Essential (primary) hypertension, Z00.00 - Encounter for general adult medical examination without abnormal findings Lipid Panel Today E78.5 - Hyperlipidemia, unspecified, I10 - Essential (primary) hypertension, Z00.00 - Encounter for general adult medical examination without abnormal findings Referrals Gastroenterology Referral Z00.00 - Encounter for general adult medical examination without abnormal findings Medications: New lisinopril 5 mg PO DAILY 90 tabs 0RF Refilled sertraline 100 mg PO DAILY 90 days 90 tabs 3RF Discontinued lisinopril Discontinued Reason: Doctor's Order 20 mg PO DAILY 90 days 90 tabs 3RF
[2024-07-28 11:50] VITALS: BP 90/56; PULSE 73; RESP 18; TEMP 37.1; O2SAT 94; BMI 34.7
--- OUTSIDE RECORDS SUMMARY | 2024-07-28 14:36 | XMS_ITS | Clinical Summary ---
Author Organization [facility] Address [address] [place] [address] Care Team Providers Care Quarter Backer Name Role Phone Amelie Carr Primary Care Provider Allergies Active Allergy Reactions Criticality Noted Date [...] 08/05/2024 10:30 AM EDT Research Encounter [address] [address] Sandy Cueto MD [address] [place] [address] Health Maintenance Due Date Last Done Comments Cervical Cancer Screening 1965 Cologuard 1965 Colon Cancer Screening 1965 Colonoscopy 1965 FOBT / Fit Test 1965 HIV Screening 1965 HPV and Pap Smear 1965 Pap Smear [address] Lung Cancer Screening (Baseline) 2013 Pneumococcal Vaccine: 50+ Years (1 of 1 - PCV) 2013 Mammogram 06/23/2022 06/23/2020, 06/13, 11/27/2018 COVID-19 Vaccine ( season) 2023 08/19/2023, 04/26/2023, 01/16/2023, Additional history exists Alcohol/Substance Use Screening 04/15/2024 Depression Screening and Follow-Up 04/15/2024 Social Drivers of Health Annual Screening 04/15/2024 Basic Metabolic Panel 09/10/2024 09/11/2023 , 09/10/2023, 09/09/2023, Additional history exists Influenza Vaccine (Season Ended) 2024 01/16/2023, 01/14/2022, 01/15/2021, Additional history exists DTaP,Tdap,and Td Vaccines (3 - Td or Tdap) 04/26/2033 04/26/2023, 09/21/2010, 07/22/2003 Zoster Vaccines Completed 04/19/2023, 01/14/2022 RSV Vaccine (60+ years old and patients) Completed 08/19/2023 Hepatitis C Screening Completed 09/07/2023 Hepatitis B Vaccines Aged Out No long er eligible based on patient's age to complete this topic Procedures * Due to [place] law, this organization might not be sharing negative HIV tests. Procedure Name Priority Date/Time Associated Diagnosis Comments COMPREHENSIVE METABOLIC PANEL Routine 08/16/2023 6:31 AM EDT from Last 3 Months or Most Recently Relevant to Health Maintenance Results * Due to [place] [employer] law, this organization might not be sharing negative HIV tests. * Comprehensive Metabolic Panel (08/16/2023 6:31 AM EDT) NA 144 135 - 145 mmol/L 08/16/2023 8:05 AM EDT [facility] K 4.3 3.5 - 5.3 mmol/L 08/16/2023 8:05 AM EDT [facility] Cl 108 97 - 110 mmol/L 08/16/2023 8:05 AM EDT [facility] CO2 29 24 - 32 mmol/L 08/16/2023 8:05 AM EDT [facility] Anion Gap 7 5 - 15 08/16/2023 8:05 AM EDT [facility] Glucose 86 70 - 99 mg/dL 08/16/2023 8:05 AM [facility] Creatinine 0.73 0.50 - 1.20 mg/dL 08/16/2023 8:05 AM [facility] Calcium 8.9 8.7 - 10.7 mg/dL 08/16/2023 8:05 AM [facility] Total Protein 6.5 6.0 - 8.0 g/dL 08/16/2023 8:05 AM [facility] Albumin 3.8 3.5 - 4.8 g/dL 08/16/2023 8:05 AM [facility] Bilirubin, Total 0.4 0.3 - 1.2 mg/dL 08/16/2023 8:05 AM [facility] Alkaline Phosphatase 105 30 - 115 U/L 08/16/2023 8:05 AM [facility] AST 18 10 - 40 U/L 08/16/2023 8:05 AM [facility] ALT 14 10 - 40 U/L 08/16/2023 8:05 AM [facility] BUN 13 7 - 23 mg/dL 08/16/2023 8:05 AM [facility] eGFR >90 >=60 mL/min/1. 73m2 08/16/2023 8:05 AM [facility] Comment:The estimated glomer ular filtration rate (eGFR) is calculated using a new formula developed by the NKF-ASN task force to eliminate race-based correction factors. The new formula uses serum/plasma creatinine, age, and gender to determine eGFR. A value below 60mls/min might indicate kidney disease and will be flagged. For additional information, see Alessia donovan al, Am J Kidney Dis. 2021;79(2):268- 288, A Unifying Approach for GFR estimation: Recommendations of the NKF-ASN Task Force on Reassessing the Inclusion of Race in Diagnosing Kidney Disease . Blood Structure of peripheral vein / Unknown Venipuncture / Unknown 08/16/2023 6:31 AM EDT 08/16/2023 7:13 AM EDT us Prakash Reilly MD LAB BLOOD ORDERABLES Final Resul t [facility] [address] [place] [address], from Last 3 Months or Most Recently Relevant to Health Maintenance [place] [address] HSNO/FREE CARE Advance Directives Documents on File Type Date Recorded Patient [employer] Officer Expl anation Health Care Proxy 08/19/2023 8:51 AM 2023 * Full Code (Latest Code Status on File) Date Activated Date Inactivated Comments 08/15/2023 12:07 PM 08/17/2023 7:17 PM Healthcare Agents on File Name Relationship [facility] Ana tIa Sister Health Care Agent Care Teams Quarter Backer Relationship Specialty Start Date End Date Amelie Carr [address] [place] [address] PCP - General Internal Medicine 08/13/23
--- OUTSIDE RECORDS SUMMARY | 2024-07-28 14:36 | XMS_ITS | Data Portability ---
Author Organization [place] [facility],, JESSIKA MCCLOUD MD Address [address] [address] Care Team Providers Care Nurse First Assist Name Role Phone SÁNCHEZ BELL Primary Care Provider [phone] Assessment No assessment recorded. Plan of Treatment Reminders Order Date Submit Date Provider Last Modified By Organization Details Last Modified Time Details Appointments None recorded. Lab pap test, thinprep, cervical 2022 023 [email or web address] [facility] (Centralized Electronic Ordering - All Locations), Patient Can Go To The Location Of Their Choice, [id number] 3 07:46:03 fecal occult blood, stool 2022 023 [email or web address] 1 In-Office Order, Internal Use Only DO Not Attach Compendium DO Not Attach Compendium, Do Not Delete/merge, [id number] 3 09:52:32 brca (1+2) mutation analysis, blood or tissue 2021 022 [email or web address] [facility], [address] [place] [address], [address], 2 08:58:15 pap test, thinprep, cervical 2021 022 [email or web address] [facility], Cytopathology Service, [address] [place], [address], 2 08:05:47 fecal occult blood, stool 2021 022 [email or web address] 1 In-Office Order, Internal Use Only DO Not Attach Compendium DO Not Attach Compendium, Do Not Delete/merge, [id number] 2 13:20:41 Referral None recorded. Procedures None recorded. Surgeries None recorded. Imaging MAMMO, screening , digital, bilateral - Breast Aspiratio n and/or Biopsy if needed 2022 023 [email or web address] [facility] (Imaging), [address] [facility], [place], [address], 4 07:48:34 MAMMO, screening , digital, bilateral 2021 022 [facility] [address] [facility] [address], [place], [address], 4 07:28:47 Medication Orders nystatin 100,000 unit/gram topical powder 2022 023 [facility] #[id number], [address] [facility] [place], [address], 3 09:53:24 Patient TargetsNo targets recorded. Patient Instructions Encounter Date Encounter Id Patient Instructions Last Modified By Organization Details Last Modified Time 09/28/2021 [id number] learning about healthy weight niru Not available [...] breast. [email or web address] Not available 09/28/2021 13:21:26 11/02/2021 [id number] She is here for BRCA testing, she [...] 375 dollars, and that the testing company ([facility]) will contact her if the co pay [...] ?50 minutes Not available 11/02/2021 10:50:36 10/01/2022 [id number] learning about healthy weight Not available 10/01/2022 [...] Detail LastModifiedTime 09/29/19 22 09/28/2021 PAP1C ASE [email or web address] ThinP rep Pap, Image d: NEGAT RAJ FOR SQUAM OUS INTRA EPITH ELIAL SHAWN Yoon AND MOHINI BABIN . Indigo Lima [...] ts. [Z12. 4, Z01.4 19] Not Available [facility], Cytopathology Service [address] [place], [address], 10/05/2021 07:31:06 09/29/19 22 09/28/2021 fecal occul t blood , stool Occult Blood negati ve Not Available In-Office Order Internal Use Only DO Not Attach Compendium DO Not Attach Compendium, Do Not Delete/merge, [id number] 09/28/2021 08:09:06 10/02/19 23 10/01/2022 [facility] CYTOL OGY results Patie nt Name: MARION WEISS nt : 1965 (Age: 57) Lab Acces windy #: [id number] Colle ction Date: 2022 Acces windy Date: 2022 Sign Out Date: 023 Tissu e Sourc e: 1: THINP REP WELDER PAP TEST, CERVI LONNIE: Final Diagn osis: [...] d by the ThinP rep Imagi ng Syste m with manoj sorto or blaze erazo. Clini lonnie Histo ry (othe r): Z01.4 19 , lps 09-28 neg Phone #: [phone], On-Ca ll Patho logis t: [id number] Not Available [facility] (Centralized Electronic Ordering - All Locations) Patient Can Go To The Location Of Their Choice, [id number] 10/18/2022 09:17:01 10/02/19 23 10/01/2022 fecal occul t blood , stool Occult Blood negati ve Not Available In-Office Order Internal Use Only DO Not Attach Compendium DO Not Attach Compendium, Do Not Delete/merge, [id number] 10/01/2022 08:09:15 Result Notes None recorded. Problems Name Problem SNOMED Code Status Onset Date Resolution Date Notes Provider Name and Address Organization Details Recorded Time Family history of breast cancer 260098213 Active 2021 Jessika Mccloud MD [address], [place], [address] , [place] - [facility], 2 10:50:04 Candidiasis of skin 08238757 Active 2022 Jessika Mccloud MD [address], [place], [address], [place] - [facility], 3 09:52:43 Problem Notes None recorded. Procedures Surgical History Date Name Laterality Status Provider Name and Address Organization Details Recorded Time 12/27/19 22 Most Recent Mammogram completed Kelly Glasgow [place] - [facility], 10/01/2022 08:08:06 10/09/19 13 cholecystectomy completed Kelly Glasgow [place] - [facility], 09/28/2021 08:26:25 09/18/19 07 Hernia repair w/mesh completed Kelly Joanieywruddy [place] - [facility], 09/28/2021 08:26:00 09/15/18 96 Breast reduction completed Kelly Glasgow [place] - [facility], 09/28/2021 08:25:48 09/15/18 69 procedure on kidney completed Kelly Rogerswruddy [facility], 09/28/2021 08:25:34 Imaging Results None recorded. Procedure Notes None recorded. Medical Equipment None Reported. Allergies Allergen ID Allergen Name Allergen Category Reaction Reaction Severity Criticality Documentation Date Start Date Code Code System Note Provider Name and Address Organization Details Recorded Time 89997 Dilantin medicatio n hives Not available Not available 09/28/2021 0 RxNorm Kelly Meczywor jabari [place] - [facility], 2 08:13:51 92875 amoxicill in medicatio n hives Not available Not available 09/28/2021 723 RxNorm Kelly Meczywor null [place] - [facility], 2 08:14:04 Medications Name Sig Start [...] Updated DateTime 2 170.18 cm 35 kg/m2 394019. 82 g 98.1 [degF] 67 /min 131 mm[Hg] 76 mm[Hg] Kelly Castillo in [facility], 2 08:12:08 Date Recorded Body height Body mass index (BMI) Body weight Heart rate Body temperature Systolic blood pressure Diastolic blood pressure Provider Name and Address Organization Details Last Updated DateTime 2 170.18 cm 34.9 kg/m2 120298. 1 g 97.2 /min 69 [degF] 128 mm[Hg] 73 mm[Hg] Cristina Castillo in [facility], 2 08:35:35 Date Recorded Body height Body mass index (BMI) Body weight Body temperature Heart rate Systolic blood pressure Diastolic blood pressure Provider Name and Address Organization Details Last Updated DateTime 3 165.1 cm 37.8 kg/m2 391359. 19 g 97.2 [degF] 91 /min 132 mm[Hg] 72 mm[Hg] Kelly Castillo in [facility], 3 08:04:31 Social History Question Answer Notes LastModified by Organizat ion Details LastModified Time Tobacco Smoking Status Never Smoker [place] Gregory in [facility], 09/28/2021 08:24:27 What Is Your Level [...] Or The Highest Degree You Have Received? [id number] Information not available 09/28/2021 Who Is Your [...] Anxious, Or Unable To Sleep At Night)? [id number] Information not available 09/28/2021 Do You Use [...] Problems Y Defects or Inherited Disease N Anemia [...] Immunizations Vaccine Type Date Status Note Provider Nam e and Address Organization Details Recorded Time Influenza, split virus, quadrivalent, preservative 1 completed SHEILA Gregory in [facility], 09/28/2021 08:16:54 Influenza, split virus, quadrivalent, preservative 6 completed SHEILA Gregory in [facility], 10/01/2022 08:05:25 Influenza, split virus, quadrivalent, preservative [...] SNOMED-CT Code Diagnosis ICD10 Code Diagnosis Note [id number] MD JESSIKA Villeda MD [address] [facility],[place] [address] 09/28/2021 08:05:43 09/28/2021 14:45:35 Specialized medical examination 43349934 Z01.419 Screening for malignant neoplasm of rectum 245422850 Z12.12 Screening mammography 24 823354 Z12.31 [id number] MD JESSIKA Villeda MD [address] [facility],[place] [address] 11/02/2021 08:33:46 11/02/2021 12:05:45 Family history of breast cancer 495266935 Z80.3 [id number] MD JESSIKA Villeda MD [address] [facility], [place] [address] 10/01/2022 07:58:47 10/01/2022 10:02:02 Specialized medical examination 04102736 Z01.419 Screening for malignant neoplasm of rectum 521710599 Z12.12 Screening mammography 24 094712 Z12.31 Candidiasis of skin 4988 3006 B37.2 Health Concerns Section Related Observation LastModified by Organization Detai ls LastModified Time None Recorded Concern Status LastModified by Organization Details LastModified Time None Recorded Advance Directives Directive None Recorded Payers Encounter Date Sequence Insurance Name Policy Number Policy Wing Covered Member ID Wing Member ID Guarantor Name 09/28/2021 1 [facility] [employer] (POS) Frances Jean Baptiste [id number] Frances Jean Baptiste 11/02/2021 1 [facility] (POS) Frances Jean Baptiste [id number] Frances Jean Baptiste 10/01/2022 1 [facility] PLAN (POS) Frances Jean Baptiste [id number] Frances Jean Baptiste Notes Date Note Type Note Provider Name and Address Organization Details Recorded Time 09/28/2021 text/html She is here as a new patient for annual exam. Menopause age 43, nulligravid, single, never smoker, presently not sexually active. Has moderate night sweats some nights but not others. Jessika Mccloud MD [address], [place], [address], [place] - [facility], 09/28/2021 13:22:03 11/02/2021 text/html She is here for BRCA testing, she has a strong family history of breast cancer in her paternal aunt and also 2 paternal first cousins. Jessika Mccloud MD [address], [place], [address], [place] - [facility], 11/02/2021 10:50:52 10/01/2022 text/html She is [...] MD [address], [place], [address], [place] - [facility], 10/01/2022 09:54:40 OBGyn Episode No OBEpisode recorded.
--- OUTSIDE RECORDS SUMMARY | 2024-07-28 14:36 | XMS_ITS | Referral Summary ---
Author Organization [facility] Address [address] [place] [address] Care Team Providers Care Supervisor Sewer System Name Role Phone Amelie Carr Primary Care Provider [phone] Allergies Active Allergy Reactions Criticality Noted Date [...] Description 08/05/2024 10:30 AM EDT Research Encounter [address] [address] Sandy Cueto MD [address] [place] [address] Procedures * Due to [facility] law, this organization might not be sharing negative HIV tests. Procedure Name Priority Date/Time Associated Diagnosis Comments COMPREHENSIVE METABOLIC PANEL Routine 08/16/2023 6:31 AM EDT from Last 3 Months or Most Recently Relevant to Health Maintenance Results * Due to [facility] law, this organization might not be sharing negative HIV tests. * Comprehensive Metabolic Panel (08/16/2023 6:31 AM EDT) NA 144 135 - 145 mmol/L 08/16/2023 8:05 AM EDT [facility] K 4.3 3.5 - 5.3 mmol/L 08/16/2023 8:05 AM EDT [facility] Cl 108 97 - 110 mmol/L 08/16/2023 8:05 AM EDT [facility] CO2 29 24 - 32 mmol/L 08/16/2023 8:05 AM [employer] [facility] Anion Gap 7 5 - 15 08/16/2023 8:05 AM [employer] [facility] Glucose 86 70 - 99 mg/dL 08/16/2023 8:05 AM [employer] [facility] Creatinine 0.73 0.50 - 1.20 mg/dL 08/16/2023 8:05 AM [facility] Calcium 8.9 8.7 - 10.7 mg/dL 08/16/2023 8:05 AM [employer] [facility] Total Protein 6.5 6.0 - 8.0 g/dL 08/16/2023 8:05 AM [employer] [facility] Albumin 3.8 3.5 - 4.8 g/dL 08/16/2023 8:05 AM [employer] [facility] Bilirubin, Total 0.4 0.3 - 1.2 mg/dL 08/16/2023 8:05 AM [employer] [facility] Alkaline Phosphatase 105 30 - 115 U/L 08/16/2023 8:05 AM [employer] [facility] AST 18 10 - 40 U/L 08/16/2023 8:05 AM [employer] [facility] ALT 14 10 - 40 U/L 08/16/2023 8:05 AM [employer] [facility] BUN 13 7 - 23 mg/dL 08/16/2023 8:05 AM [employer] [facility] eGFR >90 >=60 mL/min/1. 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
== END 2024-07-28 12:58 | disposition home or self-care (01) ==
LOC: HO.HMCC 11:48
PROVIDERS: PCP Internal Medicine; Visit Provider Internal Medicine
DX: Z00.00 Encounter for general adult medical examination without abnormal findings (principal); M31.6 Other giant cell arteritis; I10 Essential (primary) hypertension; E78.5 Hyperlipidemia, unspecified; F41.9 Anxiety disorder, unspecified; Z86.0100 Personal history of colon polyps, unspecified

== ENCOUNTER → 2024-07-28 11:48 | Outpatient (BNVA) | payer OTHER, SELFPAY | PROVIDERS: PCP Internal Medicine; Visit Provider Internal Medicine ==

== ENCOUNTER 2024-08-04 13:08 | Outpatient (REF) | payer OTHER, SELFPAY ==
--- OUTSIDE RECORDS SUMMARY | 2024-08-04 15:35 | XMS_ITS | Referral Summary ---
Author Organization [facility] Address [address] [place] [address] Care Team Providers Care Powerhouse Oiler Name Role Phone Amelie Carr Primary Care Provider [phone] Allergies Active Allergy Reactions Criticality Noted Date [...] Description 08/05/2024 10:30 AM EDT Research Encounter [address] [address] Sandy Cueto MD [address] [place] [address] Procedures * Due to [facility] law, this organization might not be sharing negative HIV tests. Procedure Name Priority Date/Time Associated Diagnosis Comments COMPREHENSIVE METABOLIC PANEL Routine 08/16/2023 6:31 AM EDT from Last 3 Months or Most Recently Relevant to Health Maintenance Results * Due to [facility] law, this organization might not be sharing negative HIV tests. * Comprehensive Metabolic Panel (08/16/2023 6:31 AM EDT) NA 144 135 - 145 mmol/L 08/16/2023 8:05 AM EDT [facility] K 4.3 3.5 - 5.3 mmol/L 08/16/2023 8:05 AM EDT [facility] Cl 108 97 - 110 mmol/L 08/16/2023 8:05 AM EDT [facility] CO2 29 24 - 32 mmol/L 08/16/2023 8:05 AM [facility] Anion Gap 7 5 - 15 08/16/2023 8:05 AM [facility] Glucose 86 70 - 99 mg/dL 08/16/2023 8:05 AM [facility] Creatinine 0.73 0.50 - 1.20 mg/dL 08/16/2023 8:05 AM [facility] Calcium 8.9 8.7 - 10.7 mg/dL 08/16/2023 8:05 AM [facility] Total Protein 6.5 6.0 - 8.0 g/dL 08/16/2023 8:05 AM [facility] Albumin 3.8 3.5 - 4.8 g/dL 08/16/2023 8:05 AM [facility] Bilirubin, Total 0.4 0.3 - 1.2 mg/dL 08/16/2023 8:05 AM [facility] Alkaline Phosphatase 105 30 - 115 U/L 08/16/2023 8:05 AM [facility] AST 18 10 - 40 U/L 08/16/2023 8:05 AM [facility] ALT 14 10 - 40 U/L 08/16/2023 8:05 AM [facility] BUN 13 7 - 23 mg/dL 08/16/2023 8:05 AM [facility] eGFR >90 >=60 mL/min/1. 73m2 08/16/2023 8:05 AM [facility] Comment:The estimated glomer ular [...] LAB BLOOD ORDERABLES Final Resul t [facility] [address] [place] [id number], from Last 3 Months or Most Recently Relevant to Health Maintenance Insurance HSNO/FREE CARE Advance Directives Documents on File Type Date Recorded Patient Lime Puller Expl [facility] Health Care Proxy 08/19/2023 8:51 AM 2023 * Full Code (Latest Code Status on File) Date Activated Date Inactivated Comments 08/15/2023 12:07 PM 08/17/2023 7:17 PM Healthcare Agents on File Name Relationship Healthcare Agent Relationshi p Communication Ana Jean Baptiste Sister Health Care Agent Care Teams Powerhouse Oiler Relationship Specialty Start Date End Date Amelie Carr [address] [place] [address] PCP - General Internal Medicine 08/13/23
--- OUTSIDE RECORDS SUMMARY | 2024-08-04 15:35 | XMS_ITS | Clinical Summary ---
Author Organization [facility] Address [address] [place] [address] Care Team Providers Care Button Inspector Name Role Phone Amelie Carr Primary Care Provider [phone] Allergies Active Allergy Reactions Criticality Noted Date [...] Description 08/05/2024 10:30 AM EDT Research Encounter [address] [address] Sandy Cueto MD [address] [place] [address] Health Maintenance Due Date Last Done Comments [...] topic Procedures * Due to [place] [facility] law, this organization might not be sharing negative HIV tests. Procedure Name Priority Date/Time Associated Diagnosis Comments COMPREHENSIVE METABOLIC PANEL Routine 08/16/2023 6:31 AM EDT from Last 3 Months or Most Recently Relevant to Health Maintenance Results * Due to [place] [facility] law, this organization might not be sharing negative HIV tests. * Comprehensive Metabolic Panel (08/16/2023 6:31 AM EDT) NA 144 135 - 145 mmol/L 08/16/2023 8:05 AM EDT [facility] K 4.3 3.5 - 5.3 mmol/L 08/16/2023 8:05 AM EDT [facility] Cl 108 97 - 110 mmol/L 08/16/2023 8:05 AM EDT [facility] CO2 29 24 - 32 mmol/L 08/16/2023 8:05 AM EDT [facility] Anion Gap 7 5 - 15 08/16/2023 8:05 AM EDT [facility] Glucose 86 70 - 99 mg/dL 08/16/2023 8:05 AM [facility] Creatinine 0.73 0.50 - 1.20 mg/dL 08/16/2023 8:05 AM [facility] Calcium 8.9 8.7 - 10.7 mg/dL 08/16/2023 8:05 AM [facility] Total Protein 6.5 6.0 - 8.0 g/dL 08/16/2023 8:05 AM [facility] Albumin 3.8 3.5 - 4.8 g/dL 08/16/2023 8:05 AM [facility] Bilirubin, Total 0.4 0.3 - 1.2 mg/dL 08/16/2023 8:05 AM [email or web address] Alkaline Phosphatase 105 30 - 115 U/L 08/16/2023 8:05 AM [facility] AST 18 10 - 40 U/L 08/16/2023 8:05 AM [facility] ALT 14 10 - 40 U/L 08/16/2023 8:05 AM [facility] BUN 13 7 - 23 mg/dL 08/16/2023 8:05 AM [email or web address] [facility] eGFR >90 >=60 mL/min/1. 73m2 08/16/2023 8:05 AM [facility] Comment:The estimated glomer ular [...] BLOOD ORDERABLES Final Resul t [facility] [address] [place] [address], from Last 3 Months or Most Recently Relevant to Health [place] [address] HSNO/FREE CARE Advance Directives Documents on File Type Date Recorded Patient Industrial Education Teacher Expl anation Health Care Proxy 08/19/2023 8:51 AM 2023 * Full Code (Latest Code Status on File) Date Activated Date Inactivated Comments 08/15/2023 12:07 PM 08/17/2023 7:17 PM Healthcare Agents on File Name Relationship Healthcare Agent [facility] Communication Ana Ita Sister Health Care Agent Care Teams Button Inspector Relationship Specialty Start Date End Date Amelie Carr [address] [place] [address] PCP - General Internal Medicine 08/13/23
--- OUTSIDE RECORDS SUMMARY | 2024-08-04 15:35 | XMS_ITS | Data Portability ---
Author Organization [place] [facility],, JESSIKA MCCLOUD MD Address [address] [address] Care Team Providers Care Wincher Name Role Phone SÁNCHEZ BELL Primary Care Provider Assessment No assessment recorded. Plan of Treatment Reminders Order Date Submit Date Provider Last Modified By Organization Details Last Modified Time Details Appointments None recorded. Lab pap test, thinprep, cervical 2022 023 [email or web address] [facility] (Centralized Electronic Ordering - All Locations), Patient Can Go To The Location Of Their Choice, [id number] 3 07:46:03 fecal occult blood, stool 2022 023 [email or web address] 1 In-Office Order, Internal Use Only DO Not Attach Compendium DO Not Attach Compendium, Do Not Delete/merge, [id number] 3 09:52:32 brca (1+2) mutation analysis, blood or tissue 2021 022 [email or web address] [facility], [address] [place] [address], [address], 2 08:58:15 pap test, thinprep, cervical 2021 022 harrison [facility], Cytopathology Service, [address] [place], [address], 2 08:05:47 fecal occult blood, stool 2021 022 [email or web address] 1 In-Office Order, Internal Use Only DO Not Attach Compendium DO Not Attach Compendium, Do Not Delete/merge, [id number] 2 13:20:41 Referral None recorded. Procedures None recorded. Surgeries None recorded. Imaging MAMMO, screening , digital, bilateral - Breast Aspiratio n and/or Biopsy if needed 2022 023 [email or web address] [facility] (Imaging), [address] [facility], [place], [address], 4 07:48:34 MAMMO, screening , digital, bilateral 2021 022 [facility] [address] [facility], [place], [address], 4 07:28:47 Medication Orders nystatin 100,000 unit/gram topical powder 2022 023 [facility] #[id number], [address] [facility] [place], [address], 3 09:53:24 Patient TargetsNo targets recorded. Patient Instructions Encounter Date Encounter Id Patient Instructions Last Modified By Organization Details Last Modified Time 09/28/2021 [id number] learning about healthy weight niru Not available [...] breast. [email or web address] Not available 09/28/2021 13:21:26 11/02/2021 [id number] She is here for BRCA testing, she [...] 375 dollars, and that the testing company ([employer]) will contact her if the co pay [...] ?50 minutes Not available 11/02/2021 10:50:36 10/01/2022 [id number] learning about healthy weight Not available 10/01/2022 [...] Detail LastModifiedTime 09/29/19 22 09/28/2021 PAP1C ASE [email or web address] ThinP rep Pap, Image d: NEGAT RAJ [...] ts. [Z12. 4, Z01.4 19] Not Available [facility], Cytopathology Service [address] [place], [address], 10/05/2021 07:31:06 09/29/19 22 09/28/2021 fecal occul t blood , stool Occult Blood negati ve Not Available In-Office Order Internal Use Only DO Not Attach Compendium DO Not Attach Compendium, Do Not Delete/merge, [id number] 09/28/2021 08:09:06 10/02/19 23 10/01/2022 [facility] CYTOL OGY results Patie nt Name: MARION WEISS nt : 1965 (Age: 57) Lab Acces windy #: [id number] Colle ction Date: 2022 Acces windy Date: 2022 Sign Out Date: 023 Tissu e Sourc e: 1: THINP REP JUNIOR ORACLE DBA PAP TEST, CERVI LONNIE: Final Diagn osis: [...] 19 , lps 09-28 neg Phone #: [phone], On-Ca ll Patho logis t: [id number] Not Available [facility] (Centralized Electronic Ordering - All Locations) Patient Can Go To The Location Of Their Choice, [id number] 10/18/2022 09:17:01 10/02/19 23 10/01/2022 fecal occul t blood , stool Occult Blood negati ve Not Available In-Office Order Internal Use Only DO Not Attach Compendium DO Not Attach Compendium, Do Not Delete/merge, [id number] 10/01/2022 08:09:15 Result Notes None recorded. Problems Name Problem SNOMED Code Status Onset Date Resolution Date Notes Provider Name and Address Organization Details Recorded Time Family history of breast cancer [id number] Active 2021 Jessika Mccloud MD [address], [place], [address] , [place] - [facility], 2 10:50:04 Candidiasis of skin 65245843 Active 2022 Jessika Mccloud MD [address], [place], [address], [place] - [facility], 3 09:52:43 Problem Notes None recorded. Procedures Surgical History Date Name Laterality Status Provider Name and Address Organization Details Recorded Time 12/27/19 22 Most Recent Mammogram completed Kelly Glasgow [place] - [facility], 10/01/2022 08:08:06 10/09/19 13 cholecystectomy completed Kelly Glasgow [place] - [facility], 09/28/2021 08:26:25 09/18/19 07 Hernia repair w/mesh completed Kelly Joanieywruddy [place] - [facility], 09/28/2021 08:26:00 09/15/18 96 Breast reduction completed Kelly Glasgow [place] - [facility], 09/28/2021 08:25:48 09/15/18 69 procedure on kidney completed Kelly Rogerswruddy [facility] - [facility], 09/28/2021 08:25:34 Imaging Results None recorded. Procedure Notes None recorded. Medical Equipment None Reported. Allergies Allergen ID Allergen Name Allergen Category Reaction Reaction Severity Criticality Documentation Date Start Date Code Code System Note Provider Name and Address Organization Details Recorded Time 24962 Dilantin medicatio n hives Not available Not available 09/28/2021 0 RxNorm Kelly Meczywor jabari [place] - [facility], 2 08:13:51 57001 amoxicill in medicatio n hives Not available Not available 09/28/2021 723 RxNorm Kelly Meczywor null [place] - [facility], 2 08:14:04 Medications Name Sig Start Date [...] Updated DateTime 2 170.18 cm 35 kg/m2 555705. 82 g 98.1 [degF] 67 /min 131 mm[Hg] 76 mm[Hg] Kelly Castillo in [facility], 2 08:12:08 Date Recorded Body height Body mass index (BMI) Body weight Heart rate Body temperature Systolic blood pressure Diastolic blood pressure Provider Name and Address Organization Details Last Updated DateTime 2 170.18 cm 34.9 kg/m2 903450. 1 g 97.2 /min 69 [degF] 128 mm[Hg] 73 mm[Hg] Cristina Castillo in [facility], 2 08:35:35 Date Recorded Body height Body mass index (BMI) Body weight Body temperature Heart rate Systolic blood pressure Diastolic blood pressure Provider Name and Address Organization Details Last Updated DateTime 3 165.1 cm 37.8 kg/m2 024460. 19 g 97.2 [degF] 91 /min 132 mm[Hg] 72 mm[Hg] Kelly Castillo [facility], 3 08:04:31 Social History Question Answer Notes LastModified by Organizat ion Details LastModified Time Tobacco Smoking Status Never Smoker [place] Gregory in [facility], 09/28/2021 08:24:27 What Is Your Level Of [...] Or The Highest Degree You Have Received? [id number] Information not available 09/28/2021 Who Is Your [...] Anxious, Or Unable To Sleep At Night)? [id number] Information not available 09/28/2021 Do You Use [...] or Bladder Problems Y Thyroid Problems N GI Problems Y Lung Disease N Depression Y Defects or Inherited Disease N History [...] quadrivalent, preservative 1 completed SHEILA Gregory [facility], 09/28/2021 08:16:54 Influenza, split virus, quadrivalent, preservative 6 completed [place] Gregory [facility], 10/01/2022 08:05:25 Influenza, split virus, quadrivalent, preservative [...] SNOMED-CT Code Diagnosis ICD10 Code Diagnosis Note [id number] MD JESSIKA Villeda MD [address] [facility] [address] 09/28/2021 08:05:43 09/28/2021 14:45:35 Specialized medical examination [id number] Z01.419 Screening for malignant neoplasm of rectum 969999252 Z12.12 Screening mammography 24 660217 Z12.31 [id number] MD JESSIKA Villeda MD [address] [facility],[place] [address] 11/02/2021 08:33:46 11/02/2021 12:05:45 Family history of breast cancer 616195595 Z80.3 [id number] MD JESSIKA Villeda MD [address] [facility] [place] [address] 10/01/2022 07:58:47 10/01/2022 10:02:02 Specialized medical examination 46582085 Z01.419 Screening for malignant neoplasm of rectum 327080297 Z12.12 Screening mammography 24 342006 Z12.31 Candidiasis of skin 4988 3006 B37.2 Health Concerns Section Related Observation LastModified by Organization Detai ls LastModified Time None Recorded Concern Status LastModified by Organization Details LastModified Time None Recorded Advance Directives Directive None Recorded Payers Encounter Date Sequence Insurance Name Policy Number Policy Wing Covered Member ID Wing Member ID Guarantor Name 09/28/2021 1 [facility] (POS) Frances Jean Baptiste [id number] Frances Jean Baptiste 11/02/2021 1 [facility] (POS) Frances Jean Baptiste [id number] Frances Jean Baptiste 10/01/2022 1 [facility] PL[facility] (POS) Frances Jean Baptiste [id number] Frances Jean Baptiste Notes Date Note Type Note Provider Name and Address Organization Details Recorded Time 09/28/2021 text/html She is here as a new patient for annual exam. Menopause age 43, nulligravid, single, never smoker, presently not sexually active. Has moderate night sweats some nights but not others. Jessika Mccloud MD [address], [place], [address], [place] - [facility], 09/28/2021 13:22:03 11/02/2021 text/html She is here for BRCA testing, she has a strong family history of breast cancer in her paternal aunt and also 2 paternal first cousins. Jessika Mccloud MD [address], [place], [address], [place] - [facility], 11/02/2021 10:50:52 10/01/2022 text/html She is here for annual, doing well.BRCA testing last year was negative. Note from 2021: She is here as a new patient for annual exam. Menopause age 43, nulligravid, single, never smoker, presently not sexually active. Has moderate night sweats some nights but not others.Discussed dietary issues for night sweats. Jessika Mccloud MD [address], [place], [address], [place] - [facility], 10/01/2022 09:54:40 OBGyn Episode No OBEpisode recorded.
[2024-08-04 16:10] LABS: MANUAL DIFF FLAG NO
[2024-08-04 16:27] LABS: Basophils Percent Auto 0.4 % (0-2); Eosinophils Absolute Auto 0.3 X10*3/uL (0.0-0.4); Eosinophils Percent Auto 3.4 % (0-4); Hematocrit 46.3 % (37.0-47.0); Imm Gran Abs Auto 0.02 X10*3/uL (0.00-0.03); Imm Gran Pct Auto 0.3 % (0.0-0.4); Lymphocytes Absolute Auto 1.9 X10*3/uL (1.2-4.9); Lymphocytes Percent Auto 24.4 % (20-40); Mean Corpuscular HGB Conc 32.4 g/dl (31.0-35.0); Mean Corpuscular Hemoglobin 30.3 pg (27.0-33.0); Mean Corpuscular Volume 93.5 fL (80.0-98.0); Mean Platelet Volume 8.9 fL (9.4-12.3); Monocytes Absolute Auto 0.6 X10*3/uL (0.1-1.2); Monocytes Percent Auto 7.4 % (2-11); Neutrophils Absolute Auto 4.9 x10*3/uL (2.0-8.3); Neutrophils Percent Auto 64.1 % (45-73); Platelet Count 293 X10*3/uL (160-400); Red Blood Count 4.95 X10*6/uL (4.20-5.50); Red Cell Distribution Width 13.3 % (11.0-16.0); White Blood Count 7.7 X10*3/uL (4.8-10.8)
[2024-08-04 20:00] LABS: Alanine Aminotransferase 22 U/L (0-31); Albumin Level 4.1 g/dL (3.5-5.0); Anion Gap 16 (12-20); Aspartate Amino Transferase 32 U/L (5-31); Bilirubin Total 0.6 mg/dL (0.0-1.0); Blood Urea Nitrogen 17 mg/dL (9-16); Calcium 9.2 mg/dL (8.4-10.2); Carbon Dioxide 23 mmol/L (22-29); Chloride 104 mmol/L (96-108); Cholesterol 255 mg/dL (<200); Estimated Glomerular Filt Rate > 60; Glucose Fasting 82 mg/dL (60-99); HDL Cholesterol 79 mg/dL (>40); LDL Cholesterol Calculated 161 mg/dL (<100); Potassium 4.1 mmol/L (3.3-5.1); Sodium 139 mmol/L (135-145); Total Protein 7.3 g/dL (6.5-8.0); Triglycerides 77 mg/dL (<150)
[2024-08-04 20:18] LABS: Alkaline Phosphatase 120 U/L (39-117); TSH reflex Free T4 3.05 uIU/mL (0.32-4.0); Vitamin D 25-OH Total 47.9 ng/mL (>30)
== END 2024-08-04 13:09 | disposition home or self-care (01) ==
LOC: HO.HMGCLDS 13:08
PROVIDERS: PCP Internal Medicine; Visit Provider Internal Medicine
DX: Z00.00 Encounter for general adult medical examination without abnormal findings (principal); E78.5 Hyperlipidemia, unspecified; I10 Essential (primary) hypertension
CPT/HCPCS: 36415; 80053; 80061; 82306; 84443; 85025

== ENCOUNTER → 2024-09-04 12:03 | Outpatient (BNVA) | payer OTHER, SELFPAY | PROVIDERS: PCP Internal Medicine; Visit Provider Internal Medicine ==

== ENCOUNTER 2024-09-15 09:51 | Outpatient (AMB) | payer OTHER, SELFPAY ==
--- NOTE | 2024-09-15 09:53 | AM.OFFWIN_ITS ---
Intake Vital Signs 09/15/24 09:58 Weight 212 lb BP 120/80 Blood Pressure Location Lt brachial Position Sitting Pulse 92 Pulse Source Pulse Oximeter Pulse Oximetry (%) 95 Oxygen Delivery Method Room Air Intake Visit Reasons: EP-b/l stye eyes Intake Note: Patient here for stye in both eyes that she noticed yesterday. Patient Tobacco Use Status: Former Tobacco user Allergies phenytoin [From Dilantin] Allergy (Severe, Verified 09/15/24 09:57) rash amoxicillin Allergy (Intermediate, Verified 09/15/24 09:57) rash Do you need a note to return to daycare/school/sports/work: No HPI HPI Comments History of Present Illness Details History of Present Illness - The patient is a 59-year-old female pr esenting with complaints of stye in both eyes. - She reported the onset of symptoms the day prior, beginning with discomfort in her left eye upon blinking. - By the following morning, the left eye was swollen with another stye developing in the right eye. - There is a history of a similar incide nt approximately four months earlier, which resolved with antibiotic treatment. - Currently, both eyes are involved, wit h the patient noting swollen and potentially clogged ducts but no impact on vision or pain. Physical Exam General: Cooperative, healthy appearing, comfortable, no acute distress and well developed Orientation: Patient oriented x3 Limitations: No limitations Head: Normal to inspection Ears: Hearing grossly normal bilaterally Nose: Normal External nose present Face and sinus: Normal facial exam Eyes: Left eye 2 sty's on lower eyelid, no injection, right eye with another sty. EOM intact Neck: Normal visual inspection and Yes full ROM Respiratory: Normal respiratory effort and able to speak in complete sentences. Skin: No rashes or lesions noted Neuro: Patient oriented x3 Extremities: Normal to inspection [facility] Medical History (Updated 09/15/24 @ 10:16 by Daisy Nelson PA-C) History of sleep apnea History of hiatal hernia Surgical History History of uvulectomy History of tonsillectomy History of cholecystectomy History of appendectomy History of bilateral breast reduction surgery Family History Mother Substance abuse Father Bladder cancer Brother Substance abuse Brother Substance abuse Sister Substance abuse Social History Housing: Condominium Alcohol intake: current Patient Tobacco Use Status: Former Tobacco user Cigarettes Per Day: 10 e-Cigarette/Vaping Use: Never Used Second Hand Smoke Exposure: No service: No Current occupational status: employed Current occupational exposures/hazards: No Cognitive needs: No Hearing needs: No Vision needs: Yes Review of Systems Const All systems reviewed & are unremarkable except as noted in HPI and below Physical Exam Vital Signs: Last Vital Signs Pulse 92 09/15/24 09:58 BP 120/80 09/15/24 09:58 Pulse Ox 95 09/15/24 09:58 Oxygen Delivery Method Room Air 09/15/24 09:58 Assessment & Plan Assessment & Plan (1) Hordeolum externum left lower eyelid: Code(s): H00.015 - Hordeolum externum left lower eyelid Plan: The plan for managing the bilateral hordeolum involves primarily using warm compresses multiple times a day to alleviate duct obstruction. Erythromycin ophthalmic ointment is prescribed as a contingency should symptoms fail to resolve or worsen, with first application directed towards the left eye as today it appears worse than the right eye. The patient understands these steps and will monitor for alarming symptoms such as vision changes or pain, which will necessitate further ophthalmology consultation. Patient was informed and verbally consented to the use of an ambient scribe for clinic note documentation during this visit. Medications: New erythromycin Apply to left eye 4 times a day while awake 0.5 inches ophthalmic (eye) QID 3.5 grams 0RF Coding Level of Care Code Est Pt Level 3 (52512) Diagnoses Hordeolum externum left lower eyelid H00.015
[2024-09-15 09:58] VITALS: BP 120/80; PULSE 92; O2SAT 95
--- OUTSIDE RECORDS SUMMARY | 2024-09-15 11:02 | XMS_ITS | Data Portability ---
Author Organization [place] - [facility],, JESSIKA MCCLOUD MD Address [address] [address] Care Team Providers Care Travel Assistant Name Role Phone SÁNCHEZ BELL Primary Care Provider Assessment No assessment recorded. Plan of Treatment Reminders Order Date Submit Date Provider Last Modified By Organization Details Last Modified Time Details Appointments None recorded. Lab pap test, thinprep, cervical 2022 023 [email or web address] [facility] (Centralized Electronic Ordering - All Locations), Patient Can Go To The Location Of Their Choice, [id number] 3 07:46:03 fecal occult blood, stool 2022 023 [email or web address] 1 In-Office Order, Internal Use Only DO Not Attach Compendium DO Not Attach Compendium, Do Not Delete/merge, [id number] 3 09:52:32 brca (1+2) mutation analysis, blood or tissue 2021 022 [email or web address] [facility], [address] [place] [address], [address], 2 08:58:15 pap test, thinprep, cervical 2021 022 [email or web address] [facility], Cytopathology Service, [address] [place], [address], 2 08:05:47 fecal occult blood, stool 2021 022 [email or web address] 1 In-Office Order, Internal Use Only DO Not Attach Compendium DO Not Attach Compendium, Do Not Delete/merge, [id number] 2 13:20:41 Referral None recorded. Procedures None recorded. Surgeries None recorded. Imaging MAMMO, screening , digital, bilateral - Breast Aspiratio n and/or Biopsy if needed 2022 023 [email or web address] [facility] (Imaging), [address], [place], [address], 4 07:48:34 MAMMO, screening , digital, bilateral 2021 [facility]22 [facility] [address], [place], [address], 4 07:28:47 Medication Orders nystatin 100,000 unit/gram topical powder 2022 023 [id number], [address] [place], [address], 3 09:53:24 Patient TargetsNo targets recorded. Patient Instructions Encounter Date Encounter Id Patient Instructions Last Modified By Organization Details Last Modified Time 09/28/2021 [id number] learning about healthy weight niru Not available [...] breast. [email or web address] Not available 09/28/2021 13:21:26 11/02/2021 [id number] She is here for BRCA testing, she has a strong family history of breast cancer in her paternal aunt and also 2 paternal first cousins. We discussed her strong family history of breast cancer. We discussed that only 5% of patients who have a strong family history of breast and /or ovarian cancer will ultimately be found to be BRCA positive. We discussed how the human genome functions to transfer traits and risks, and what a mutation is, and how this can be passed from parent to child. We discussed the 50% chance that a BRCA positive individual will give the mutation to their child, and that 50% of the children, statistically, will not inherit the mutation, which means that they can not pass it on. It does not skip a generation. We [...] 375 dollars, and that the testing company ([facility]) will contact her if the co pay [...] cost for that testing, discussed. All questions answered. She would like to be tested, and she qualifies to be tested. She is aware that it is her responsibility to be certain the test will be covered by her insurance however we will work with her to get accurate information for her to make decisions. Face to face discussion 50 minutes [email or web address] Not available 11/02/2021 10:50:36 10/01/2022 [id number] learning about healthy weight [email or web address] Not available 10/01/2022 09:52:31 She is her [...] Detail LastModifiedTime 09/29/19 22 09/28/2021 PAP1C ASE [id number] ThinP rep Pap, Image d: NEGAT RAJ FOR SQUAM OUS INTRA EPITH ELIAL SHAWN Yoon AND MOHINI BABIN . Indigo [place] , CT( CP) (Case elect lazarus hankkhalida jose g d 10 04 2021) ADEQU ACY: Satis facto ry Endoc ervic al/tr ansfo rmati on zone compo nent prese nt. SOURC E: ThinP rep Pap HPV IF Ascus : Refle x 16 and 18, Cervi lonnie, Image d CLINI LONNIE INFOR MATIO N: HPV If Diagn osis of ASCUS . LPS no resul ts. [Z12. 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 Problems Name Problem SNOMED Code Status Onset Date Resolution Date Notes Provider Name and Address Organization Details Recorded Time Family history of breast cancer 696807203 Active 2021 Jessika Mccloud MD [address], [place], [address], [place] - [facility], 2 10:50:04 Candidiasis of skin 53743523 Active 2022 Jessika Mccloud MD [address], [place], [address], [place] - [facility], 3 09:52:43 Problem Notes None recorded. Procedures Surgical History Date Name Laterality Status Provider Name and Address Organization Details Recorded Time 12/27/19 22 Most Recent Mammogram completed Kelly Glasgow [place] - [facility], 10/01/2022 08:08:06 10/09/19 13 cholecystectomy completed Kelly Glasgow [place] - [facility], 09/28/2021 08:26:25 09/18/19 07 Hernia repair w/mesh completed Kelly Glasgow [place] - [facility], 09/28/2021 08:26:00 09/15/18 96 Breast reduction completed Kelly Glasgow [place] - [facility], 09/28/2021 08:25:48 09/15/18 69 procedure on kidney completed Kelly Glasgow [place] - [facility], 09/28/2021 08:25:34 Imaging Results None recorded. Procedure Notes None recorded. Medical Equipment None Reported. Allergies Allergen ID Allergen Name Allergen Category Reaction Reaction Severity Criticality Documentation Date Start Date Code Code System Note Provider Name and Address Organization Details Recorded Time 61677 Dilantin medicatio n hives Not available Not available 09/28/202158038 0 RxNorm [place] Gregory in [facility], 2 08:13:51 82388 amoxicill in medicatio n hives Not available Not available 09/28/2021 723 RxNorm [place] Gregory in [facility], 2 08:14:04 Medications Name Sig [...] Updated DateTime 2 170.18 cm 35 kg/m2 493475. 82 g 98.1 [degF] 67 /min 131 mm[Hg] 76 mm[Hg] Kelly Castillo in [facility], 2 08:12:08 Date Recorded Body height Body mass index (BMI) Body weight Body temperature Heart rate Systolic blood pressure Diastolic blood pressure Provider Name and Address Organization Details Last Updated DateTime 3 165.1 cm 37.8 kg/m2 449361. 19 g 97.2 [degF] 91 /min 132 mm[Hg] 72 mm[Hg] Kelly Castillo in [facility], 3 08:04:31 Date Recorded Body height Body mass index (BMI) Body weight Heart rate Body temperature Systolic blood pressure Diastolic blood pressure Provider Name and Address Organization Details Last Updated DateTime 2 170.18 cm 34.9 kg/m2 866078. 1 g 97.2 /min 69 [degF] 128 mm[Hg] 73 mm[Hg] Cristina Castillo in [facility], 2 08:35:35 Social History Question Answer Notes LastModified by Organizat ion Details LastModified Time Tobacco Smoking Status Never Smoker [place]A Gregory in [facility], 09/28/2021 08:24:27 How Many Years Have You Consumed Alcohol? 30 Information not available 09/28/2021 What Is Your Level Of Caffeine Consumption? Moderate Information not available 09/28/2021 In The 14 Days Before Symptom Onset, Have You Had Close Contact With A Laboratory-confirm ed COVID-19 While That Case Was Ill? No Information n ot available 09/28/2021 In The 14 Days Before Symptom Onset, Have You Had Close Contact With A Person Who Is Under Investigation For COVID-19 While That Person Was Ill? No Information not available 09/28/2021 Have You Been To An Area Known To Be High Risk For COVID-19? No Information not available 09/28/2021 Which Illicit Or Recreational Drugs Have You Used? Marijuana Information not available 09/28/2021 What Is The Highest Grade Or Level Of School You Have Completed Or The Highest Degree You Have Received? 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 No Information not available 09/28/2021 How Many Years Have You Used Illicit Or Recreational Drugs? 1 Information not available 09/28/2021 To Which Gender Do You Self-identify? Female Information n ot available 09/28/2021 What Was The Date Of Your Most Recent Tobacco Screening? 10/01/2022 Information not available 10/01/2022 What Is Your Relationship Status? Single Information not available 09/28/2021 Are You Sexually Active? No Information not available 09/28/2021 How Many Days In The Past Year Have You Consumed 4 Or More Drinks? 10 Information not available 09/28/2021 Sex: Female Functional Status Question Answer Note LastModified by Organizat ion Details LastModified Time Do you use any illicit or recreational drugs? Yes Information not available 09/28/2021 Do you or have you ever used any other forms of tobacco or nicotine? No Information not available 09/28/2021 What is your level of alcohol consumption? Moderate Information not available 09/28/2021 Are you currently employed? Yes Information not available 09/28/2021 What is your occupation? unemployment Information not available 09/28/2021 What is your exercise level? Occasional Information not available 09/28/2021 Mental Status Question Answer Note LastModified by Organization D etails LastModified Time Do you feel stressed (tense, restless, nervous, or anxious, or unable to sleep at night)? [id number] Information not available 09/28/2021 Family History Relationship Description Onset Age of [...] quadrivalent, preservative 1 completed [place] Gregory in [facility], 09/28/2021 08:16:54 Influenza, split virus, quadrivalent, preservative 6 completed [place] Gregory in [facility], 10/01/2022 08:05:25 Influenza, split virus, quadrivalent, preservative [...] SNOMED-CT Code Diagnosis ICD10 Code Diagnosis Note [id number] MD JESSIKA Villeda MD [address] [facility] [place] [address] 09/28/2021 08:05:43 09/28/2021 14:45:35 Specialized medical examination 02212509 Z01.419 Screening for malignant neoplasm of rectum 424834158 Z12.12 Screening mammography 24 123433 Z12.31 [id number] MD JESSIKA Villeda MD [address] [facility] [place] [address] 11/02/2021 08:33:46 11/02/2021 12:05:45 Family history of breast cancer 378427774 Z80.3 [id number] MD JESSIKA Villeda MD [address] [facility] [place] [address] 10/01/2022 07:58:47 10/01/2022 10:02:02 Specialized medical examination 22790761 Z01.419 Screening for malignant neoplasm of rectum 530171237 Z12.12 Screening mammography 24 015924 Z12.31 Candidiasis of skin 4988 3006 B37.2 Health Concerns Section Related Observation LastModified by Organization Detai ls LastModified Time None Recorded Concern Status LastModified by Organization Details LastModified Time None Recorded Advance Directives Directive None Recorded Payers Encounter Date Sequence Insurance Name Policy Number Policy Wing Covered Member ID Wing Member ID Guarantor Name 09/28/2021 1 [employer] ([employer]) Frances Jean Baptiste [id number] Frances Jean Baptiste 11/02/2021 1 [employer] (POS) Frances Jean Baptiste [id number] Frances Jean Batpiste 10/01/2022 1 [employer] (POS) Frances Jean Baptiste [id number] Frances Jean Baptiste Notes Date Note Type Note Provider Name and Address Organization Details Recorded Time 09/28/2021 text/html She is here as a new patient for annual exam. Menopause age 43, nulligravid, single, never smoker, presently not sexually active. Has moderate night sweats some nights but not others. Jessika Mccloud MD [address], [place], [address], [facility] - [facility], 09/28/2021 13:22:03 11/02/2021 text/html She is here for BRCA testing, she has a strong family history of breast cancer in her paternal aunt and also 2 paternal first cousins. Jessika Mccloud MD [address], [place], [address], [facility] - [facility], 11/02/2021 10:50:52 10/01/2022 text/html She [...] MD [address], [place], [address], [facility] - [facility], 10/01/2022 09:54:40 OBGyn Episode No OBEpisode recorded.
== END 2024-09-15 10:18 | disposition home or self-care (01) ==
PROVIDERS: PCP Internal Medicine; Visit Provider Physician Assistant
DX: H00.015 Hordeolum externum left lower eyelid (principal)

== ENCOUNTER → 2024-09-15 09:51 | Outpatient (BNVA) | payer OTHER, SELFPAY | PROVIDERS: PCP Internal Medicine; Visit Provider Physician Assistant | DX: Z13.89 Encounter for screening for other disorder (principal) ==

== ENCOUNTER 2024-09-22 10:40 | Outpatient (REF) | payer OTHER, SELFPAY ==
--- OUTSIDE RECORDS SUMMARY | 2024-09-22 12:33 | XMS_ITS | Data Portability ---
Author Organization [place] - [facility],, JESSIKA MCCLOUD MD Address [address] [address] Care Team Providers Care Production Proofreader Name Role Phone SÁNCHEZ BELL Primary Care Provider Assessment No assessment recorded. Plan of Treatment Reminders Order Date Submit Date Provider Last Modified By Organization Details Last Modified Time Details Appointments None recorded. Lab pap test, thinprep, cervical 2022 023 [email or web address] [facility] (Centralized Electronic Ordering - All Locations), Patient Can Go To The Location Of Their Choice, [id number] 3 07:46:03 fecal occult blood, stool 2022 023 [email or web address] 1 In-Office Order, Internal Use Only DO Not Attach Compendium DO Not Attach Compendium, Do Not Delete/merge, [id number] 3 09:52:32 brca (1+2) mutation analysis, blood or tissue 2021 022 [email or web address] [facility], [address] [place] [address], [address], 2 08:58:15 pap test, thinprep, cervical 2021 022 harrison [facility], Cytopathology Service, [address] [place], [address], 2 08:05:47 fecal occult blood, stool 2021 022 [email or web address] 1 In-Office Order, Internal Use Only DO Not Attach Compendium DO Not Attach Compendium, Do Not Delete/merge, [id number] 2 13:20:41 Referral None recorded. Procedures None recorded. Surgeries None recorded. Imaging MAMMO, screening , digital, bilateral - Breast Aspiratio n and/or Biopsy if needed 2022 023 [facility] (Imaging), [address], [place], [address], 5 10:30:21 MAMMO, screening , digital, bilateral 2021 022 [facility] ([facility]), [address], [place], [address], 4 07:28:47 Medication Orders nystatin 100,000 unit/gram topical powder 2022 023 [facility][id number], [address] [place], [address], 3 09:53:24 Patient TargetsNo targets recorded. Patient Instructions Encounter Date Encounter Id Patient Instructions Last Modified By Organization Details Last Modified Time 09/28/2021 [id number] learning about healthy weight [email or web address] Not available [...] discovers any new mass in the breast. [email or web address] Not available 09/28/2021 13:21:26 11/02/2021 [id number] She is here for BRCA testing, she [...] 375 dollars, and that the testing company ([employer]) will contact her if the co pay [...] minutes [email or web address] Not available 11/02/2021 10:50:36 10/01/2022 [id number] learning about healthy weight [email or web address] Not available 10/01/2022 09:52:31 She is her [...] Detail LastModifiedTime 09/29/19 22 09/28/2021 PAP1C ASE [email or web address] ThinP rep Pap, Image d: NEGAT RAJ [...] ts. [Z12. 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 Problems Name Problem SNOMED Code Status Onset Date Resolution Date Notes Provider Name and Address Organization Details Recorded Time Family history of breast cancer 314198504 Active 2021 Jessika Mccloud MD [address], [place], [address], [place] - [facility], 2 10:50:04 Candidiasis of skin 42929318 Active 2022 Jessika Mccloud MD [address], [place], [address], [place] - [facility], 3 09:52:43 Problem Notes None recorded. Procedures Surgical History Date Name Laterality Status Provider Name and Address Organization Details Recorded Time 12/27/19 22 Most Recent Mammogram completed Kelly Glasgow [place] - [facility], 10/01/2022 08:08:06 10/09/19 13 cholecystectomy completed Kelly Glasgow [place] - [facility], 09/28/2021 08:26:25 09/18/19 07 Hernia repair w/mesh completed Kelly Glasgow [place] - [facility], 09/28/2021 08:26:00 09/15/18 96 Breast reduction completed Kelly Glasgow [place] - [facility], 09/28/2021 08:25:48 09/15/18 69 procedure on kidney completed Kelly Glasgow [place] - [facility], 09/28/2021 08:25:34 Imaging Results None recorded. Procedure Notes None recorded. Medical Equipment None Reported. Allergies Allergen ID Allergen Name Allergen Category Reaction Reaction Severity Criticality Documentation Date Start Date Code Code System Note Provider Name and Address Organization Details Recorded Time 91660 Dilantin medicatio n hives Not available Not available 09/28/202144142 0 RxNorm [place] Gregory in [facility], 2 08:13:51 10824 amoxicill in medicatio n hives Not available Not available 09/28/2021 723 RxNorm Kellymaribel RogerswSHEILA last in [facility], 2 08:14:04 Medications Name Sig Start Date [...] Updated DateTime 2 170.18 cm 35 kg/m2 680833. 82 g 98.1 [degF] 67 /min 131 mm[Hg] 76 mm[Hg] Kelly Castillo in [facility], 2 08:12:08 Date Recorded Body height Body mass index (BMI) Body weight Body temperature Heart rate Systolic blood pressure Diastolic blood pressure Provider Name and Address Organization Details Last Updated DateTime 3 165.1 cm 37.8 kg/m2 120363. 19 g 97.2 [degF] 91 /min 132 mm[Hg] 72 mm[Hg] Kelly Castillo in [facility], 3 08:04:31 Date Recorded Body height Body mass index (BMI) Body weight Heart rate Body temperature Systolic blood pressure Diastolic blood pressure Provider Name and Address Organization Details Last Updated DateTime 2 170.18 cm 34.9 kg/m2 208789. 1 g 97.2 /min 69 [degF] 128 mm[Hg] 73 mm[Hg] Cristina Castillo in [facility], 2 08:35:35 Social History Question Answer Notes LastModified by Organizat ion Details LastModified Time Tobacco Smoking Status Never Smoker [place] Gregory in [facility], 09/28/2021 08:24:27 How Many Years Have You [...] Or The Highest Degree You Have Received? MO36320-5 Information not available 09/28/2021 Who Is Your [...] anxious, or unable to sleep at night)? [id number] Information not available 09/28/2021 Family History Relationship [...] for MyRisk panel N Autoimmune Condition N Depression Y Lung Disease N Defects or Inherited Disease N History of Ovarian Cancer N BRCA testing in past N Anxiety Disorder Y Arthritis Y Infertility N History of Cancer N Endometriosis N Kidney or Bladder Problems Y Thyroid Problems N GI Problems Y Anemia N History of Breast Cancer N HAROLDO exposure N Osteopenia N Psychiatric Illness N Diabetes N Headaches or Migraines Y Asthma N Hepatitis N Heart Disease N Hypertension [...] quadrivalent, preservative 1 completed [place] Gregory in [facility], 09/28/2021 08:16:54 Influenza, split virus, quadrivalent, preservative 6 completed [place] Gregory in [facility], 10/01/2022 08:05:25 Influenza, split virus, quadrivalent, preservative [...] SNOMED-CT Code Diagnosis ICD10 Code Diagnosis Note [id number] MD JESSIKA Villeda MD [address] [facility] [place] [address] 09/28/2021 08:05:43 09/28/2021 14:45:35 Specialized medical examination 10761777 Z01.419 Screening for malignant neoplasm of rectum 444509381 Z12.12 Screening mammography 24 745932 Z12.31 [id number] MD JESSIKA Villeda MD [address] [facility] [place] [address] 11/02/2021 08:33:46 11/02/2021 12:05:45 Family history of breast cancer 202325802 Z80.3 [id number] MD JESSIKA Villeda MD [address] [facility] [place] [address] 10/01/2022 07:58:47 10/01/2022 10:02:02 Specialized medical examination 57078415 Z01.419 Screening for malignant neoplasm of rectum 463704507 Z12.12 Screening mammography 24 162916 Z12.31 Candidiasis of skin 4988 3006 B37.2 Health Concerns Section Related Observation LastModified by Organization Detai ls LastModified Time None Recorded Concern Status LastModified by Organization Details LastModified Time None Recorded Advance Directives Directive None Recorded Payers Encounter Date Sequence Insurance Name Policy Number Policy Wing Covered Member ID Wing Member ID Guarantor Name 09/28/2021 1 [facility] (POS) Frances Jean Baptiste [id number] Frances Jean Baptiste 11/02/2021 1 [facility] [facility] (POS) Frances Jean Baptiste [id number] Frances Jean Baptiste 10/01/2022 1 [facility] [facility] (POS) Frances Jean Baptiste [id number] Frances Jean Baptiste Notes Date Note Type Note Provider Name and Address Organization Details Recorded Time 09/28/2021 text/html She is here as a new patient for annual exam. Menopause age 43, nulligravid, single, never smoker, presently not sexually active. Has moderate night sweats some nights but not others. Jessika Mccloud MD [address], [place], [address], [facility] - [facility], 09/28/2021 13:22:03 11/02/2021 text/html She is here for BRCA testing, she has a strong family history of breast cancer in her paternal aunt and also 2 paternal first cousins. Jessika Mccloud MD [address], [place], [address], [facility] - [facility], 11/02/2021 10:50:52 10/01/2022 text/html She is here for annual, doing well.BRCA testing last year was negative. Note from 2021: She is here as a new patient for annual exam. Menopause age 43, nulligravid, single, never smoker, presently not sexually active. Has moderate night sweats some nights but not others.Discussed dietary issues for night sweats. Jessika Mccloud MD [address], [place], [address], [facility] - [facility], 10/01/2022 09:54:40 OBGyn Episode No OBEpisode recorded.
[2024-09-22 14:00] LABS: C Reactive Protein 0.76 mg/dL (< or = 0.50)
[2024-09-22 14:16] LABS: Erythrocyte Sedimentation Rate 16 MM/HR (0-20)
== END 2024-09-22 10:41 | disposition home or self-care (01) ==
LOC: HO.HMGCLDS 10:40
PROVIDERS: PCP Internal Medicine; Visit Provider Internal Medicine Rheumatology
DX: M31.6 Other giant cell arteritis (principal)
CPT/HCPCS: 36415; 85652; 86140

== ENCOUNTER 2024-12-10 09:01 | Outpatient (AMB) | payer OTHER, SELFPAY ==
--- OUTSIDE RECORDS SUMMARY | 2024-12-09 15:00 | XMS_ITS | Encounter Summary ---
Author Organization [facility] Address [address] [place] [address] [address] [place] [address] Phone Care Team Providers Care Animal Husbandry Professor Name Role Phone Amelie Carr MD Primary Care Provider [phone] Reason for Referral * Physical Therapy (Within 2 weeks) - New Request Specialty Diagnoses / Procedures Referred By Bernadette t Referred To Contact Diagnoses Pain in joints Bobby Maloney MD [address] [place] [address] Phone: tel: fax: [email or web address] Referral ID Status Reason Start Date Expiration Date V isits Requested Visits Authorized [id number] New Request 12/09/2024 12/09/2025 1 1 Encounter Details Date Type Department Care Team (Latest Contact Info) Description 12/09/2024 3:00 PM EDT Office Visit [facility] Rheumatology [address], [address], [address] [place] [address] Bobby Maloney MD [address] [place] [phone] [email or web address] Pain in joints (Primary Dx) Social History Tobacco Use Types Packs/Day Years Used Date Smoking Tobacco: Light Smoker Smokeless Tobacco: Never Comments:social Education Answer Date Recorded Are you interested in more education? Not on jed e 08/10/2022 Are you concerned about learning? Not on file 08/10/2022 No 08/10/2022 No 08/10/2022 Digital Access Answer Date Recorded No 09/08/2022 No 09/08/2022 Reliable internet access at home? Not on file 09/08/2022 Device with a working camera? Not on file Intimate Partner Violence Answer Date R ecorded Are you denied basic needs s uch as food, clothing, or medical care? No 09/09/2023 In the past 12 months have y ou been in a relationship with a person who hurts, threatens, or tries to control you? No 09/09/2023 Are you denied basic needs s uch as food, clothing, or medical care? No 09/09/2023 In the past 12 months have y ou been in a relationship with a person who hurts, threatens, or tries to control you? No 09/09/2023 Comments No Sex and Gender Information Value Date Recorded Sex Assigned at Female 09/02/2019 3:33 PM EDT Legal Sex Female 10:19 AM EDT Gender Identity Female 09/02/2019 3:33 PM EDT Sexual Orientation Straight 09/02/2019 3: 33 PM EDT documented as of this encounter Last Filed Vital Signs Vital Sign Reading Time Taken Comments Blood Pressure 124/77 12/09/2024 3:09 PM EDT Pulse 102 12/09/2024 3:09 PM EDT Temperature 35.8 C (96.5 F) 12/09/2024 3:09 PM EDT Respiratory Rate - - Oxygen Saturation 96% 12/09/2024 3:09 PM EDT Inhaled Oxygen Concentration - - Weight 102.1 kg (225 lb) 12/09/2024 3:09 PM EDT Height 167.6 cm (5' 6 ) 12/09/2024 3:09 PM EDT Body Mass Index 36.32 12/09/2024 3:09 PM EDT documented in this encounter Plan of Treatment Upcoming Encounters Date Type Department Care Team (Late st Contact Info) Description 04/21/2025 10:00 AM EST Office Visit [facility] Rheumatology [place] [address], [address] [place] [address] Bobby Maloney MD [address] [place] [address] [email or web address] Scheduled Orders Name Type Priority Associated Diagnoses Orde r Schedule XR Hand (Left) Imaging Routine Pain in joints Expected: 12/09/2024, Expires: 03/11/2026 XR Hand (Right) Imaging Routine Pain in joints Expected: 12/09/2024, Expires: 03/11/2026 XR Knee (Left) Imaging Routine Pain in joints Expected: 12/09/2024, Expires: 03/11/2026 XR Knee (Right) Imaging Routine Pain in joints Expected: 12/09/2024, Expires: 03/11/2026 Scheduled Referrals Name Type Priority Associated Diagnoses Order Schedule Ambulatory referral to External Physical Therapy Outpatient Referral Routine Pain in joints Ordered: 12/09/2024 documented as of this encounter Visit Diagnoses Diagnosis Pain in joints- Primary Pain in joint, multiple sites documented in this encounter Care Teams Animal Husbandry Professor Relationship Specialty Start Date End Date Amelie Carr MD [address] [place] [address] PCP - General Internal Medicine 09/23/23 documented as of this encounter Additional Source Comments The information contained in this document represents components of the legal health record. It is not the complete legal health record.[facility]
[2024-12-10 09:07] VITALS: BP 118/72; PULSE 75; RESP 20; TEMP 36.8; O2SAT 96; BMI 36.8
--- NOTE | 2024-12-10 09:07 | A.OFFPC_ITS ---
Vital Signs 12/10/24 09:07 Height 5 ft 6 in Weight 228 lb BMI 36.8 BP 118/72 Blood Pressure Location Lt brachial Position Sitting Respiration 20 Pulse 75 Pulse Source Pulse Oximeter Temp 98.2 F Temp Source Oral Pulse Oximetry (%) 96 Oxygen Delivery Method Room Air Intake Visit Reasons: weight loss Intake Note: Pt is here today for a follow up visit on weight loss. Allergies phenytoin (From Dilantin) Allergy (Severe, Verified 12/10/24 09:09) rash amoxicillin Allergy (Intermediate, Verified 12/10/24 09:09) rash Medication List - Last Reconciled 12/10/24 by Amelie Carr MD aspirin 81 mg PO DAILY Bacillus coagulans-inulin 1 billion-250 cell-mg caps PO calcium citrate-vitamin D3 315 mg-6.25 mcg (250 unit) 1 tab PO BID cyanocobalamin (vitamin B-12) injections ergocalciferol (vitamin D2) 1,250 mcg PO QWEEK erythromycin 0.5 inches ophthalmic (eye) QID fluocinonide 0.05% mL topical BID PRN hydrocortisone 2.5% appl topical ketoconazole 2% 1 appl topical 2XW PRN lisinopril 5 mg PO DAILY lorazepam 0.5 mg PO QID PRN omeprazole 20 mg PO DAILY sertraline 100 mg PO DAILY 90 days tirzepatide (weight loss) (Zepbound) 2.5 mg (0.5 mL) subcut QWEEK Tobacco use date assessed: 12/10/24 Dental Screening Dental Screen Date: 05/07/24 HPI weight loss HPI Details Pt presents for f/u. Hypertension is controlled on lisinopril. Pt has been increasing physical activity and decreasing caloric intake and trying to lose weight for over 6 months unsuccessfully. Patient is interested in trying Zepbound to facilitate weight loss [facility] Medical History (Updated 12/10/24 @ 12:35 by Amelie Carr MD) Ischemic demyelination of optic nerve Giant cell arteritis BMI 34.0-34.9,adult Osteopenia Hyperlipidemia PFO (patent foramen ovale) Essential hypertension History of sleep apnea History of hiatal hernia Surgical History History of uvulectomy History of tonsillectomy History of cholecystectomy History of appendectomy History of bilateral breast reduction surgery Family History Mother Substance abuse Father Bladder cancer Brother Substance abuse Brother Substance abuse Sister Substance abuse Social History Housing: Condominium Alcohol intake: current Patient Tobacco Use Status: Former Tobacco user Cigarettes Per Day: 10 e-Cigarette/Vaping Use: Never Used Second Hand Smoke Exposure: No service: No Current occupational status: employed Current occupational exposures/hazards: No Cognitive needs: No Hearing needs: No Vision needs: Yes Questionnaire PHQ-9 Over the last 2 weeks, how often have you been bothered by any of the following problems? 1. Little interest or pleasure in doing things: not at all 2. Feeling down, depressed, or hopeless: not at all 3. Trouble falling or staying asleep, or sleeping too much: not at all 4. Feeling tired or having little energy: several days 5. Poor appetite or overeating: several days 6. Feeling bad about yourself - or that you are a failure or have let yourself or your family down: not at all 7. Trouble concentrating on things, such as reading the newspaper or watching television: not at all 8. Moving or speaking so slowly that other people could have noticed. Or the opposite - being so fidgety or restless that you have been moving around a lot more than usual: not at all 9. Thoughts that you would be better off or of hurting yourself in some way: not at all Total score: 2 [address]8541 - PHQ-9 Billing: Yes Source: Developed by Drs. Bud Riley, Paulette Ruiz, Aric Ospina and colleagues, with an educational randall from [employer]. Thrive Questionnaire Date Thrive assessed: 12/10/24 I am a: Patient What is your living situation today?: I have a steady place to live Within the past 12 months, did the food you bought not last and you didn't have the money to get more?: Never true Within the past 12 months, did you worry whether your food would run out before you got money to buy more?: Never true Do you have trouble paying for medicines?: No Do you have trouble getting transportation to medical appointments?: No Do you have trouble paying your heating and electricity bill?: No Do you have trouble taking care of your child, family member or friend?: I choose not to answer this question Do you have trouble with day-to-day activities such as bathing, preparing meals, shopping, managing finances, etc.?: I choose not to answer this question Are you currently unemployed and looking for a job?: No Are you interested in more education?: No Please select the resources that you would like help with: None Currently or been in a relationship where the following occur: No concerns reported THRIVE Score: 0 JODIE-7 AMB Questionnaire JODIE-7 Date JODIE - 7 assessed: 05/07/24 Source: Developed by Drs. Bud Riley, Paulette Ruiz, Aric Ospina and colleagues, with an educational randall from [employer]. Review of Systems Const All systems reviewed & are unremarkable except as noted in HPI and below ENT Reports no additional complaints Card Reports no additional complaints Resp Reports no additional complaints GI Reports no additional complaints Reports no additional complaints Physical exam (Primary Care) Vital Signs: Last Vital Signs Temp 98.2 F 12/10/24 09:07 Pulse 75 12/10/24 09:07 Resp 20 12/10/24 09:07 BP 118/72 12/10/24 09:07 Pulse Ox 96 12/10/24 09:07 Oxygen Delivery Method Room Air 12/10/24 09:07 BMI result Body Mass Index 36.8 Tobacco/Smoking Status: Tobacco use Status Tobacco use date assessed 12/10/24 12/10/24 09:12 Patient Tobacco Use Status Former Tobacco user 12/10/24 09:12 e-Cigarette/Vaping Use Never Used 12/10/24 09:12 PHQ-9: PHQ-9 Score PHQ-9: Total score 2 12/10/24 09:20 Thrive Assessment: Date of Thrive Assessment Date Thrive assessed 12/10/24 12/10/24 09:13 Currently or been in a relationship where the following occur: No concerns reported Const General: no acute distress HENMT Head: Yes normal to inspection Mouth: Normal oral and palatal mucosa present Neck Neck: Yes supple Resp Effort & Inspection: normal respiratory effort Auscultation: clear to auscultation bilaterally Cardio Rhythm: regular rhythm Heart sounds: S1 normal heart sound present and S2 normal heart sound present GI Inspection: Yes normal to inspection Coding Level of Care Code Est Pt Level 4 (40919) Diagnoses Essential hypertension I10 Hyperlipidemia E78.5 BMI 34.0-34.9,adult Z68.34 Additional Codes PHQ-9 - 62519 - PHQ-9 Billing: Yes ([id number]) Assessment & Plan Assessment & Plan (1) Essential hypertension: Code(s): I10 - Essential (primary) hypertension Category: Medical Plan: Continue lisinopril (2) Hyperlipidemia: Comment: Lipitor was stopped because of elevated LFTs at [facility] 08/2023 Code(s): E78.5 - Hyperlipidemia, unspecified Category: Medical Plan: Continue low-cholesterol diet (3) BMI 34.0-34.9,adult: Code(s): Z68.34 - Body mass index [BMI] 34.0-34.9, adult Category: Medical Plan: Continue decreasing caloric intake increasing physical activity and Zepbound 2.5 mg weekly will be started for the 1st month to facilitate weight loss Medications: Refilled tirzepatide (weight loss) (Zepbound) 2.5 mg (0.5 mL) subcut QWEEK 4 mL 2RF
--- OUTSIDE RECORDS SUMMARY | 2024-12-10 09:53 | XMS_ITS | Clinical Summary ---
Author Organization [facility] Address [address] [place] [address] Care Team Providers Care Technical Proposal Writer Name Role Phone Amelie Carr Primary Care Provider [phone] Allergies Active Allergy Reactions Criticality Noted Date Comments Amoxicillin Rash 08/14/2023 Ciprofloxacin Unknown 08/05/2024 Phenytoin Sodium Extended Rash 08/14/2023 Erythromycin Base Unknown 04/03/2011 Generic Allergy: Erythromycin Generic Allergy: Erythromycin Hydantoins Unknown 09/23/2002 rash on dilantin Lactase Unknown 09/18/2012 Penicillins Hives,Rash Low 09/23/2002 Generic Allergy: Amoxicillin Generic Allergy: Amoxicillin rash Level of certainty: Very Certain Medications sertraline (ZOLOFT) 100 mg tablet Take 100 mg by mouth once a day. Active aspirin chewable tablet 81 mg Chew and swallow 1 tablet (81 mg total) by mouth once a day. 30 tablet 11 4 Active betamethasone, augmented, (DIPROLENE) 0.05% cream SMARTSIG:Topical Twice Daily PRN 5 Active lisinopriL (PRINIVIL,ZESTR IL) 5 mg tablet Take 5 mg by mouth once a day. Active hydrocortisone 2.5% cream SMARTSIG:Topical Twice Daily 5 Active metroNIDAZOLE (METROCREAM) 0.75 % cream Active naproxen (NAPROSYN) 500 mg tablet Take 1 tablet by mouth 2 times a day. Active calcipotriene 0.005 % topical solution APPLY TO SCALP TWICE A DAY ALTERNATING TIMES WITH TOPICAL STEROIDS Active Zepbound 5 mg/0.5 mL pen injector pen injector SMARTSI.5 Milliliter(s) SUB-Q Once a Week 5 Active predniSONE 2 mg tablet,delayed release (DR/EC) 5 Active ergocalciferol (VITAMIN D2) 1,250 mcg (50,000 unit) capsule SMARTSI Capsule(s) By Mouth Once a Week 5 Active ergocalciferol, vitamin D2, (VITAMIN D2 ORAL) 4 Active calcium citrate-vitamin D3 315 mg-6.25 mcg (250 unit) tablet SMARTSI Tablet(s) By Mouth Twice Daily Active Active Problems Problem Noted Date Diagnosed [...] 89 08/17/2023 3:04 PM EDT Temperature 36.8 C (98.3 F) 08/17/2023 3:04 PM EDT Respiratory Rate 18 08/17/2023 3:04 PM EDT Oxygen Saturation 94% 08/17/2023 3:04 PM EDT Inhaled Oxygen Concentration - - Weight 90.7 kg (200 lb) 08/14/2023 4:34 PM EDT Height 167.6 cm (5' 6 ) 08/14/2023 4:34 PM EDT Body Mass Index 32.28 08/14/2023 4:34 PM EDT Plan of Treatment Upcoming Encounters Date Type Department Care Team (Late st Contact Info) Description 08/04/2025 11:00 AM EDT Research Encounter [facility] [address] [address] Sandy Cueto MD [address] [place] [address] Health Maintenance Due Date Last Done Comments Cervical Cancer Screening 1963 Cologuard 1963 Colon Cancer Screening 1963 Colonoscopy 1963 FOBT / Fit Test 1963 HIV Screening 1963 HPV and Pap Smear 1963 Pap Smear [address] Lung Cancer Screening (Baseline) 2013 Pneumococcal Vaccine: 50+ Years (1 of 1 - PCV) 2013 Mammogram 06/23/2022 06/23/2020 COVID-19 Vaccine ( season) 2023 08/19/2023, 04/26/2023, 01/16/2023, Additional history exists Alcohol/Substance Use Screening 04/15/2024 Depression Screening and Follow-Up 04/15/2024 Social Drivers of Health Annual Screening 04/15/2024 Influenza Vaccine (#1) 2024 , 01/16/2023, 01/14/2022, Additional history exists DTaP,Tdap,and Td Vaccines (3 - Td or Tdap) 04/26/2033 04/26/2023, 09/21/2010, 07/22/2003 Zoster Vaccines Completed 04/19/2023, 01/14/2022 RSV Vaccine (60+ years old and patients) Completed 08/19/2023 Hepatitis C Screening Completed 09/07/2023 Hepatitis B Vaccines Aged Out No long er eligible based on patient's age to complete this topic Insurance HSNO/FREE CARE GR Advance Directives Documents on File Type Date Recorded Patient Ict Support Engineer Expl anation Health Care Proxy 08/19/2023 8:51 AM 2023 * Full Code (Latest Code Status on File) Date Activated Date Inactivated Comments 08/15/2023 12:07 PM 08/17/2023 7:17 PM Healthcare Agents on File Name Relationship Healthcare Agent [facility] Communication Ana Jean Baptiste Sister Health Care Agent Care Teams Technical Proposal Writer Relationship Specialty Start Date End Date Amelie Carr [address] [place] [address] PCP - General Internal Medicine 08/13/23
--- OUTSIDE RECORDS SUMMARY | 2024-12-10 09:53 | XMS_ITS | Encounter Summary ---
Author Organization [facility] Address [address] [facility] [address] [place] [address] Phone Care Team Providers Care Tube Cutter Name Role Phone Pcp, Unknown Primary Care Provider Amelie Mijares MD Primary Care Provider [phone] Encounter Details Date Type Department Care Team (Late st Contact Info) Description 09/07/2023 Ophth Exam [facility] Emergency Department [address] [place] [address] Alisha Cao, RADHA [address] [place] [address] [email or web address] Social History Tobacco Use Types Packs/Day Years [...] PM EDT documented as of this encounter Functional Status * Calculated C-SSRS Risk Score (Lifetime/Recent) Answer Date of Assessment Author No Risk Indicated 09/09/2023 6:00 PM EDT Romelia Caal RN * [place]eral Suicide Severity Rating Scale (Screener/Recent Self-Report) Question Answer Date of Assessment Author 1. Wish to be (Past 1 Month) No 024 6:00 PM EDT Romelia Caal RN 2. Non-Specific Active Suici shane Thoughts (Past 1 Month) No 09/09/2023 6:00 PM EDT Romelia Caal RN 6. Suicidal Behavior (Lifetime) No 6:00 PM EDT Romelia Caal RN documented as of this encounter Plan of Treatment Upcoming Encounters Date Type Department Care Team (Late st Contact Info) Description 04/21/2025 10:00 AM EST Office Visit [facility] Rheumatology [address], 4th Floor, [address] [place] [address] Bobby Maloney MD [address] [place] [address] [email or web address] documented as of this encounter Visit Diagnoses Not on filedocumented in this encounter Care Teams Tube Cutter Relationship Specialty Start Date End Date Pcp, Unknown PCP - General 09/07/23 09/22/23 Amelie Carr MD [address] [place] [address] PCP - General Internal Medicine 09/23/23 documented as of this encounter Additional Source Comments The information contained in this document represents components of the legal health record. It is not the complete legal health record.[facility]
--- OUTSIDE RECORDS SUMMARY | 2024-12-10 09:53 | XMS_ITS | Encounter Summary ---
Author Organization [facility] Address [address] [place] [address] [place] [address] Phone Care Team Providers Care Yarn Dry Room Worker Name Role Phone Pcp, Unknown Primary Care Provider Amelie Mijares MD Primary Care Provider Encounter Details Date Type Department Care Team (Late st Contact Info) Description 09/08/2023 Procedure Pass [facility] Imaging, [address] [facility], 2nd [place] [address] Social History Tobacco Use Types Packs/Day Years [...] 6:00 PM EDT Romelia Caal RN * [place] Suicide Severity Rating Scale (Screener/Recent Self-Report) Question [...] Description 04/21/2025 10:00 AM EST Office Visit [facility] Rheumatology [address], 4[address] Floor, [address] [place] [address] Bobby Maloney MD [address] [place] [address] [email or web address] [email or web address] documented as of this encounter Visit Diagnoses Not on filedocumented in this encounter Care Teams Yarn Dry Room Worker Relationship Specialty Start Date End Date Pcp, Unknown PCP - General 09/07/23 09/22/23 Amelie Carr MD [address] [facility] [place] [address] PCP - General Internal Medicine 09/23/23 documented as of this encounter Additional Source Comments The information contained in this document represents components of the legal health record. It is not the complete legal health record.[facility]
--- OUTSIDE RECORDS SUMMARY | 2024-12-10 09:53 | XMS_ITS | Encounter Summary ---
Author Organization [facility] Address [address] [place] [address] [place] [address] Phone Care Team Providers Care Clearance Rep Name Role Phone Pcp, Unknown Primary Care Provider Amelie Mijares MD Primary Care Provider [phone] Encounter Details Date Type Department Care Team (Late st Contact Info) Description 09/07/2023 Procedure Pass [facility] Emergency Imaging, [address], [address] 1 [place] [address] Social History Tobacco Use Types Packs/Day Years [...] 6:00 PM EDT Romelia Caal RN * [place] Suicide Severity Rating Scale (Screener/Recent Self-Report) Question [...] Description 04/21/2025 10:00 AM EST Office Visit [facility] Rheumatology [address], 4[address] Floor, [address] [place] [address] Bobby Maloney MD [address] [place] [address] [email or web address] documented as of this encounter Visit Diagnoses Not on filedocumented in this encounter Care Teams Clearance Rep Relationship Specialty Start Date End Date Pcp, Unknown PCP - General 09/07/23 09/22/23 Amelie Carr MD [address] [place] [address] PCP - General Internal Medicine 09/23/23 documented as of this encounter Additional Source Comments The information contained in this document represents components of the legal health record. It is not the complete legal health record.[facility]
--- OUTSIDE RECORDS SUMMARY | 2024-12-10 09:53 | XMS_ITS | Encounter Summary ---
Author Organization [facility] Address [address] [employer] [facility] [address] [place] [address] Phone Care Team Providers Care Railway Switch Operator Name Role Phone Pcp, Unknown Primary Care Provider Amelie Mijares MD Primary Care Provider [phone] Encounter Details Date Type Department Care Team (Late st Contact Info) Description 09/08/2023 Documentation [facility] [address] [facility] 9th [place] [address] Layo Gilliam MD [address] [place] [phone] [email or web address] Social History Tobacco Use Types Packs/Day Years [...] 6:00 PM EDT Romelia Caal RN * [place] Suicide Severity Rating Scale (Screener/Recent Self-Report) Question [...] Description 04/21/2025 10:00 AM EST Office Visit [facility] Rheumatology [address], 4th Floor, [address] [place] [address] Bobby Maloney MD [address] [address] [email or web address] documented as of this encounter Visit Diagnoses Not on filedocumented in this encounter Care Teams Railway Switch Operator Relationship Specialty Start Date End Date Pcp, Unknown PCP - General 09/07/23 09/22/23 Amelie Carr MD [facility] [place] [address] PCP - General Internal Medicine 09/23/23 documented as of this encounter Additional Source Comments The information contained in this document represents components of the legal health record. It is not the complete legal health record.[facility]
--- OUTSIDE RECORDS SUMMARY | 2024-12-10 09:53 | XMS_ITS | Encounter Summary ---
Author Organization [facility] Address [address] [place] [address] [place] [address] Phone Care Team Providers Care Harbor Boat Pilot Name Role Phone Pcp, Unknown Primary Care Provider Amelie Mijares MD Primary Care Provider [phone] Encounter Details Date Type Department Care Team (Late st Contact Info) Description 09/07/[address] [facility] Emergency Radiology, Main [address], Floor 1 [place] [address] Social History Tobacco Use Types Packs/Day Years [...] 6:00 PM EDT Romelia Caal RN * [place] Suicide Severity Rating Scale (Screener/Recent Self-Report) Question [...] Description 04/21/2025 10:00 AM EST Office Visit [facility] Rheumatology [address], 4[address] Floor, [address] [place] [address] Bobby Maloney MD [address] [place] [id number] [email or web address] [email or web address] documented as of this encounter Visit Diagnoses Not on filedocumented in this encounter Care Teams Harbor Boat Pilot Relationship Specialty Start Date End Date Pcp, Unknown PCP - General 09/07/23 09/22/23 Amelie Carr MD [address] [facility] [place] [address] PCP - General Internal Medicine 09/23/23 documented as of this encounter Additional Source Comments The information contained in this document represents components of the legal health record. It is not the complete legal health record.[facility]
--- OUTSIDE RECORDS SUMMARY | 2024-12-10 09:53 | XMS_ITS | Encounter Summary ---
Author Organization [facility] Address [address] [employer] [facility] [address] [place] [address] Phone Care Team Providers Care Public Transit Bus Driver Name Role Phone Pcp, Unknown Primary Care Provider Amelie Mijares MD Primary Care Provider [phone] Encounter Details Date Type Department Care Team (Late st Contact Info) Description 09/11/2023 Ophth Exam [facility] Consult from [facility] [address] [place] [address] Abdullahi Abrams MD [address] [place] [address] [email or web address] Social History Tobacco Use Types Packs/Day [...] PM EDT documented as of this encounter Plan of Treatment Upcoming Encounters Date Type Department Care Team (Late st Contact Info) Description 04/21/2025 10:00 AM EST Office Visit [facility] Rheumatology [address], 4th Floor, [address] [place] [address] Bobby Maloney MD [address] [place] [phone] @[email or web address] documented as of this encounter Visit Diagnoses Not on filedocumented in this encounter Care Teams Public Transit Bus Driver Relationship Specialty Start Date End Date Pcp, Unknown PCP - General 09/07/23 09/22/23 Amelie Carr MD [address] [facility] [place] [address] PCP - General Internal Medicine 09/23/23 documented as of this encounter Additional Source Comments The information contained in this document represents components of the legal health record. It is not the complete legal health record.[facility]
--- OUTSIDE RECORDS SUMMARY | 2024-12-10 09:53 | XMS_ITS | Encounter Summary ---
Author Organization [facility] Address [address] [place] [address] [place] [address] Phone Care Team Providers Care Linux Unix Engineer Name Role Phone Pcp, Unknown Primary Care Provider Amelie Mijares MD Primary Care Provider [phone] Encounter Details Date Type Department Care Team (Late st Contact Info) Description 09/07/2023 Procedure Pass [facility] Emergency Imaging, [address], [address] 1 [place] [address] Social History Tobacco Use Types Packs/Day Years [...] 6:00 PM EDT Romelia Caal RN * [place] Suicide Severity Rating Scale (Screener/Recent Self-Report) Question [...] Description 04/21/2025 10:00 AM EST Office Visit [facility] Rheumatology [address], 4th Floor, [address] [place] [address] Bobby Maloney MD [address] [place] [phone] @[email or web address] [email or web address] documented as of this encounter Visit Diagnoses Not on filedocumented in this encounter Care Teams Linux Unix Engineer Relationship Specialty Start Date End Date Pcp, Unknown PCP - General 09/07/23 09/22/23 Amelie Carr MD [address] [facility] [place] [address] PCP - General Internal Medicine 09/23/23 documented as of this encounter Additional Source Comments The information contained in this document represents components of the legal health record. It is not the complete legal health record.[facility]
--- OUTSIDE RECORDS SUMMARY | 2024-12-10 09:53 | XMS_ITS | Encounter Summary ---
Author Organization [facility] Address [address] [place] [address] [place] [address] Phone Care Team Providers Care Envelope Sealing Machine Operator Name Role Phone Pcp, Unknown Primary Care Provider Amelie Mijares MD Primary Care Provider [phone] Encounter Details Date Type Department Care Team (Late st Contact Info) Description 09/10/2023 Procedure Pass [facility] [address] [place] [address] Social History Tobacco Use Types Packs/Day Years [...] AM EST Office Visit [facility] [place] [address], 4[address], [address] [place] [address] Bobby Maloney MD [address] [place] [phone] [email or web address] documented as of this encounter Visit Diagnoses Not on filedocumented in this encounter Care Teams Envelope Sealing Machine Operator Relationship Specialty Start Date End Date Pcp, Unknown PCP - General 09/07/23 09/22/23 Amelie Carr MD [address] [facility] [address] PCP - General Internal Medicine 09/23/23 documented as of this encounter Additional Source Comments The information contained in this document represents components of the legal health record. It is not the complete legal health record.[facility]
--- OUTSIDE RECORDS SUMMARY | 2024-12-10 09:54 | XMS_ITS | Clinical Summary ---
Author Organization [facility] Address Critical access hospital [place] [facility] [address] [place] [address] Phone Care Team Providers Care Retail Marketing Specialist Name Role Phone Amelie Carr MD Primary Care Provider [phone] Allergies Active Allergy Reactions Criticality Noted Date Comments Amoxicillin Rash Low 04/03/2011 Generic Allergy: Amoxicillin Erythromycin Base Unknown 04/03/2011 Generic Allergy: Erythromycin Lactase Unknown 09/18/2012 Penicillins Rash 03/21/2007 Phenytoin Rash,Other (See Comments) Low 04/03/2011 DILANTIN , Generic Allergy: Phenytoin Medications bacillus coagulans-inuli n 1 billion-250 cell-mg Cap Take 250 mg by mouth daily. Active aspirin 81 mg chewable tablet Take 81 mg by mouth. Takes as needed for headache 4 Active lisinopril (PRINIVIL,ZESTR IL) 20 MG tablet Take 1 tablet by mouth daily. Active sertraline (ZOLOFT) 100 MG tablet TAKE 1 TABLET BY MOUTH EVERY DAY FOR 30 DAYS Active calcium citrate-vitamin D3 315 mg-6.25 mcg (250 unit) per tablet Take 1 tablet by mouth 2 (two) times a day with meals. Please take while on steroids 180 tablet 1 5 11/17/19 25 Active Problems Problem Noted Date Diagnosed Date Disorder of bone, unspecified 02/13/2024 Acute kidney injury 09/08/2023 Assessment & Plan (09/09/2023 11:47 AM EDT): #Hyponatremia, resolved #ELVIA, resolved Patient reports nausea and poor PO prior to presentation. Initial Cr elevated to 1.4 -> 0.85 after receiving IVF, suspect pre-renal hypovolemic picture. Na notably decreased to 130 after IVF, now resolved. Urine lytes do seem more suggestive of hypovolemic hypoNa but query whether SIADH physiology iso pain could have contributed at the time. Of note has a history of severe R sided pyelonephritis as a child resulting in scarring seen on imaging. - S/p 2L IVF since presentation - Trend BMP Elevated LFTs 09/08/2023 Assessment & Plan (09/09/2023 11:53 AM EDT): #LFTs abnormalities Patient presents with elevated AST/ALT/ALP and Tbili. INR also mildly elevated but patient had NO change in mental status to suggest liver failure. R factor suggests mixed hepatocellular/cholestatic injury. Patient had been taking tylenol prior to admission around 1g q6h with last dose around 10am on 09/06 prior to admission. Tylenol level of 15.1 per nomograms would not require treatment. CTAP was obtained without evidence of gallstones leading to cholestasis. Patient has started several new medications including atorvastatin and wegovy (less likely per livertox. Sending diagnostic workup with CK and send autoimmune markers for autoimmune liver disease given elevated inflammatory markers. Overall history suspicious for DILI iso starting atorvastatin versus mild alcoholic hepatitis though patient reports only drinking 2 - 4oz drinks of alcohol daily. No history of withdrawal. LFTs thus far downtrending with holding potential offending medications. If worsening LFTs will plan to consult hepatology. - Trend LFTs/INR - Monitor mental status - CK wnl - HIV negative. Hepatitis serologies negative - f/u PETH to quantify EtOH consumption. - RUQUS wnl - check GREGORIO, AMA, ASMA, Immunoglobulins, and anti-LKM - hold atorvastatin - hold wegovy Hypertension 09/08/2023 Assessment & Plan (09/09/2023 11:55 AM EDT): #HTN: -holding lisinopril given relative hypotension on presentation. Given improvement in ELVIA and Bps thus far, likely can resume with holding parameters. Will hold off 09/08 given tentative plan for temporal artery biopsy w/ anesthesia. Anxiety 09/08/2023 Assessment & Plan (09/08/2023 2:29 PM EDT): #Anxiety: - continue sertraline - previously prescribed lorazepam but none recently. Visual changes 09/07/2023 Assessment & Plan (09/09/2023 11:55 AM EDT): #Vision loss OD #concern for GCA Patient presented with ongoing vision changes on the right and headache, with reported fevers and nausea. Patient had broad work up at [facility] with MRI brain/orbit with no active lesions and CTA head and neck without any evidence of stenosis. 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 At that time, inflammatory markers were within normal limits. Patient presents now with elevated inflammatory markers and headache which raises high suspicion for giant cell arteritis. Rheumatology consulted and empirically initiated on methylpred with plan for temporal artery biopsy as add on with gen surg as early as 09/08 for diagnostic confirmation. Reports resolution of headache on examination currently. Diagnostics: - Appreciate neuro-ophthalmology, rheumatology, and general surgery recs - Ordered for temporal artery ultrasound - earliest on Saturday - not techs over the holiday weekend. Discussed with rheumatology 09/08 AM, okay to proceed directly with temporal artery biopsy as general surgery has planned as potential add on for 09/08 to aid in advancing care without delays - Inpatient ophthalmology consult placed, reached out to c/s service to clarify if team will continue to follow for eye exams that may help guide steroid course - PET/CT for vasculitis ordered (scheduling after long weekend) - Vitamin D low at 10, Syphilis screen negative, F/u TB spot - Trend CRP/ESR - Planned for outpatient TTE and 30-day cardiac event monitor for completion of possible stroke work up from OSH. Will monitor on tele here. - Ensure outpatient ophthalmology, rheumatology, and neurology follow up on discharge Therapeutics: - Started on 1g IV methylprednisolone (day 1: 09/07 - 09/09) per rheum recs empirically, followed by transition to prednisone 60mg daily starting 09/10 - Started on calcium- Vitamin D BID and omeprazole 20mg daily for ppx while on high dose steroids. - Continue aspirin 81mg daily - holding atorvastatin as below (LFTs) Encounters Date Type Department Care Team Description 12/09/2024 3:00 PM EDT Office Visit [facility] [place] [place] Rheumatology [address], [address], [address] [place] [address] Bobby Maloney MD Pain in joints (Primary Dx) 11/16/2024 4:00 PM EDT Office Visit [facility] General Neurology [address] [facility] [facility], [address] [place] [address] Natan Braden MD Temporal arteritis syndrome (Primary Dx); Ulnar neuropathy of both upper extremities 11/10/2024 12:00 PM EDT - 11/10/2024 11:59 PM EDT Hospital Encounter [facility] [address] [place] [phone] Bobby Maloney MD Discharge Disposition: Home or Self Care 11/10/2024 Orders Only [facility] Specimen Processing [address] [place] [address] Amelie Carr MD 11/09/2024 Telephone [facility] [place] [place] Rheumatology [address], [address], [address] [place] [phone] Bobby Maloney MD 09/25/2024 Telephone [facility] [place] [place] Rheumatology [address], [address], [address] [place] [address] Bobby Maloney MD 09/23/2024 Orders Only [facility] [place] [place] Rheumatology [address], [address], [address] [place] [address] Tatiana Fontenot MD 09/21/2024 Orders Only [facility] [place] [place] Rheumatology [address], [address], [address] [place] [address] Bobby Maloney MD 09/21/2024 Telephone [facility] [place] [place] Rheumatology [address], [address], [address] [place] [address] Kristina Herr RN 09/16/2024 Telephone [facility] [place] [place] Rheumatology [address], [address], [address] [place] [address] Bobby Maloney MD 09/16/2024 Orders Only [facility] [place] [place] Rheumatology [place] [address] [facility], [address], [address] [place] [address] Bobby Maloney MD Giant cell arteritis (Primary Dx) 09/15/2024 Telephone [facility] [place] [place] Rheumatology [place] [address] [facility], 4th Floor, [address] [place] [address] Kristina Herr RN from Last 3 Months Social History Tobacco Use Types Packs/Day Years Used Date Smoking Tobacco: Light Smoker Smokeless Tobacco: Never Tobacco Cessation:Ready to Q uit: Not Asked; Counseling Given: Not Answered Comments:social Education Answer Date Recorded Are you [...] ecorded Are you denied basic needs [facility] as food, clothing, or medical care? No 09/09/2023 In the past 12 months have y ou been in a relationship with a person who hurts, threatens, or tries to control you? No 09/09/2023 Are you denied basic needs [facility] as food, clothing, or medical care? No [...] Orientation Straight 09/02/2019 3: 33 PM EDT Last Filed Vital Signs Vital Sign Reading Time Taken Comments Blood Pressure 124/77 12/09/2024 3:09 PM EDT Pulse 102 12/09/2024 3:09 PM EDT Temperature 35.8 C (96.5 F) 12/09/2024 3:09 PM EDT Respiratory Rate 18 09/11/2023 11:33 AM EDT Oxygen Saturation 96% 12/09/2024 3:09 PM EDT Inhaled Oxygen Concentration - - Weight 102.1 kg (225 lb) 12/09/2024 3:09 PM EDT Height 167.6 cm (5' 6 ) 12/09/2024 3:09 PM EDT Body Mass Index 36.32 12/09/2024 3:09 PM EDT Plan of Treatment Upcoming Encounters Date Type Department Care Team (Late st Contact Info) Description 04/21/2025 10:00 AM EST Office Visit [facility] [place] [place] Rheumatology [address], [address], [address] [place] [address] Bobby Maloney MD [address] [place] [phone] [email or web address] Health Maintenance Due Date Last Done Comments DEPRESSION SCREENING 1975 SMOKING Hx and SMOKELESS TOBACCO SCREENING 1976 PNEUMOCOCCAL VACCINES (50+ years) (1 of 2 - PCV) 1982 PAP SMEAR 1984 COLOGUARD 2008 COLONOSCOPY 2008 COLORECTAL CANCER SCREENING 2008 FIT TEST 2008 FOBT 2008 SIGMOIDOSCOPY 2008 VIRTUAL COLONOSCOPY 2008 MAMMOGRAM 06/23/2022 06/23/2020, 06/13, 11/27/2018, Additional history exists COVID-19 VACCINE ( season) 2023 08/19/2023, 04/26/2023, 01/16/2023, Additional history exists INFLUENZA VACCINE (#1) 2024 , 01/14/2022, 01/15/2021, Additional history exists CREATININE LEVEL 05/20/2025 05/20/2024, , 10/16/2023, Additional history exists POTASSIUM LEVEL 05/20/2025 05/20/2024, 11/14, 09/11/2023, Additional history exists BLOOD PRESSURE 06/11/2025 12/09/2024 SCREENING FOR DIABETES 05/20/2027 05/20/2024, 2023 LIPID PANEL 08/16/2028 08/17/2023, 05/0 07/2023, 05/01/2016 Adult Td,Tdap Booster 04/26/2033 04/26/2023, 011 ZOSTER VACCINES Completed 04/19/2023, 01/14/2022 RSV VACCINE Completed 08/19/2023 HEPATITIS C SCREENING Completed 09/07/2023 HIV ONE-TIME SCREENING (18-65 YEARS) Completed 09/09/2023 HEPATITIS A VACCINES Aged Out No long er eligible based on patient's age to complete this topic HIB VACCINES Aged Out No longer eligi ble based on patient's age to complete this topic MENINGOCOCCAL VACCINES (ACWY) Aged Out No longer eligible based on patient's age to complete this topic MENINGOCOCCAL VACCINES (B) Aged Out N o longer eligible based on patient's age to complete this topic Medical Devices Not on file Procedures Procedure Name Priority Date/Time Associated Diagnosis Comments SEDIMENTATION RATE (ESR) Routine 11/10/2024 12:00 PM EDT Giant cell arteritis C-REACTIVE PROTEIN Routine 11/10/2024 12 :00 PM EDT Giant cell arteritis OUTSIDE LAB Routine 09/23/2024 2:05 PM EDT COMPREHENSIVE METABOLIC PANEL Routine 05/20/2024 3:36 PM EST Giant cell arteritis HEPATITIS C ANTIBODY, QUALITATIVE STAT 09/07/2023 7:15 PM EDT from Last 3 Months or Most Recently Relevant to Health Maintenance Results * Sedimentation rate (ESR) (11/10/2024 12:00 PM EDT) ESR 20 0 - 30 mm/h [facility] Blood 11/10/2024 12:0 0 PM EDT 11/10/2024 12:02 PM EDT Bobby Swain MD LAB BLOOD ORDERABLES Final Re sult Performing Organization Address [facility] Co de Phone Number [address] [address] * (ABNORMAL) C-Reactive Protein (11/10/2024 12:00 PM EDT) C REACTIVE PROTEIN 4.4(H) 0.0 - 4.0 mg/L [facility] Blood 11/10/2024 12:0 0 PM EDT 11/10/2024 12:02 PM EDT Bobby Swain MD LAB BLOOD ORDERABLES Final Re sult Performing Organization Address [facility] de Phone Number [address] [address] * (ABNORMAL) Outside Lab (09/23/2024 2:05 PM EDT) [facility] Provider LAB BLOOD ORDERABLES Nai l Result * (ABNORMAL) Comprehensive metabolic panel (05/20/2024 3:36 PM EST) SODIUM 141 135 - 145 mmol/L [facility] POTASSIUM 4.1 3.4 - 5.0 mmol/L [facility] CHLORIDE 104 98 - 108 mmol/L [facility] CO2 26 23 - 32 mmol/L [facility] BUN 17 8 - 25 mg/dL [facility] CREATININE 0.90 0.50 - 1.00 mg/dL [facility] GLUCOSE 93 70 - 110 mg/dL [facility] ALBUMIN 4.2 3.3 - 5.0 g/dL [facility] TOTAL PROTEIN 6.6 6.0 - 8.3 g/dL [facility] CALCIUM 8.8 8.5 - 10.5 mg/dL [facility] ALKALINE PHOSPHATASE 130(H) 30 - 100 U/L [facility] TOTAL BILIRUBIN 0.3 0.0 - 1.0 mg/dL [facility] AST 25 9 - 32 U/L [facility] ALT 22 7 - 33 U/L [facility] GLOBULIN 2.4 1.9 - 4.1 g/dL [facility] EGFR 73 >59 mL/min/1. 73m2 [facility] Comment:Estimated glomerular filtration rate calculated using the CKD-EPI refit equation. ANION GAP 11 3 - 17 mmol/L [facility] 05/20/2024 3:36 PM EST 05/20/2024 4:39 PM EST us Bobby Swain MD LAB BLOOD ORDERABLES Final Re sult [address] [address] * Hepatitis C antibody, qualitative (09/07/2023 7:15 PM EDT) HCV ANTIBODY Negative Negative [facility] Comment:Antibodies to HCV no t detected. Does not exclude the possibility of exposure to HCV. Blood 09/07/2023 7:15 PM EDT 09/07/2023 7:32 PM EDT us Edil Howell MD LAB BLOOD ORDERABLES Final Resul t [address] [address] from Last 3 Months or Most Recently Relevant to Health Maintenance Insurance [facility] [employer] [place] [address] [address] [place] [address] ACO [facility] [employer]CO [facility] Advance Directives For more information, please contact: [phone] (9AM - 5PM [facility]idgett/[facility], Saturday-Saturday) * Full Code (Latest Code Status on File) Date Activated Date Inactivated Comments 09/08/2023 12:13 PM Question Answer Comments Code Status Confirmed With: Other (specify below ) Code Discussion Comments: presumed Care Teams Retail Marketing Specialist Relationship Specialty Start Date End Date Amelie Carr MD [facility] [place] [address] PCP - General Internal Medicine 09/23/23 Additional Source Comments The information contained in this document represents components of the legal health record. It is not the complete legal health record.[facility]
--- OUTSIDE RECORDS SUMMARY | 2024-12-10 09:54 | XMS_ITS | Encounter Summary ---
Author Organization [facility] Address [address] [facility] [address] [place] [phone] Phone Care Team Providers Care Doughnut Maker Name Role Phone Amelie Carr MD Primary Care Provider [phone] Encounter Details Date Type Department Care Team (Late st Contact Info) Description 11/10/2024 Orders Only [facility] Specimen Processing [address] [place] [address] Amelie Carr MD [address] [place] [address] Social History Tobacco Use Types Packs/Day Years [...] Description 04/21/2025 10:00 AM EST Office Visit [facility] Rheumatology [address], [address], [address] [place] [address] Bobby Maloney MD [address] [place] [phone] [email or web address] documented as of this encounter Visit Diagnoses Not on filedocumented in this encounter Care Teams Doughnut Maker Relationship Specialty Start Date End Date Amelie Carr MD [address] [place] [address] PCP - General Internal Medicine 09/23/23 documented as of this encounter Additional Source Comments The information contained in this document represents components of the legal health record. It is not the complete legal health record.[facility]
== END 2024-12-10 09:42 | disposition home or self-care (01) ==
LOC: HO.HMCC 09:02
PROVIDERS: PCP Internal Medicine; Visit Provider Internal Medicine
DX: I10 Essential (primary) hypertension (principal); E78.5 Hyperlipidemia, unspecified; Z68.34 Body mass index [BMI] 34.0-34.9, adult

== ENCOUNTER → 2024-12-10 09:01 | Outpatient (BNVA) | payer OTHER, SELFPAY | PROVIDERS: PCP Internal Medicine; Visit Provider Internal Medicine | DX: I10 Essential (primary) hypertension (principal); E78.5 Hyperlipidemia, unspecified; Z79.899 Other long term (current) drug therapy | CPT/HCPCS: 96127; 99212 ==

== ENCOUNTER 2025-02-12 08:37 | Outpatient (REF) | payer OTHER, SELFPAY ==
--- OUTSIDE RECORDS SUMMARY | 2025-02-12 10:51 | XMS_ITS | Encounter Summary ---
Author Organization [facility] Address [address] [place] [address] [address] Phone Care Team Providers Care Associate Scientist Name Role Phone Pcp, Unknown Primary Care Provider Amelie Mijares MD Primary Care Provider [phone] Encounter Details Date Type Department Care Team (Late st Contact Info) Description 09/07/2023 Procedure Pass [facility] Emergency Radiology, Main [address], [address] [place] [address] Social History Tobacco Use Types Packs/Day Years [...] 6:00 PM EDT Romelia Caal RN * Humphreys Suicide Severity Rating Scale (Screener/Recent Self-Report) Question [...] [facility] [place] [address], 4[address] Floor, [address] [place] [address] Bobby Maloney MD [address] [place] [address] [address] [place] [address] [email or web address] 05/25/2025 10:30 AM EST Office Visit [facility] General Neurology [address] [place] [address], [address] [place] [address] Natan Braden MD [address] [place] [phone] [email or web address] documented as of this encounter Visit Diagnoses Not on filedocumented in this encounter Care Teams Associate Scientist Relationship Specialty Start Date End Date Pcp, Unknown PCP - General 09/07/23 09/22/23 Amelie Carr MD [address] [place] [address] PCP - General Internal Medicine 09/23/23 documented as of this encounter Additional Source Comments The information contained in this document represents components of the legal health record. It is not the complete legal health record.[facility]
--- OUTSIDE RECORDS SUMMARY | 2025-02-12 10:51 | XMS_ITS | Encounter Summary ---
Author Organization [facility] Address [address] [place] [address] [place] [address] Phone Care Team Providers Care Court Assistant Name Role Phone Pcp, Unknown Primary Care Provider Amelie Mijares MD Primary Care Provider [phone] Encounter Details Date Type Department Care Team (Late st Contact Info) Description 09/10/[address] [facility] PERIOPERATIVE DEPT [address] [place] [address] Social History Tobacco Use Types [...] 04/21/2025 10:00 AM EST Office Visit [facility] Rheumatology [place] [address] [facility], 4th Floor, [address] [place] [address] Bobby Maloney MD [address] [facility] [address] [place] [address] [email or web address] 05/25/2025 10:30 AM EST Office Visit [facility] Neurology [address] [facility], [address] [place] [address] Natan Braden MD [address] [place] [address] [address] [place] [address] [email or web address] documented as of this encounter Visit Diagnoses Not on filedocumented in this encounter Care Teams Court Assistant Relationship Specialty Start Date End Date Pcp, Unknown PCP - General 09/07/23 09/22/23 Amelie Carr MD [address] [place] [address] PCP - General Internal Medicine 09/23/23 documented as of this encounter Additional Source Comments The information contained in this document represents components of the legal health record. It is not the complete legal health record.[facility]
--- OUTSIDE RECORDS SUMMARY | 2025-02-12 10:51 | XMS_ITS | Clinical Summary ---
Author Organization [facility] Address [address] [place] [address] [place] [address] Phone Care Team Providers Care Cork Tile Floor Layer Name Role Phone Amelie Carr MD Primary Care Provider [phone] Allergies Active Allergy Reactions Criticality Noted Date [...] by mouth. Takes as needed for headache 08/18/2023 Active lisinopril (PRINIVIL,ZESTR IL) 20 MG tablet Take 1 tablet by mouth daily. Active sertraline (ZOLOFT) 100 MG tablet TAKE 1 TABLET BY MOUTH EVERY DAY FOR 30 DAYS Active calcium citrate-vitamin D3 315 mg-6.25 mcg (250 unit) per tablet Take 1 tablet by mouth 2 (two) times a day with meals. Please take while on steroids 180 tablet 3 12/10/2024 12/06/19 26 Active Active Problems Problem Noted Date Diagnosed [...] nausea. Patient had broad work up at [facility] with MRI brain/orbit with no active lesions [...] Encounters Date Type Department Care Team Description 12/16/2024 Telephone [facility] Rheumatology [address], 4th Floor, [address] [place] [address] Kristina Herr RN 12/11/2024 9:28 AM EDT - 12/11/2024 11:59 PM EDT Hospital Encounter [address] [address] Bobby Maloney MD Discharge Disposition: Home or Self Care 12/11/2024 9:28 AM EDT - 12/11/2024 11:59 PM EDT Hospital Encounter [address] [address] Bobby Maloney MD Discharge Disposition: Home or Self Care 12/11/2024 9:28 AM EDT - 12/11/2024 11:59 PM EDT Hospital Encounter [address] [address] Bobby Maloney MD Discharge Disposition: Home or Self Care 12/11/2024 Ancillary Orders [facility] Rheumatology [address], 4[address] Floor, [address] [place] [address] Bobby Maloney MD Giant cell arteritis (Primary Dx); Pain in joints 12/11/2024 Ancillary Orders [facility] Rheumatology [address], 4th Floor, [address] [place] [address] Bobby Maloney MD Giant cell arteritis (Primary Dx); Pain in joints 12/09/2024 3:00 PM EDT Office Visit [facility] Rheumatology [address], 4[address], [address] [place] [address] Bobby Maloney MD Giant cell arteritis (Primary Dx); Pain in joints 11/16/2024 4:00 PM EDT Office Visit [facility] [address] [facility], [address] [place] [address] Natan Braden MD Temporal arteritis syndrome (Primary Dx); Ulnar neuropathy of both upper extremities from Last 3 Months Social History Tobacco [...] [facility] Rheumatology [place] [address] [facility], 4th Floor, [address] [place] [address] Bobby Maloney MD [address] [facility] [address] [place] [address] @[facility] 05/25/2025 10:30 AM EST Office Visit [facility] General Neurology [address] [facility], [address] [place] [address] Natan Braden MD [address] [place] [address] 720 [place] [address] [email or web address] Health Maintenance Due Date Last Done Comments DEPRESSION SCREENING 1975 SMOKING Hx and SMOKELESS TOBACCO SCREENING 1976 PNEUMOCOCCAL VACCINES (50+ years) (1 of 2 - PCV) 1982 PAP SMEAR 1984 COLOGUARD 2008 COLONOSCOPY 2008 COLORECTAL CANCER SCREENING 2008 FIT TEST 2008 FOBT 2008 SIGMOIDOSCOPY 2008 VIRTUAL COLONOSCOPY 2008 MAMMOGRAM 06/23/2022 06/23/2020, 06/13, 11/27/2018, Additional history exists INFLUENZA VACCINE (#1) 2024 , 01/14/2022, 01/15/2021, Additional history exists COVID-19 VACCINE ( season) 2024 08/19/2023, 04/26/2023, 01/16/2023, Additional history exists CREATININE LEVEL 05/20/2025 05/20/2024, [...] Procedure Name Priority Date/Time Associated Diagnosis Comments XR HAND 3 OR MORE VIEWS (BILATERAL) Routine 12/11/2024 9:48 AM EDT Pain in joints XR KNEE 1-2 VIEWS (BILATERAL) Routine 12/11/2024 9:48 AM EDT Pain in joints BD DXA MONITORING Routine 12/10/2024 10: 29 AM EDT Giant cell arteritis COMPREHENSIVE METABOLIC PANEL Routine 05/20/2024 3:36 PM EST Giant cell arteritis HEPATITIS C ANTIBODY, QUALITATIVE STAT 09/07/2023 7:15 PM EDT from Last 3 Months or Most Recently Relevant to Health Maintenance Results * XR HAND 3 OR MORE VIEWS (BILATERAL) (12/11/2024 9:48 AM EDT) Anatomical Region Laterality Modality Hand Left Computed Radiogr aphy 12/11/2024 8:30 PM EDT Impressions 12/11/2024 8:31 PM EDT Normal joint spaces. Narrative 12/11/2024 8:31 PM EDT XR HAND 3 OR MORE VIEWS (BILATERAL) Referring clinician's provided indication for this examination in Epic: *joint pain, hand COMPARISON: None FINDINGS: Left hand: No acute fracture or dislocation. No soft tissue swelling. Normal joint spaces. No erosion. Right hand: No acute fracture or dislocation. No soft tissue swelling. Normal joint spaces. No erosion. Procedure Note Veronique Gonzalez MD - 12/11/2024 XR HAND 3 OR MORE VIEWS (BILATERAL) Referring clinician's provided indication for this examination in Epic:*joint pain, hand COMPARISON: None FINDINGS: Left hand: No acute fracture or dislocation. No soft tissue swelling.Normal joint spaces. No erosion. Right hand: No acute fracture or dislocation. No soft tissue swelling.Normal joint spaces. No erosion. IMPRESSION: Normal joint spaces. Bobby Swain MD IMG XR UPPER EXTREMITY Final Result * XR KNEE 1-2 VIEWS (BILATERAL) (12/11/2024 9:48 AM EDT) Anatomical Region Laterality Modality Knee Bilateral, Knee Right, Knee Left Computed Radiography 12/11/2024 8:25 PM EDT Impressions 12/11/2024 8:29 PM EDT Normal tibiofemoral joint spaces. Narrative 12/11/2024 8:29 PM EDT XR KNEE 1-2 VIEWS (BILATERAL) Referring clinician's provided indication for this examination in Epic: Pain COMPARISON: None FINDINGS: Left knee: Normal tibiofemoral joint spaces. Right knee: Normal tibiofemoral joint spaces. Procedure Note Veronique Gonzalez MD - 12/11/2024 XR KNEE 1-2 VIEWS (BILATERAL) Referring clinician's provided indication for this examination in Epic:Pain COMPARISON: None FINDINGS: Left knee: Normal tibiofemoral joint spaces. Right knee: Normal tibiofemoral joint spaces. IMPRESSION: Normal tibiofemoral joint spaces. Bobby Swain MD IMG XR LOWER EXTREMITY Final Result * (ABNORMAL) Comprehensive metabolic panel (05/20/2024 3:36 PM EST) SODIUM 141 135 - 145 mmol/L [facility] POTASSIUM 4.1 3.4 - 5.0 mmol/L [facility] CHLORIDE 104 98 - 108 mmol/L [facility] CO2 26 23 - 32 mmol/L [facility] BUN 17 8 - 25 mg/dL [facility] CREATININE 0.90 0.50 - 1.00 mg/dL [facility] GLUCOSE 93 70 - 110 mg/dL [facility] ALBUMIN 4.2 3.3 - 5.0 g/dL [facility] TOTAL PROTEIN 6.6 6.0 - 8.3 g/dL [facility] CALCIUM 8.8 8.5 - 10.5 mg/dL [facility] ALKALINE PHOSPHATASE 130(H) 30 - 100 U/L [facility] TOTAL BILIRUBIN 0.3 0.0 - 1.0 mg/dL [facility] AST 25 9 - 32 U/L [facility] ALT 22 7 - 33 U/L [facility] GLOBULIN 2.4 1.9 - 4.1 g/dL [facility] EGFR 73 >59 mL/min/1. 73m2 [facility] Comment:Estimated glomerular filtration rate calculated using the CKD-EPI refit equation. ANION GAP 11 3 - 17 mmol/L [facility] 05/20/2024 3:36 PM EST 05/20/2024 4:39 PM EST Bobby Swain MD LAB BLOOD ORDERABLES Final Re sult [facility] [address] [place] [address] * Hepatitis C antibody, qualitative (09/07/2023 7:15 PM EDT) HCV ANTIBODY Negative Negative [facility] Comment:Antibodies to HCV no t detected. Does not exclude the possibility of exposure to HCV. Blood 09/07/2023 7:15 PM EDT 09/07/2023 7:32 PM EDT Edil Howell MD LAB BLOOD ORDERABLES Final Resul t [facility] [address] [place] [address] from Last 3 Months or Most Recently Relevant to Health Maintenance Insurance [facility] [place] [address] [place] [address] [facility] Advance Directives For more information, please contact: [phone] (9AM - 5PM [facility], Saturday-Saturday) * Full Code (Latest Code Status on File) Date Activated Date Inactivated Comments 09/08/2023 12:13 PM Question Answer Comments Code Status Confirmed With: Other (specify below ) Code Discussion Comments: presumed Care Teams Cork Tile Floor Layer Relationship Specialty Start Date End Date Amelie Carr MD [address] [place] [address] PCP - General Internal Medicine 09/23/23 Additional Source Comments The information contained in this document represents components of the legal health record. It is not the complete legal health record.[facility]
--- OUTSIDE RECORDS SUMMARY | 2025-02-12 10:51 | XMS_ITS | Encounter Summary ---
Author Organization [facility] Address [address] [place] [address] [place] [address] Phone Care Team Providers Care Car Dryer Name Role Phone Pcp, Unknown Primary Care Provider Amelie Mijares MD Primary Care Provider [phone] Encounter Details Date Type Department Care Team (Late st Contact Info) Description 09/07/2023 Procedure Pass [facility] Emergency Imaging, [address], Floor 1 [place] [address] Social History Tobacco Use Types Packs/Day Years [...] 6:00 PM EDT Romelia Caal RN * [place] Suicide Severity Rating Scale (Screener/Recent Self-Report) Question [...] Description 04/21/2025 10:00 AM EST Office Visit [facility] Rheumatology [address], 4th Floor, [address] [place] [address] Bobby Maloney MD [address] [place] [address] [address] [place] [address] [email or web address] 05/25/2025 10:30 AM EST Office Visit [facility] General Neurology [address] [place] [address], [address] [place] [address] Natan Braden MD [address] [place] [address] [email or web address] documented as of this encounter Visit Diagnoses Not on filedocumented in this encounter Care Teams Car Dryer Relationship Specialty Start Date End Date Pcp, Unknown PCP - General 09/07/23 09/22/23 Amelie Carr MD [address] [place] [address] PCP - General Internal Medicine 09/23/23 documented as of this encounter Additional Source Comments The information contained in this document represents components of the legal health record. It is not the complete legal health record.[facility]
--- OUTSIDE RECORDS SUMMARY | 2025-02-12 10:51 | XMS_ITS | Encounter Summary ---
Author Organization [facility] Address [address] [employer] [facility] [address] [place] [address] Phone Care Team Providers Care Conventions Reservationist Name Role Phone Pcp, Unknown Primary Care Provider Amelie Mijares MD Primary Care Provider [phone] Encounter Details Date Type Department Care Team (Late st Contact Info) Description 09/11/2023 Ophth Exam [facility]N Consult from [facility] [address] [place] [address] Abdullahi Abrams MD [address] [place] [address] [email or web address] Social History Tobacco Use Types Packs/Day Years [...] Description 04/21/2025 10:00 AM EST Office Visit [facility] Rheumatology [address], 4th Floor, [address] [place] [address] Bobby Maloney MD [address] [facility] [address] [place] [address] [email or web address] 05/25/2025 10:30 AM EST Office Visit [facility]rology [address] [facility], [address] [place] [address] Natan Braden MD [address] [place] [address] [address] [place] [address] [email or web address] documented as of this encounter Visit Diagnoses Not on filedocumented in this encounter Care Teams Conventions Reservationist Relationship Specialty Start Date End Date Pcp, Unknown PCP - General 09/07/23 09/22/23 Amelie Carr MD [address] [place] [address] PCP - General Internal Medicine 09/23/23 documented as of this encounter Additional Source Comments The information contained in this document represents components of the legal health record. It is not the complete legal health record.[facility]
--- OUTSIDE RECORDS SUMMARY | 2025-02-12 10:51 | XMS_ITS | Encounter Summary ---
Author Organization [facility] Address [address] [place] [address] Phone Care Team Providers Care Director Of Conservation Name Role Phone Amelie Carr MD Primary Care Provider [phone] Encounter Details Date Type Department Care Team (Latest Contact Info) Description 12/11/2024 Ancillary Orders [facility] Rheumatology [address], 4th Floor, [address] [place] [address] Bobby Maloney MD [address] [place] [phone] @[email or web address] Giant cell arteritis (Primary Dx); Pain in joints Social History Tobacco Use Types Packs/Day Years [...] Description 04/21/2025 10:00 AM EST Office Visit [facility] Rheumatology [address], 4th Floor, [address] [place] [address] Bobby Maloney MD [address] [place] [address] [address] [place] [address] [email or web address] 05/25/2025 10:30 AM EST [facility] [address] [place] [address], [address] [place] [address] Natan Braden MD [address] [place] [address] [email or web address] documented as of this encounter Results * XR HAND 3 OR MORE [...] spaces. No erosion. IMPRESSION: Normal joint spaces. [facility] Haider Swain MD IMG XR UPPER EXTREMITY Final Result documented in this encounter Visit Diagnoses Diagnosis Pain in joints Pain in joint, multiple sites Giant cell arteritis- Primary Pain in joints Pain in joint, multiple sites documented in this encounter Care Teams Director Of Conservation Relationship Specialty Start Date End Date Amelie Carr MD [address] [place] [address] PCP - General Internal Medicine 09/23/23 documented as of this encounter Additional Source Comments The information contained in this document represents components of the legal health record. It is not the complete legal health record.[facility]
--- OUTSIDE RECORDS SUMMARY | 2025-02-12 10:51 | XMS_ITS | Encounter Summary ---
Author Organization [facility] Address [address] [place] [address] [place] [address] Phone Care Team Providers Care Program Mgr Name Role Phone Pcp, Unknown Primary Care Provider Amelie Mijares MD Primary Care Provider [phone] Encounter Details Date Type Department Care Team (Late st Contact Info) Description 09/07/2023 Procedure Pass [facility] Emergency Imaging, [address], [address] 1 [place] [address] Social History Tobacco Use Types Packs/Day Years [...] 6:00 PM EDT Romelia Caal RN * [place] Suicide Severity Rating Scale (Screener/Recent Self-Report) Question [...] Description 04/21/2025 10:00 AM EST Office Visit [facility] Rheumatology [address], 4th Floor, [address] [place] [address] Bobby Maloney MD [address] [place] [address] [address] [place] [address] [email or web address] 05/25/2025 10:30 AM EST Office Visit [facility] General Neurology [address] [place] [address], [address] [place] [address] Natan Braden MD [address] [place] [address] [email or web address] documented as of this encounter Visit Diagnoses Not on filedocumented in this encounter Care Teams Program Mgr Relationship Specialty Start Date End Date Pcp, Unknown PCP - General 09/07/23 09/22/23 Amelie Carr MD [address] [place] [address] PCP - General Internal Medicine 09/23/23 documented as of this encounter Additional Source Comments The information contained in this document represents components of the legal health record. It is not the complete legal health record.[facility]
--- OUTSIDE RECORDS SUMMARY | 2025-02-12 10:51 | XMS_ITS | Encounter Summary ---
Author Organization [facility] Address [address] [place] [address] Phone Care Team Providers Care Scrap Piler Name Role Phone Amelie Carr MD Primary Care Provider [phone] Encounter Details Date Type Department Care Team (Latest Contact Info) Description 12/11/2024 Ancillary Orders [facility] [place]ology [address], 4th Floor, [address] [place] [address] Bobby Maloney MD [address] [place] [address] [email or web address] Giant cell arteritis (Primary Dx); Pain in [...] Description 04/21/2025 10:00 AM EST Office Visit [facility] Rheumatology [address], 4th Floor, [address] [place] [address] Bobby Maloney MD [address] [place] [address] [address] [place] [address] @[email or web address] 05/25/2025 10:30 AM EST [facility] [address] [facility], [address] [place] [address] Natan Braden MD [address] [place] [address] [email or web address] documented as of this encounter Results * XR KNEE 1-2 VIEWS (BILATERAL) (12/11/2024 [...] MD IMG XR LOWER EXTREMITY Final Result documented in this encounter Visit Diagnoses Diagnosis Pain in joints Pain in joint, multiple sites Giant cell arteritis- Primary Pain in joints Pain in joint, multiple sites documented in this encounter Care Teams Scrap Piler Relationship Specialty Start Date End Date Amelie Carr MD [address] [place] [address] PCP - General Internal Medicine 09/23/23 documented as of this encounter Additional Source Comments The information contained in this document represents components of the legal health record. It is not the complete legal health record.[facility]
--- OUTSIDE RECORDS SUMMARY | 2025-02-12 10:51 | XMS_ITS | Encounter Summary ---
Author Organization [facility] Address [address] [employer] [facility] [address] [place] [address] Phone Care Team Providers Care Road Production General Manager Name Role Phone Pcp, Unknown Primary Care Provider Amelie Mijares MD Primary Care Provider [phone] Encounter Details Date Type Department Care Team (Late st Contact Info) Description 09/08/2023 Documentation [facility] [address] [facility] 9th [place] [address] Layo Gilliam MD [address] [place] [address] [email or web address] Social History Tobacco Use Types Packs/Day Years [...] 6:00 PM EDT Romelia Caal RN * [place] Suicide Severity Rating Scale (Screener/Recent Self-Report) Question [...] 10:00 AM EST Office Visit [facility] [address] [facility], 4th Floor, [address] [place] [address] Bobby Maloney MD [address] [facility] [address] [place] [address] [email or web address] 05/25/2025 10:30 AM EST Office Visit [facility] General Neurology [address] [facility], [address] [place] [address] Natan Braden MD [address] [place] [address] [address] [place] [address] [email or web address] documented as of this encounter Visit Diagnoses Not on filedocumented in this encounter Care Teams Road Production General Manager Relationship Specialty Start Date End Date Pcp, Unknown PCP - General 09/07/23 09/22/23 Amelie Carr MD [address] [place] [address] PCP - General Internal Medicine 09/23/23 documented as of this encounter Additional Source Comments The information contained in this document represents components of the legal health record. It is not the complete legal health record.[facility]
--- OUTSIDE RECORDS SUMMARY | 2025-02-12 10:51 | XMS_ITS | Encounter Summary ---
Author Organization [facility] Address [address] [place] [address] [place] [address] Phone Care Team Providers Care Chemist Physical Name Role Phone Pcp, Unknown Primary Care Provider Amelie Mijares MD Primary Care Provider [phone] Encounter Details Date Type Department Care Team (Late st Contact Info) Description 09/08/2023 Procedure Pass [facility] Imaging, [address] [facility], 2nd [place] [address] Social History Tobacco Use Types Packs/Day Years [...] 6:00 PM EDT Romelia Caal RN * [place] Suicide Severity Rating Scale (Screener/Recent Self-Report) Question [...] Description 04/21/2025 10:00 AM EST Office Visit [facility] Rheumatology [address], 4th Floor, [address] [place] [address] Bobby Maloney MD [address] [place] [address] [address] [place] [address] [email or web address] 05/25/2025 10:30 AM EST Office Visit [facility] General Neurology [address] [place] [address], [address] [place] [address] Natan Barden MD [address] [place] [address] 720 [place] [address] [email or web address] documented as of this encounter Visit Diagnoses Not on filedocumented in this encounter Care Teams Chemist Physical Relationship Specialty Start Date End Date Pcp, Unknown PCP - General 09/07/23 09/22/23 Amelie Carr MD [address] [place], [place] [id number] PCP - General Internal Medicine 09/23/23 documented as of this encounter Additional Source Comments The information contained in this document represents components of the legal health record. It is not the complete legal health record.[facility]
--- OUTSIDE RECORDS SUMMARY | 2025-02-12 10:51 | XMS_ITS | Encounter Summary ---
Author Organization [facility] Address [address] [facility] [address] [place] [address] Phone Care Team Providers Care Canine Enforcement Officer Name Role Phone Pcp, Unknown Primary Care Provider Amelie Mijares MD Primary Care Provider [phone] Encounter Details Date Type Department Care Team (Late st Contact Info) Description 09/07/2023 Ophth Exam [facility] Emergency Department [address] [place] [address] Alisha Cao, RADHA [address] [place] [address] [email or web address] Social History Tobacco Use Types Packs/Day Years [...] 6:00 PM EDT Romelia Caal RN * [place] Suicide Severity Rating Scale (Screener/Recent Self-Report) Question [...] Description 04/21/2025 10:00 AM EST Office Visit [facility] Rheumatology [address], 4th Floor, [address] [place] [address] Bobby Maloney MD [address] [place] [address] [address] [place] [address] [email or web address] [place] [email or web address] 05/25/2025 10:30 AM EST Office Visit [facility] General Neurology [address] [place] [address], [address] [place] [address] Natan Braden MD [address] [place] [address] 720 [place] [address] [email or web address] [place] [email or web address] documented as of this encounter Visit Diagnoses Not on filedocumented in this encounter Care Teams Canine Enforcement Officer Relationship Specialty Start Date End Date Pcp, Unknown PCP - General 09/07/23 09/22/23 Amelie Carr MD [address] [place] [address] PCP - General Internal Medicine 09/23/23 documented as of this encounter Additional Source Comments The information contained in this document represents components of the legal health record. It is not the complete legal health record.[facility]
[2025-02-12 13:50] LABS: Alanine Aminotransferase 13 U/L (0-31); Albumin Level 4.1 g/dL (3.5-5.0); Alkaline Phosphatase 111 U/L (39-117); Anion Gap 10 (12-20); Aspartate Amino Transferase 27 U/L (5-31); Blood Urea Nitrogen 18 mg/dL (9-16); Calcium 8.9 mg/dL (8.4-10.2); Carbon Dioxide 28 mmol/L (22-29); Chloride 106 mmol/L (96-108); Cholesterol 264 mg/dL (<200); Estimated Glomerular Filt Rate > 60; HDL Cholesterol 78 mg/dL (>40); Potassium 4.4 mmol/L (3.3-5.1); Sodium 140 mmol/L (135-145); Total Protein 7.3 g/dL (6.5-8.0); Triglycerides 77 mg/dL (<150)
[2025-02-12 14:16] LABS: Folate 6.8 ng/mL (> or = 4.0); Vitamin B12 423 pg/mL (200-900)
== END 2025-02-12 08:38 | disposition home or self-care (01) ==
LOC: HO.HMGCLDS 08:37
PROVIDERS: PCP Internal Medicine; Visit Provider Internal Medicine
DX: I10 Essential (primary) hypertension (principal); E78.5 Hyperlipidemia, unspecified; E53.8 Deficiency of other specified B group vitamins; Z86.73 Personal history of transient ischemic attack (TIA), and cerebral infarction without residual deficits; Z79.899 Other long term (current) drug therapy; F41.9 Anxiety disorder, unspecified; F32.A Depression, unspecified; E66.9 Obesity, unspecified
CPT/HCPCS: 36415; 80053; 80061; 82607; 82746; 83036; 84443; 99212

== ENCOUNTER 2025-02-12 08:37 | Outpatient (AMB) | payer OTHER, SELFPAY ==
[2025-02-12 08:39] VITALS: BP 108/68; PULSE 81; RESP 16; TEMP 36.9; O2SAT 94; BMI 36.6
--- NOTE | 2025-02-12 08:39 | A.OFFPC_ITS ---
Vital Signs 02/12/25 08:39 Height 5 ft 6 in Weight 227 lb BMI 36.6 BP 108/68 Blood Pressure Location Lt brachial Position Sitting Respiration 16 Pulse 81 Pulse Source Pulse Oximeter Temp 98.4 F Temp Source Oral Pulse Oximetry (%) 94 Oxygen Delivery Method Room Air Intake Visit Reasons: 2m follow up Intake Note: Pt is here today for 2 months follow up visit. Allergies phenytoin (From Dilantin) Allergy (Severe, Verified 02/12/25 09:01) rash amoxicillin Allergy (Intermediate, Verified 02/12/25 09:01) rash Medication List - Last Reconciled 02/12/25 by Amelie Carr MD aspirin 81 mg PO DAILY Bacillus coagulans-inulin 1 billion-250 cell-mg caps PO calcium citrate-vitamin D3 315 mg-6.25 mcg (250 unit) 1 tab PO BID cyanocobalamin (vitamin B-12) injections ergocalciferol (vitamin D2) 1,250 mcg PO QWEEK erythromycin 0.5 inches ophthalmic (eye) QID fluocinonide 0.05% mL topical BID PRN hydrocortisone 2.5% appl topical ketoconazole 2% 1 appl topical 2XW PRN lisinopril 5 mg PO DAILY lorazepam 0.5 mg PO QID PRN omeprazole 20 mg PO DAILY sertraline 100 mg PO DAILY 90 days Tobacco use date assessed: 02/12/25 Dental Screening Dental Screen Date: 05/07/24 HPI 2m follow up HPI Details Patient presents for the follow-up. Her insurance declined coverage for GLP 1 agonist. The patient could not take phentermine because of history of hypertension and TIA/CVA. Patient has been decreasing caloric intake increasing regular activity but is limited because of lower back pain and bursitis in her hips. She has been taking lisinopril for hypertension. Depression is stable on sertraline and patient is established with a counselor. [facility], [facility] Medical History Ischemic demyelination of optic nerve Giant cell arteritis BMI 34.0-34.9,adult Osteopenia Hyperlipidemia PFO (patent foramen ovale) Essential hypertension History of sleep apnea History of hiatal hernia Surgical History (Reviewed 02/12/25 @ 09:03 by Trinity Galaviz [facility]) History of uvulectomy History of tonsillectomy History of cholecystectomy History of appendectomy History of bilateral breast reduction surgery Family History Mother Substance abuse Father Bladder cancer Brother Substance abuse Brother Substance abuse Sister Substance abuse Social History Housing: Condominium Alcohol intake: current Patient Tobacco Use Status: Former Tobacco user Cigarettes Per Day: 10 e-Cigarette/Vaping Use: Never Used Second Hand Smoke Exposure: No service: No Current occupational status: employed Current occupational exposures/hazards: No Cognitive needs: No Hearing needs: No Vision needs: Yes Questionnaire Thrive Questionnaire Date Thrive assessed: 05/07/24 I am a: Patient What is your living situation today?: I have a steady place to live Within the past 12 months, did the food you bought not last and you didn't have the money to get more?: Never true Within the past 12 months, did you worry whether your food would run out before you got money to buy more?: Never true Do you have trouble paying for medicines?: No Do you have trouble getting transportation to medical appointments?: No Do you have trouble paying your heating and electricity bill?: No Do you have trouble taking care of your child, family member or friend?: I choose not to answer this question Do you have trouble with day-to-day activities such as bathing, preparing meals, shopping, managing finances, etc.?: I choose not to answer this question Are you currently unemployed and looking for a job?: No Are you interested in more education?: No Please select the resources that you would like help with: None Currently or been in a relationship where the following occur: No concerns reported THRIVE Score: 0 JODIE-7 AMB Questionnaire JODIE-7 Date JODIE - 7 assessed: 05/07/24 Source: Developed by Drs. Bud Riley, Paulette Ruiz, Aric Ospina and colleagues, with an educational randall from [employer]. Review of Systems Const All systems reviewed & are unremarkable except as noted in HPI and below ENT Reports no additional complaints Card Reports no additional complaints Resp Reports no additional complaints GI Reports no additional complaints Reports no additional complaints Physical exam (Primary Care) Vital Signs: Last Vital Signs Temp 98.4 F 02/12/25 08:39 Pulse 81 02/12/25 08:39 Resp 16 02/12/25 08:39 BP 108/68 02/12/25 08:39 Pulse Ox 94 02/12/25 08:39 Oxygen Delivery Method Room Air 02/12/25 08:39 BMI result Body Mass Index 36.6 Tobacco/Smoking Status: Tobacco use Status Tobacco use date assessed 02/12/25 02/12/25 08:39 Patient Tobacco Use Status Former Tobacco user 02/12/25 08:39 e-Cigarette/Vaping Use Never Used 02/12/25 08:39 Thrive Assessment: Date of Thrive Assessment Date Thrive assessed 05/07/24 02/12/25 08:39 Currently or been in a relationship where the following occur: No concerns reported Const General: no acute distress Eyes General: appearance normal, both eyes and all related structures Neck Neck: Yes supple Resp Effort & Inspection: normal respiratory effort Auscultation: clear to auscultation bilaterally Cardio Rhythm: regular rhythm Heart sounds: S1 normal heart sound present and S2 normal heart sound present Coding Level of Care Code Est Pt Level 4 (63714) Diagnoses Essential hypertension I10 Hyperlipidemia E78.5 Anxiety and depression F41.9; F32.A Obesity (BMI 30.0-34.9) E66.9 Assessment & Plan Assessment & Plan (1) Essential hypertension: Code(s): I10 - Essential (primary) hypertension Category: Medical Plan: Continue lisinopril (2) Hyperlipidemia: Comment: Lipitor was stopped because of elevated LFTs at [facility] 08/2023 Code(s): E78.5 - Hyperlipidemia, unspecified Category: Medical Plan: Continue low-cholesterol diet patient will have lipid profile checked today (3) Anxiety and depression: Code(s): F41.9 - Anxiety disorder, unspecified; F32.A - Depression, unspecified Category: Medical Plan: Continue sertraline follow-up with the counselor (4) Obesity (BMI 30.0-34.9): Code(s): E66.9 - Obesity, unspecified Category: Medical Plan: Decreasing caloric intake increasing physical activity and weight loss discussed with the patient Orders: Orders Comprehensive Abie. Panel Fast Today E78.5 - Hyperlipidemia, unspecified, I10 - Essential (primary) hypertension Hemoglobin A1c Today E78.5 - Hyperlipidemia, unspecified, I10 - Essential (primary) hypertension Vitamin B12 and Folate Today E53.8 - Deficiency of other specified B group vitamins Lipid Panel Today E78.5 - Hyperlipidemia, unspecified, I10 - Essential (primary) hypertension TSH reflex Free T4 Today E78.5 - Hyperlipidemia, unspecified, I10 - Essential (primary) hypertension Medications: Discontinued tirzepatide (weight loss) (Zepbound) Discontinued Reason: Doctor's Order 2.5 mg (0.5 mL) subcut QWEEK 4 mL 2RF phentermine must administer 30 minutes before or 1-2 hours after breakfast Discontinued Reason: Doctor's Order 37.5 mg PO DAILY 30 caps 1RF
--- OUTSIDE RECORDS SUMMARY | 2025-02-12 08:53 | XMS_ITS | Clinical Summary ---
Author Organization [facility] Address [address] [place] [address] Care Team Providers Care Facility Environmental Technician Name Role Phone Amelie Carr Primary Care Provider [phone] Allergies Active Allergy Reactions Criticality Noted Date [...] Description 08/04/2025 11:00 AM EDT Research Encounter [facility] [address] [address] Sandy Cueto MD [address] [place] [address] Health Maintenance Due Date Last Done Comments Cervical Cancer Screening 1965 Cologuard 1965 Colon Cancer Screening 1965 Colonoscopy 1965 FOBT / Fit Test 1965 HIV Screening 1965 HPV and Pap Smear 1965 Pap Smear [address] Lung Cancer Screening (Baseline) 2013 Pneumococcal Vaccine: 50+ Years (1 of 1 - PCV) 2013 Mammogram 06/23/2022 06/23/2020 Alcohol/Substance Use Screening 04/15/2024 Depression Screening and Follow-Up 04/15/2024 Social Drivers of Health Annual Screening 04/15/2024 COVID-19 Vaccine ( season) 2024 08/19/2023, 04/26/2023, 01/16/2023, Additional history exists Influenza Vaccine (#1) 2024 , 01/16/2023, 01/14/2022, [...] Documents on File Type Date Recorded Patient Litigation Support Analyst Expl anation Health Care Proxy 08/19/2023 8:51 AM 2023 * Full Code (Latest Code Status on File) Date Activated Date Inactivated Comments 08/15/2023 12:07 PM 08/17/2023 7:17 PM Healthcare Agents on File Name Relationship Healthcare Agent [facility] Ana Jean Baptiste Sister Health Care Agent Care Teams Facility Environmental Technician Relationship Specialty Start Date End Date Amelie Carr [address] [place] [address] PCP - General Internal Medicine 08/13/23
--- OUTSIDE RECORDS SUMMARY | 2025-02-12 08:53 | XMS_ITS | Data Portability ---
Author Organization [place] [facility],, JESSIKA MCCLOUD MD Address [address] [address] Care Team Providers Care Denture Model Maker Name Role Phone SÁNCHEZ BELL Primary Care Provider Assessment No assessment recorded. Plan of Treatment Reminders Order Date Submit Date Provider Last Modified By Organization Details Last Modified Time Details Appointments None recorded. Lab pap test, thinprep, cervical 2022 023 harrison [facility] (Centralized Electronic Ordering - All Locations), Patient Can Go To The Location Of Their Choice, [id number] 3 07:46:03 fecal occult blood, stool 2022 023 [email or web address] 1 In-Office Order, Internal Use Only DO Not Attach Compendium DO Not Attach Compendium, Do Not Delete/merge, [id number] 3 09:52:32 brca (1+2) mutation analysis, blood or tissue 2021 022 [email or web address] [facility], [address], [place], [address], 2 08:58:15 pap test, thinprep, cervical 2021 022 harrison [facility], Cytopathology Service, [address] [facility], [place], [address], 2 08:05:47 fecal occult blood, stool 2021 022 [email or web address] 1 In-Office Order, Internal Use Only DO Not Attach Compendium DO Not Attach Compendium, Do Not Delete/merge, [id number] 2 13:20:41 Referral None recorded. Procedures None recorded. Surgeries None recorded. Imaging MAMMO, screening , digital, bilateral - Breast Aspiratio n and/or Biopsy if needed 2022 023 [facility] (Imaging), [address] [place], [address], 5 10:30:21 MAMMO, screening , digital, bilateral 2021 022 [facility] ([facility]), [address] [place], [address], 4 07:28:47 Medication Orders nystatin 100,000 unit/gram topical powder 2022 023 [facility][id number], [address] [facility] , [place], [address], 3 09:53:24 Patient TargetsNo targets recorded. Patient Instructions Encounter Date Encounter Id Patient Instructions Last Modified By Organization Details Last Modified Time 09/28/2021 [id number] learning about healthy weight [email or web address] Not available 09/28/2021 13:20:40 She is here [...] new mass in the breast. Not available 09/28/2021 13:21:26 11/02/2021 [id number] She is here for BRCA testing, she [...] 375 dollars, and that the testing company ([employer] will contact her if the co pay [...] minutes niru Not available 11/02/2021 10:50:36 10/01/2022 [id number] learning about healthy weight niru Not available 10/01/2022 09:52:31 She is her [...] Detail LastModifiedTime 09/29/19 22 09/28/2021 PAP1C ASE [email or web address] ThinP rep Pap, Image d: NEGAT RAJ FOR SQUAM OUS INTRA EPITH ELIAL SHAWN Yoon AND MOHINI BABIN . Indigo [place] , [place]( CP) (Case elect lazarus kilgore jose g d 10 04 2021) ADEQU ACY: Satis facto ry Endoc ervic al/tr ansfo rmati on zone compo nent maico nt. SOURC E: ThinP rep Pap HPV IF Ascus : Refle x 16 and 18, Cervi lonnie, Image d CLINI LONNIE INFOR MATIO N: HPV If Diagn osis of ASCUS . LPS no resul ts. [Z12. 4, Z01.4 19] Not Available [facility], Cytopathology Service [address] [facility], [place], [address], 10/05/2021 07:31:06 09/29/19 22 09/28/2021 fecal occul t blood , stool Occult Blood negati ve Not Available In-Office Order Internal Use Only DO Not Attach Compendium DO Not Attach Compendium, Do Not Delete/merge, [id number] 09/28/2021 08:09:06 10/02/19 23 10/01/2022 [facility] CYTOL OGY results Padmaja marks Name: MARION WEISS : 1965 (Age: 57) Lab Acces windy #: [id number] Colle ction Date: 2022 Acces windy Date: 2022 Sign Out Date: 023 Tissu e Sourc e: 1: THINP REP [place] PAP TEST, CERVI LONNIE: Final Diagn osis: [...] 19 , lps 09-28 neg Phone #: [phone], On-Ca ll Patho logis t: [id number] Not Available [facility] (Centralized Electronic Ordering - All Locations) Patient Can Go To The Location Of Their Choice, [id number] 10/18/2022 09:17:01 10/02/19 23 10/01/2022 fecal occul t blood , stool Occult Blood negati ve Not Available In-Office Order Internal Use Only DO Not Attach Compendium DO Not Attach Compendium, Do Not Delete/merge, [id number] 10/01/2022 08:09:15 Result Notes None recorded. Problems Name Problem SNOMED Code Status Onset Date Resolution Date Notes Provider Name and Address Organization Details Recorded Time Family history of breast cancer 412436451 Active 2021 Jessika Mccloud MD [address] [employer],[address], [place], [address], [place] [facility], 2 10:50:04 Candidiasis of skin 97388662 Active 2022 Jessika Mccloud MD [address] [employer] [place],[address], [place], [address] [place] [facility], 3 09:52:43 Problem Notes None recorded. Procedures Surgical History Date Name Laterality Status Provider Name and Address Organization Details Recorded Time 12/27/19 22 Most Recent Mammogram completed Kelly Glasgow [place] - [facility], 10/01/2022 08:08:06 10/09/19 13 cholecystectomy completed Kelly Glasgow [place] - [facility], 09/28/2021 08:26:25 09/18/19 07 Hernia repair w/mesh completed Kelly Suewruddy [place] - [facility], 09/28/2021 08:26:00 09/15/18 96 Breast reduction completed Kelly Glasgow [place] - [facility], 09/28/2021 08:25:48 09/15/18 69 procedure on kidney completed Kelly Rogerswruddy [place] - [facility], 09/28/2021 08:25:34 Imaging Results None recorded. Procedure Notes None recorded. Medical Equipment None Reported. Allergies Allergen ID Allergen Name Allergen Category Reaction Reaction Severity Criticality Documentation Date Start Date Code Code System Note Provider Name and Address Organization Details Recorded Time 57513 Dilantin medicatio n hives Not available Not available 09/28/2021 87605 0 RxNorm Kellymaribel barboza [place] - [facility], 2 08:13:51 89593 amoxicill in medicatio n hives Not available Not available 09/28/2021 723 RxNorm Kelly Suewruddy barboza [place] - [facility], 2 08:14:04 Medications Name Sig Start [...] Body weight Body temperature Heart rate Systolic And Diastolic Provider Name and Address Organization Details Last Updated DateTime 2 170.18 cm 35 kg/m2 383189. 82 g 98.1 [degF] 67 /min 131/76 mm[Hg] Kelly Castillo in [facility], 2 08:12:08 Date Recorded Body height Body mass index (BMI) Body weight Body temperature Heart rate Systolic And Diastolic Provider Name and Address Organization Details Last Updated DateTime 3 165.1 cm 37.8 kg/m2 313956. 19 g 97.2 [degF] 91 /min 132/72 mm[Hg] Kelly Castillo in [facility], 3 08:04:31 Date Recorded Body height Body mass index (BMI) Body weight Heart rate Body temperature Systolic And Diastolic Provider Name and Address Organization Details Last Updated DateTime 2 170.18 cm 34.9 kg/m2 891009. 1 g 97.2 /min 69 [degF] 128/73 mm[Hg] Cristina Castillo in [facility], 2 08:35:35 Social History Question Answer Notes LastModified by Organizat ion Details LastModified Time Tobacco Smoking Status Never Smoker [place] Gregory in [facility], 09/28/2021 08:24:27 How Many Years Have You [...] Or The Highest Degree You Have Received? GC47795-1 Information not available 09/28/2021 Who Is Your [...] anxious, or unable to sleep at night)? [id number] Information not available 09/28/2021 Family History Relationship Description Onset Age of this Age Resolved Age Notes LastModified by Organization Details LastModified Time Paternal Aunt Malignant neoplasm of breast 52 [email or web address] Not available 2021 08:18:01 Paternal Aunt Problem lung [email or web address] Not avai lable 11/02/2021 08:39:02 Unspecified Relation Malignant neoplasm of breast 32 patern al first cousin Not available 11/02/2021 10:48:55 Unspecified Relation Malignant neoplasm of breast 61 patern al first cousin [...] quadrivalent, preservative 1 completed SHEILA Gregory in [facility], 09/28/2021 08:16:54 Influenza, split virus, quadrivalent, preservative 6 completed [place]ILA Gregory in [facility], 10/01/2022 08:05:25 Influenza, split virus, quadrivalent, preservative [...] Kelly Meczywor null, [place] - [facility], 10/01/2022 08:05:25 influenza, unspecified formulation 0 completed Kelly Meczywor null, [place] [facility], 10/01/2022 08:05:25 Tdap 1 completed Kelly Meczywor null, [place] [facility], 10/01/2022 08:05:25 RIG 1 completed Kelly Meczywor null, [place] [facility], 10/01/2022 08:05:25 Influenza, split virus, trivalent, preservative 4 completed Kelly Meczywor null, [place] [facility], 10/01/2022 08:05:25 Influenza, split virus, trivalent, preservative 2 completed Kelly Meczywor null, [place] [facility], 10/01/2022 08:05:25 Influenza, split virus, trivalent, preservative 5 completed Kelly Meczywor null, [place] [facility], 10/01/2022 08:05:25 Influenza, split virus, quadrivalent, PF 0 completed Kelly Meczywor null, [place] [facility], 10/01/2022 08:05:25 Influenza, split virus, quadrivalent, PF 1 completed Kelly Meczywor null, [place] [facility], 10/01/2022 08:05:25 Influenza, split virus, quadrivalent, PF 9 completed Kelly Meczywor null, [place] [facility], 10/01/2022 08:05:25 Past Encounters Encounter ID Performer Location Encounter Start Date Encounter Closed Date Diagnosis/Indication Diagnosis SNOMED-CT Code Diagnosis ICD10 Code Diagnosis IMO Codes Diagnosis Note [id number] MD JESSIKA Villeda MD [address] [place] [address] 09/28/2021 08:05:43 09/28/2021 14:45:35 Specialized medical examination 97457804 Z01.419 Screening for malignant neoplasm of rectum 922967733 Z12.12 Screening mammography 24 348060 Z12.31 [id number] MD JESSIKA Villeda MD [address] [place] [address] 11/02/2021 08:33:46 11/02/2021 12:05:45 Family history of breast cancer 727371260 Z80.3 [id number] MD JESSIKA Villeda MD [address] [place] [address] 10/01/2022 07:58:47 10/01/2022 10:02:02 Specialized medical examination 18993236 Z01.419 Screening for malignant neoplasm of rectum 294543430 Z12.12 Screening mammography 24 610879 Z12.31 Candidiasis of skin 4988 3006 B37.2 Health Concerns Section Related Observation LastModified by Organization Detai ls LastModified Time None Recorded Concern Status LastModified by Organization Details LastModified Time None Recorded Advance Directives Directive None Recorded Payers Insurance Date Sequence Insurance Name Policy Number Policy Wing Covered Member ID Wing Member ID Guarantor Name 09/30/2023 1 [facility] (POS) Frances Jean Baptiste [id number] Frances Jean Baptiste Notes Date Note Type Note Provider Name and Address Organization Details Recorded Time 09/28/2021 text/html She is here as a new patient for annual exam. Menopause age 43, nulligravid, single, never smoker, presently not sexually active. Has moderate night sweats some nights but not others. Jessika Mccloud MD [address], [place], [address], [place] [facility], 09/28/2021 13:22:03 11/02/2021 text/html She is here for BRCA testing, she has a strong family history of breast cancer in her paternal aunt and also 2 paternal first cousins. Jessika Mccloud MD [address], [place], [address], [place] - [facility], 11/02/2021 10:50:52 10/01/2022 text/html She is here for annual, doing well.BRCA testing last year was negative. Note from 2021: She is here as a new patient for annual exam. Menopause age 43, nulligravid, single, never smoker, presently not sexually active. Has moderate night sweats some nights but not others.Discussed dietary issues for night sweats. Jessika Mccloud MD [address] [facility],[address], [place], [address], [place] [facility], 10/01/2022 09:54:40 OBGyn Episode No OBEpisode recorded.
== END 2025-02-12 10:50 | disposition home or self-care (01) ==
LOC: HO.HMCC 08:38
PROVIDERS: PCP Internal Medicine; Visit Provider Internal Medicine
DX: I10 Essential (primary) hypertension (principal); E78.5 Hyperlipidemia, unspecified; E66.9 Obesity, unspecified; Z68.36 Body mass index [BMI] 36.0-36.9, adult; F41.9 Anxiety disorder, unspecified; F32.A Depression, unspecified

== ENCOUNTER 2025-02-18 09:29 | Outpatient (AMB) | payer OTHER, SELFPAY ==
--- NOTE | 2025-02-18 09:32 | MHC.OFFWIV ---
Intake Vital Signs 02/18/25 09:33 Height 5 ft 6 in Weight 227 lb BMI 36.6 BP 110/68 Blood Pressure Location Rt brachial Position Sitting Pulse 92 Pulse Source Pulse Oximeter Temp 98.1 F Temp Source Oral Pulse Oximetry (%) 96 Oxygen Delivery Method Room Air Intake Visit Reasons: ep bug bites on torso Intake Note: pt presents with itchy and raised lesions on right side of torso, returned from [place] 1 mo ago had itchy lesions neck and shoulders have since resolved on their own without tx. pt reports h/o shingles Patient Tobacco Use Status: Former Tobacco user Allergies phenytoin (From Dilantin) Allergy (Severe, Verified 02/18/25 09:39) rash amoxicillin Allergy (Intermediate, Verified 02/18/25 09:39) rash Do you need a note to return to daycare/school/sports/work: No HPI HPI Comments History of Present Illness Details History - The patient is a 59-year-old female presenting with concerns about bug bites on her torso. - The patient reports the presence of bug bites on her torso, which she finds unusual due to the cold weather. - The bites are itchy and slightly raised, but not as pronounced as mosquito bites. - The patient has an indoor cat and lives in a [facility] where a neighboring dog might be a source of fleas. - She recently returned from a cruise and experienced night sweats, leading her to clean and vacuum her mattress and she did not observe any bugs. Review of Systems - Integumentary: Reports itchy bug bites on torso. - General: Denies severe itching that disrupts sleep. All systems reviewed and are unremarkable except as noted in HPI Physical Exam Physical Exam General: Cooperative, healthy appearing, comfortable, no acute distress and well developed Orientation: Patient oriented x3 Limitations: No limitations Head: Normal to inspection Ears: Hearing grossly normal bilaterally Face and sinus: Normal facial exam Eyes: Appearance normal, both eyes and all related structures Neck: Normal visual inspection and Yes full ROM Respiratory: Normal respiratory effort and able to speak in complete sentences. Skin: 5 slightly raised erythematous areas on right torso, spread out, not clustered, not warm, no drainage. Neuro: Patient oriented x3 [facility] Medical History Ischemic demyelination of optic nerve Giant cell arteritis BMI 34.0-34.9,adult Osteopenia Hyperlipidemia PFO (patent foramen ovale) Essential hypertension History of sleep apnea History of hiatal hernia Surgical History History of uvulectomy History of tonsillectomy History of cholecystectomy History of appendectomy History of bilateral breast reduction surgery Family History Mother Substance abuse Father Bladder cancer Brother Substance abuse Brother Substance abuse Sister Substance abuse Social History Housing: Condominium Alcohol intake: current Patient Tobacco Use Status: Former Tobacco user Cigarettes Per Day: 10 e-Cigarette/Vaping Use: Never Used Second Hand Smoke Exposure: No service: No Current occupational status: employed Current occupational exposures/hazards: No Cognitive needs: No Hearing needs: No Vision needs: Yes Physical Exam Vital Signs: Last Vital Signs Temp 98.1 F 02/18/25 09:33 Pulse 92 02/18/25 09:33 BP 110/68 02/18/25 09:33 Pulse Ox 96 02/18/25 09:33 Oxygen Delivery Method Room Air 02/18/25 09:33 BMI result Body Mass Index 36.6 Assessment & Plan Assessment & Plan (1) Bug bites: Code(s): W57.XXXA - Bitten or stung by nonvenomous insect and other nonvenomous arthropods, initial encounter Qualifiers: Encounter type: initial encounter Qualified Code(s): W57.XXXA - Bitten or stung by nonvenomous insect and other nonvenomous arthropods, initial encounter Plan: Plan - Advise the use of hydrocortisone cream on affected areas to alleviate itching. - Recommend checking the cat for fleas and inspecting the living area for potential sources of infestation. - Suggest using antihistamines like Benadryl or Zyrtec if itching becomes severe. Patient was informed and verbally consented to the use of an ambient scribe for clinic note documentation during this visit. Coding Level of Care Code Est Pt Level 2 (22178) Diagnoses Bug bite, initial encounter W57.XXXA Encounter type: initial encounter
[2025-02-18 09:33] VITALS: BP 110/68; PULSE 92; TEMP 36.7; O2SAT 96; BMI 36.6
--- OUTSIDE RECORDS SUMMARY | 2025-02-18 10:38 | XMS_ITS | Encounter Summary ---
Author Organization [facility] Address [address] [place] [address] [place] [address] Phone Care Team Providers Care Four Roll Calender Operator Name Role Phone Pcp, Unknown Primary Care Provider Amelie Mijares MD Primary Care Provider [phone] Encounter Details Date Type Department Care Team (Late st Contact Info) Description 09/10/2023 Procedure Pass [facility] [place] [address] [place] [address] Social History Tobacco Use Types [...] Description 04/21/2025 10:00 AM EST Office Visit [facility] [place] [address] [facility], 4th Floor, [address] [place] [address] Bobby Maloney MD 55 [facility] [address] [place] [address] [email or web address] 05/25/2025 10:30 AM EST Office Visit [facility] Neurology 55 [facility], [address] [place] [address] Natan Braden MD [address] [place] [address] [address] [place] [address] [email or web address] documented as of this encounter Visit Diagnoses Not on filedocumented in this encounter Care Teams Four Roll Calender Operator Relationship Specialty Start Date End Date Pcp, Unknown PCP - General 09/07/23 09/22/23 Amelie Carr MD [address] [place] [address] PCP - General Internal Medicine 09/23/23 documented as of this encounter Additional Source Comments The information contained in this document represents components of the legal health record. It is not the complete legal health record.[facility]
--- OUTSIDE RECORDS SUMMARY | 2025-02-18 10:38 | XMS_ITS | Encounter Summary ---
Author Organization [facility] Address [address] [place] [address] [place] [address] Phone Care Team Providers Care Sample Card Maker Name Role Phone Pcp, Unknown Primary Care Provider Amelie Mijares MD Primary Care Provider [phone] Encounter Details Date Type Department Care Team (Late st Contact Info) Description 09/07/2023 Procedure Pass [facility] Emergency Imaging, [address], Floor 1 [place] [address] Social History Tobacco Use Types Packs/Day Years [...] 6:00 PM EDT Romelia Caal RN * [place] Suicide Severity Rating Scale (Screener/Recent Self-Report) Question [...] Description 04/21/2025 10:00 AM EST Office Visit [facility] Rheumatology [address], 4th Floor, [address] [place] [address] Bobby Maloney MD [address] [place] [address] [address] [place] [address] [email or web address] 05/25/2025 10:30 AM EST Office Visit [facility] General Neurology [address] [place] [address], [address] [place] [address] Natan Braden MD [address] [place] [address] [email or web address] documented as of this encounter Visit Diagnoses Not on filedocumented in this encounter Care Teams Sample Card Maker Relationship Specialty Start Date End Date Pcp, Unknown PCP - General 09/07/23 09/22/23 Amelie Carr MD [address] [place] [address] PCP - General Internal Medicine 09/23/23 documented as of this encounter Additional Source Comments The information contained in this document represents components of the legal health record. It is not the complete legal health record.[facility]
--- OUTSIDE RECORDS SUMMARY | 2025-02-18 10:38 | XMS_ITS | Encounter Summary ---
Author Organization [facility] Address [address] [place] [address] [place] [address] Phone Care Team Providers Care Street Flusher Driver Name Role Phone Pcp, Unknown Primary Care Provider Amelie Mijares MD Primary Care Provider [phone] Encounter Details Date Type Department Care Team (Late st Contact Info) Description 09/08/2023 Procedure Pass [facility] [place], [address] [facility], 2nd [place] [address] Social History Tobacco Use Types Packs/Day Years [...] 6:00 PM EDT Romelia Caal RN * [place] Suicide Severity Rating Scale (Screener/Recent Self-Report) Question [...] Description 04/21/2025 10:00 AM EST Office Visit [facility] [place] [address], 4th Floor, [address] [place] [address] Bobby Maloney MD [address] [place] [address] [address] [place] [address] @[email or web address] 05/25/2025 10:30 AM EST Office Visit [facility] General Neurology [address] [place] [address], [address] [place] [address] Natan Braden MD [address] [place] [address] [address] [place] [address] [email or web address] documented as of this encounter Visit Diagnoses Not on filedocumented in this encounter Care Teams Street Flusher Driver Relationship Specialty Start Date End Date Pcp, Unknown PCP - General 09/07/23 09/22/23 Amelie Carr MD [address] [place], [place] [phone] PCP - General Internal Medicine 09/23/23 documented as of this encounter Additional Source Comments The information contained in this document represents components of the legal health record. It is not the complete legal health record.[facility]
--- OUTSIDE RECORDS SUMMARY | 2025-02-18 10:38 | XMS_ITS | Encounter Summary ---
Author Organization [facility] Address [address] [facility] [address] [place] [address] Phone Care Team Providers Care Curtain Fitter Name Role Phone Pcp, Unknown Primary Care Provider Amelie Mijares MD Primary Care Provider [phone] Encounter Details Date Type Department Care Team (Late st Contact Info) Description 09/11/2023 Ophth Exam MADELYN Consult from [facility] [address] [place] [address] Abdullahi Abrams MD [address] [place] [address] [email or web address] Social History Tobacco Use Types Packs/Day [...] Description 04/21/2025 10:00 AM EST Office Visit [facility] Rheumatology [address], 4th Floor, [address] [place] [address] Bobby Maloney MD 55 [facility] [address] [place] [address] @[email or web address] 05/25/2025 10:30 AM EST Office Visit [facility] Neurology [address] [facility], [address] [place] [address] Natan Braden MD [address] [place] [address] [address] [place] [address] [email or web address] documented as of this encounter Visit Diagnoses Not on filedocumented in this encounter Care Teams Curtain Fitter Relationship Specialty Start Date End Date Pcp, Unknown PCP - General 09/07/23 09/22/23 Amelie Carr MD [address] [place] [address] PCP - General Internal Medicine 09/23/23 documented as of this encounter Additional Source Comments The information contained in this document represents components of the legal health record. It is not the complete legal health record.[facility]
--- OUTSIDE RECORDS SUMMARY | 2025-02-18 10:38 | XMS_ITS | Encounter Summary ---
Author Organization [facility] [place] [facility] Address [address] [place] [address] [place] [address] Phone Care Team Providers Care Highway Landscape Architect Name Role Phone Pcp, Unknown Primary Care Provider Amelie Mijares MD Primary Care Provider [phone] Encounter Details Date Type Department Care Team (Late st Contact Info) Description 09/07/2023 Procedure Pass [facility] [place] Radiology, Main [address], Floor 1 [place] [address] Social History Tobacco Use Types Packs/Day Years [...] 6:00 PM EDT Romelia Caal RN * [place] Suicide Severity Rating Scale (Screener/Recent Self-Report) Question [...] Description 04/21/2025 10:00 AM EST Office Visit [facility] [place] [address], 4th Floor, [address] [place] [address] Bobby Maloney MD [address] [place] [address] [address] [place] [address] [email or web address] 05/25/2025 10:30 AM EST Office Visit [facility] General Neurology [address] [place] [address], [address] [place] [address] Natan Braden MD [address] [place] [address] [email or web address] documented as of this encounter Visit Diagnoses Not on filedocumented in this encounter Care Teams Highway Landscape Architect Relationship Specialty Start Date End Date Pcp, Unknown PCP - General 09/07/23 09/22/23 Amelie Carr MD [address] [place] [address] PCP - General Internal Medicine 09/23/23 documented as of this encounter Additional Source Comments The information contained in this document represents components of the legal health record. It is not the complete legal health record.[facility]
--- OUTSIDE RECORDS SUMMARY | 2025-02-18 10:38 | XMS_ITS | Encounter Summary ---
Author Organization [facility] Address [address] [employer] [facility] [address] [place] [address] Phone Care Team Providers Care Wood And Wood Products Labourer Name Role Phone Pcp, Unknown Primary Care Provider Amelie Mijares MD Primary Care Provider [phone] Encounter Details Date Type Department Care Team (Late st Contact Info) Description 09/08/2023 Documentation [facility] Neuro [facility] [address] [facility] 9th [place] [address] Layo Gilliam MD [address] [place] [address] [email or web address] Social History Tobacco Use Types [...] 6:00 PM EDT Romelia Caal RN * [place] Suicide Severity Rating Scale (Screener/Recent Self-Report) Question [...] 04/21/2025 10:00 AM EST Office Visit [facility] Rheumatology [place] [address] [facility], 4th Floor, [address] [place] [address] Bobby Maloney MD 55 [facility] [address] [place] [address] [email or web address] 05/25/2025 10:30 AM EST Office Visit [facility] General Neurology 55 [facility], [address] [place] [address] Natan Braden MD [address] [place] [address] 720 [place] [address] [email or web address] documented as of this encounter Visit Diagnoses Not on filedocumented in this encounter Care Teams [employer] Products Labourer Relationship Specialty Start Date End Date Pcp, Unknown PCP - General 09/07/23 09/22/23 Amelie Carr MD [address] [place] [address] PCP - General Internal Medicine 09/23/23 documented as of this encounter Additional Source Comments The information contained in this document represents components of the legal health record. It is not the complete legal health record.[facility]
--- OUTSIDE RECORDS SUMMARY | 2025-02-18 10:38 | XMS_ITS | Encounter Summary ---
Author Organization [facility] [place] [facility] Address [address] [place] [address] Phone Care Team Providers Care Lock Maintenance Supervisor Name Role Phone Amelie Carr MD Primary Care Provider [phone] Encounter Details Date Type Department Care Team (Latest Contact Info) Description 12/11/2024 Ancillary Orders [facility] [place] [address], 4th Floor, [address] [place] [address] Bobby Maloney MD [address] [place] [address] [email or web address] Giant cell arteritis (Primary Dx); [...] Description 04/21/2025 10:00 AM EST Office Visit [facility] [place] [address], 4th Floor, [address] [place] [address] Bobby Maloney MD [address] [place] [address] [address] [place] [address] [email or web address] 05/25/2025 10:30 AM EST Office Visit [facility] [address] [place] [address], [address] [place] [address] Natan Braden MD [address] [place] [address] [email or web address] documented as of this encounter Results * [...] erosion. IMPRESSION: Normal joint spaces. [facility] Haider Swain MD IMG XR UPPER EXTREMITY Final Result documented in this encounter Visit Diagnoses Diagnosis Pain in joints Pain in joint, multiple sites Giant cell arteritis- Primary Pain in joints Pain in joint, multiple sites documented in this encounter Care Teams Lock Maintenance Supervisor Relationship Specialty Start Date End Date Amelie Carr MD [address] [place] [address] PCP - General Internal Medicine 09/23/23 documented as of this encounter Additional Source Comments The information contained in this document represents components of the legal health record. It is not the complete legal health record.[facility]
--- OUTSIDE RECORDS SUMMARY | 2025-02-18 10:38 | XMS_ITS | Encounter Summary ---
Author Organization [facility] Address [address] [facility] [address] [place] [address] Phone Care Team Providers Care Rack Production Worker Name Role Phone Pcp, Unknown Primary Care Provider Amelie Mijares MD Primary Care Provider Encounter Details Date Type Department Care Team (Late st Contact Info) Description 09/07/2023 Ophth Exam MADELYN Emergency Department [address] [place] [address] Alisha Cao, RADHA [address] [place] [address] [email or web address] Social History Tobacco Use Types [...] 6:00 PM EDT Romelia Caal RN * [place] Suicide Severity Rating Scale (Screener/Recent Self-Report) Question [...] [facility] Rheumatology [address], 4th Floor, [address] [place] [address] Bobby Maloney MD [address] [place] [address] [address] [place] [address] [email or web address] 05/25/2025 10:30 AM EST Office Visit [facility] General Neurology [address] [place] [address], [address] [place] [address] Natan Braden MD [address] [place] [address] 720 [place] [address] [email or web address] documented as of this encounter Visit Diagnoses Not on filedocumented in this encounter Care Teams Rack Production Worker Relationship Specialty Start Date End Date Pcp, Unknown PCP - General 09/07/23 09/22/23 Amelie Carr MD [address] [place] [address] PCP - General Internal Medicine 09/23/23 documented as of this encounter Additional Source Comments The information contained in this document represents components of the legal health record. It is not the complete legal health record.[facility]
--- OUTSIDE RECORDS SUMMARY | 2025-02-18 10:38 | XMS_ITS | Clinical Summary ---
Author Organization [facility] Address [address] [place] [address] Care Team Providers Care Microstrategy Architect Name Role Phone Amelie Carr Primary Care Provider [phone] Allergies Active Allergy Reactions Criticality Noted Date [...] Description 08/04/2025 11:00 AM EDT Research Encounter [facility] Eye [address] [address] Sandy Cueto MD [address] [place] [address] Health Maintenance Due Date Last Done Comments [...] Documents on File Type Date Recorded Patient Supervisor Of Instruction Expl anation Health Care Proxy 08/19/2023 8:51 AM 2023 * Full Code (Latest Code Status on File) Date Activated Date Inactivated Comments 08/15/2023 12:07 PM 08/17/2023 7:17 PM Healthcare Agents on File Name Relationship Healthcare Agent [facility] Communication Ana Jean Baptiste Sister Health Care Agent Care Teams Microstrategy Architect Relationship Specialty Start Date End Date Amelie Carr [address] [place] [address] PCP - General Internal Medicine 08/13/23
--- OUTSIDE RECORDS SUMMARY | 2025-02-18 10:38 | XMS_ITS | Clinical Summary ---
Author Organization [facility] Address [address] [place] [address] [place] [address] Phone Care Team Providers Care Potato Peeler Name Role Phone Amelie Carr MD Primary Care Provider [phone] Allergies Active Allergy Reactions Criticality Noted Date [...] nausea. Patient had broad work up at [facility] with MRI brain/orbit with no active lesions [...] Type Department Care Team Description 12/16/2024 Telephone [facility] [address], 4[address] Floor, [address] [place] [address] Kristina Herr RN 12/11/2024 9:28 AM EDT - 12/11/2024 11:59 PM EDT Hospital Encounter [address] [id number] Bobby Maloney MD Discharge Disposition: Home or Self Care 12/11/2024 9:28 AM EDT - 12/11/2024 11:59 PM EDT Hospital Encounter [address] [address] Bobby Maloney MD Discharge Disposition: Home or Self Care 12/11/2024 9:28 AM EDT - 12/11/2024 11:59 PM EDT Hospital Encounter [address] [address] Bobby Maloney MD Discharge Disposition: Home or Self Care 12/11/2024 Ancillary Orders [facility] [address], 4[address], [address] [place] [address] Bobby Maloney MD Giant cell arteritis (Primary Dx); Pain in joints 12/11/2024 Ancillary Orders [facility] [address], 4[address], [address] [place] [address] Bobby Maloney MD Giant cell arteritis (Primary Dx); Pain in joints 12/09/2024 3:00 PM EDT Office Visit [facility] [address], [address], [address] [place] [address] Bobby Maloney MD Giant cell arteritis (Primary Dx); Pain in joints from Last 3 Months Social History Tobacco [...] Description 04/21/2025 10:00 AM EST Office Visit [facility] [place] [address] [facility], 4th Floor, [address] [place] [address] Bobby Maloney MD [address] [facility] [address] [place] [address] [email or web address] 05/25/2025 10:30 AM EST Office Visit [facility] [address] [facility], [address] [place] [address] Natan Braden MD 55 [facility] [address] [place] [address] [email or web address] Health Maintenance Due Date Last Done [...] Additional history exists POTASSIUM LEVEL 05/20/2025 05/20/2024, 0812/2023, 09/11/2023, Additional history exists BLOOD PRESSURE 06/11/2025 [...] EDT Giant cell arteritis COMPREHENSIVE METABOLIC PANEL (CMP) Routine 05/20/2024 3:36 PM EST Giant cell [...] EST) SODIUM 141 135 - 145 mmol/L [facility] POTASSIUM 4.1 3.4 - 5.0 mmol/L [facility] CHLORIDE 104 98 - 108 mmol/L [facility] CO2 26 23 - 32 mmol/L [facility] BUN 17 8 - 25 mg/dL [facility] CREATININE 0.90 0.50 - 1.00 mg/dL [facility] GLUCOSE 93 70 - 110 mg/dL [facility] ALBUMIN 4.2 3.3 - 5.0 g/dL [facility] TOTAL PROTEIN 6.6 6.0 - 8.3 g/dL [facility] CALCIUM 8.8 8.5 - 10.5 mg/dL [facility] ALKALINE PHOSPHATASE 130(H) 30 - 100 U/L [facility] TOTAL BILIRUBIN 0.3 0.0 - 1.0 mg/dL [facility] AST 25 9 - 32 U/L [facility] ALT 22 7 - 33 U/L [facility] GLOBULIN 2.4 1.9 - 4.1 g/dL [facility] EGFR 73 >59 mL/min/1. 73m2 [facility] Comment:Estimated glomerular filtration rate calculated using the CKD-EPI refit equation. ANION GAP 11 3 - 17 mmol/L [facility] 05/20/2024 3:36 PM EST 05/20/2024 4:39 PM EST Bobby Swain MD LAB BLOOD BKR ORDERABLES Nai l Result [facility] [address] [place] [address] * Hepatitis C antibody, qualitative (09/07/2023 7:15 PM EDT) HCV ANTIBODY Negative Negative [facility] Comment:Antibodies to HCV no t detected. Does not exclude the possibility of exposure to HCV. Blood 09/07/2023 7:15 PM EDT 09/07/2023 7:32 PM EDT us Edil Howell MD LAB BLOOD BKR ORDERABLES Final R esult [facility] [address] [place] [address] from Last 3 Months or Most Recently Relevant to Health Maintenance [place] [place] [address] [facility] [facility] [place] [address] [place] [address] [place] [address] [place] [address] [place] [address] [place] [address] ACO Advance Directives For more information, please contact: [phone] (9AM - 5PM [facility], Saturday-Saturday) * Full Code (Latest Code Status on File) Date Activated Date Inactivated Comments 09/08/2023 12:13 PM Question Answer Comments Code Status Confirmed With: Other (specify below ) Code Discussion Comments: presumed Care Teams Potato Peeler Relationship Specialty Start Date End Date Amelie Carr MD [address] [place] [address] PCP - General Internal Medicine 09/23/23 Additional Source Comments The information contained in this document represents components of the legal health record. It is not the complete legal health record.[facility]
--- OUTSIDE RECORDS SUMMARY | 2025-02-18 10:38 | XMS_ITS | Data Portability ---
Author Organization [place] [facility],, JESSIKA MCCLOUD MD Address [address] [address] Care Team Providers Care Teasel Gig Operator Name Role Phone SÁNCHEZ BELL Primary Care Provider [phone] Assessment No assessment recorded. Plan of Treatment Reminders Order Date Submit Date Provider Last Modified By Organization Details Last Modified Time Details Appointments None recorded. Lab pap test, thinprep, cervical 2022 023 harrison [facility] (Centralized Electronic Ordering - All Locations), Patient Can Go To The Location Of Their Choice, [id number] 3 07:46:03 fecal occult blood, stool 2022 023 [email or web address] 1 In-Office Order, Internal Use Only DO Not Attach Compendium DO Not Attach Compendium, Do Not Delete/merge, [id number] 3 09:52:32 brca (1+2) mutation analysis, blood or tissue 2021 022 [email or web address] [facility], [address], [place], [address], 2 08:58:15 pap test, thinprep, cervical 2021 022 harrison [facility], Cytopathology Service, [address] [facility], [place], [address], 2 08:05:47 fecal occult blood, stool 2021 022 [email or web address] 1 In-Office Order, Internal Use Only DO Not Attach Compendium DO Not Attach Compendium, Do Not Delete/merge, [id number] 2 13:20:41 Referral None recorded. Procedures None recorded. Surgeries None recorded. Imaging MAMMO, screening , digital, bilateral - Breast Aspiratio n and/or Biopsy if needed 2022 023 [facility] (Imaging), [address] [place], [address], 5 10:30:21 MAMMO, screening , digital, bilateral 2021 022 [facility] ([facility]), [address] [place], [address], 4 07:28:47 Medication Orders nystatin 100,000 unit/gram topical powder 2022 023 [id number], [address] [facility] , [place], [address], 3 09:53:24 Patient TargetsNo targets recorded. Patient Instructions Encounter Date Encounter Id Patient Instructions Last Modified By Organization Details Last Modified Time 09/28/2021 [id number] learning about healthy weight [email or web address] Not available [...] the breast. Not available 09/28/2021 13:21:26 11/02/2021 [id number] She is here for BRCA testing, she [...] 375 dollars, and that the testing company ([employer]) will contact her if the co pay [...] minutes niru Not available 11/02/2021 10:50:36 10/01/2022 [id number] learning about healthy weight niru Not available [...] Detail LastModifiedTime 09/29/19 22 09/28/2021 PAP1C ASE [email or web address] ThinP rep Pap, Image d: NEGAT RAJ [...] ts. [Z12. 4, Z01.4 19] Not Available [facility], Cytopathology Service [address] [facility], [place], [address], 10/05/2021 07:31:06 09/29/19 22 09/28/2021 fecal occul t blood , stool Occult Blood negati ve Not Available In-Office Order Internal Use Only DO Not Attach Compendium DO Not Attach Compendium, Do Not Delete/merge, [id number] 09/28/2021 08:09:06 10/02/19 23 10/01/2022 [facility] CYTOL OGY results Padmaja marks Name: MARION WEISS : 1965 (Age: 57) Lab Acces windy #: [id number] Colle ction Date: 2022 Acces windy Date: 2022 Sign Out Date: 023 Tissu e Sourc e: 1: THINP REP COIN COUNTER AND WRAPPER PAP TEST, CERVI LONNIE: Final Diagn osis: [...] 19 , lps 09-28 neg Phone #: [phone], On-Ca ll Patho logis t: [id number] Not Available [facility] (Centralized Electronic Ordering - All Locations) Patient Can Go To The Location Of Their Choice, [id number] 10/18/2022 09:17:01 10/02/19 23 10/01/2022 fecal occul t blood , stool Occult Blood negati ve Not Available In-Office Order Internal Use Only DO Not Attach Compendium DO Not Attach Compendium, Do Not Delete/merge, [id number] 10/01/2022 08:09:15 Result Notes None recorded. Problems Name Problem SNOMED Code Status Onset Date Resolution Date Notes Provider Name and Address Organization Details Recorded Time Family history of breast cancer 208780214 Active 2021 Jessika Mccloud MD [address], [place], [address], [place] [facility], 2 10:50:04 Candidiasis of skin 12590816 Active 2022 Jessika Mccloud MD [address], [place], [address] [place] [facility], 3 09:52:43 Problem Notes None recorded. Procedures Surgical History Date Name Laterality Status Provider Name and Address Organization Details Recorded Time 12/27/19 22 Most Recent Mammogram completed Kelly Glasgow [place] - [facility], 10/01/2022 08:08:06 10/09/19 13 cholecystectomy completed Kelly Glasgow [place] - [facility], 09/28/2021 08:26:25 09/18/19 07 Hernia repair w/mesh completed Kelly Suewruddy [place] - [facility], 09/28/2021 08:26:00 09/15/18 96 Breast reduction completed Kelly Glasgow [place] - [facility], 09/28/2021 08:25:48 09/15/18 69 procedure on kidney completed Kelly Rogerswruddy [place] - [facility], 09/28/2021 08:25:34 Imaging Results None recorded. Procedure Notes None recorded. Medical Equipment None Reported. Allergies Allergen ID Allergen Name Allergen Category Reaction Reaction Severity Criticality Documentation Date Start Date Code Code System Note Provider Name and Address Organization Details Recorded Time 58110 Dilantin medicatio n hives Not available Not available 09/28/2021 66267 0 RxNorm Kellymaribel barboza [place] - [facility], 2 08:13:51 52199 amoxicill in medicatio n hives Not available Not available 09/28/2021 723 RxNorm Kelly Seuwruddy barboza [place] - [facility] in [facility], 2 08:14:04 Medications Name Sig Start [...] Updated DateTime 2 170.18 cm 35 kg/m2 042033. 82 g 98.1 [degF] 67 /min 131/76 mm[Hg] Kelly Castillo in [facility], 2 08:12:08 Date Recorded Body height Body mass index (BMI) Body weight Body temperature Heart rate Systolic And Diastolic Provider Name and Address Organization Details Last Updated DateTime 3 165.1 cm 37.8 kg/m2 559704. 19 g 97.2 [degF] 91 /min 132/72 mm[Hg] Kelly Castillo in [facility], 3 08:04:31 Date Recorded Body height Body mass index (BMI) Body weight Heart rate Body temperature Systolic And Diastolic Provider Name and Address Organization Details Last Updated DateTime 2 170.18 cm 34.9 kg/m2 788460. 1 g 97.2 /min 69 [degF] 128/73 mm[Hg] Cristina Castillo in [facility], 2 08:35:35 Social History Question Answer Notes LastModified by Organizat ion Details LastModified Time Tobacco Smoking Status Never Smoker [place] Gregory in [facility], 09/28/2021 08:24:27 How Many Years Have [...] Or The Highest Degree You Have Received? [id number] Information not available 09/28/2021 Who Is Your [...] anxious, or unable to sleep at night)? [id number] Information not available 09/28/2021 Family History Relationship [...] quadrivalent, preservative 1 completed [place]A Gregory in [facility], 09/28/2021 08:16:54 Influenza, split virus, quadrivalent, preservative 6 completed [place] Gregory in [facility], 10/01/2022 08:05:25 Influenza, split virus, quadrivalent, [...] Kelly Meczywor null, [place] [facility], 10/01/2022 08:05:25 influenza, unspecified formulation 0 completed Kelly Meczywor null, [place] [facility], 10/01/2022 08:05:25 Tdap 1 completed Kelly Meczywor null, [place] [facility], 10/01/2022 08:05:25 RIG 1 completed Kelly Meczywor null, [place] [facility], 10/01/2022 08:05:25 Influenza, split virus, trivalent, preservative 4 completed Kelly Meczywor null, [place] [facility], 10/01/2022 08:05:25 Influenza, split virus, trivalent, preservative 2 completed Kelly Meczywor null, [place] [facility], 10/01/2022 08:05:25 Influenza, split virus, trivalent, preservative 5 completed Kelly Meczywor null, [place] [facility], 10/01/2022 08:05:25 Influenza, split virus, quadrivalent, PF 0 completed Kelly Meczywor null, [place] [facility], 10/01/2022 08:05:25 Influenza, split virus, quadrivalent, PF 1 completed Kelly Meczywor null, [place] [facility], 10/01/2022 08:05:25 Influenza, split virus, quadrivalent, PF 9 completed Kelly Meczywor null, [place] [facility], 10/01/2022 08:05:25 Past Encounters Encounter ID Performer Location Encounter Start Date Encounter Closed Date Diagnosis/Indication Diagnosis SNOMED-CT Code Diagnosis ICD10 Code Diagnosis IMO Codes Diagnosis Note [id number] MD JESSIKA Villeda MD [address] [place] [address] 09/28/2021 08:05:43 09/28/2021 14:45:35 Specialized medical examination 02921774 Z01.419 Screening for malignant neoplasm of rectum 892480195 Z12.12 Screening mammography 24 541928 Z12.31 [id number] MD JESSIKA Villeda MD [address] [place] [address] 11/02/2021 08:33:46 11/02/2021 12:05:45 Family history of breast cancer 423659751 Z80.3 [id number] MD JESSIKA Villeda MD [address] [place] [address] 10/01/2022 07:58:47 10/01/2022 10:02:02 Specialized medical examination 58856014 Z01.419 Screening for malignant neoplasm of rectum 911022862 Z12.12 Screening mammography 24 118514 Z12.31 Candidiasis of skin 4988 3006 B37.2 [...] [facility] (POS) Frances Jean Baptiste [id number] Frances Jean Baptiste Notes Date Note Type Note Provider Name and Address Organization Details Recorded Time 09/28/2021 text/html She is here as a new patient for annual exam. Menopause age 43, nulligravid, single, never smoker, presently not sexually active. Has moderate night sweats some nights but not others. Jessika Mccloud MD [address], [place], [address], [place] [facility], 09/28/2021 13:22:03 11/02/2021 text/html She is here for BRCA testing, she has a strong family history of breast cancer in her paternal aunt and also 2 paternal first cousins. Jessika Mccloud MD [address], [place], [address], [place] - [facility], 11/02/2021 10:50:52 10/01/2022 text/html She is here for annual, doing well.BRCA testing last year was negative. Note from 2021: She is here as a new patient for annual exam. Menopause age 43, nulligravid, single, never smoker, presently not sexually active. Has moderate night sweats some nights but not others.Discussed dietary issues for night sweats. Jessika Mccloud MD [address] [facility],[address], [place], [address], [place] [facility], 10/01/2022 09:54:40 OBGyn Episode No OBEpisode recorded.
--- OUTSIDE RECORDS SUMMARY | 2025-02-18 10:38 | XMS_ITS | Encounter Summary ---
Author Organization [facility] Address [address] [place] [address] Phone Care Team Providers Care Childcare Teacher Name Role Phone Amelie Carr MD Primary Care Provider [phone] Encounter Details Date Type Department Care Team (Latest Contact Info) Description 12/11/2024 Ancillary Orders [facility] Rheumatology [address], 4th Floor, [address] [place] [address] Bobby Maloney MD [address] [place] [email or web address] Giant cell arteritis (Primary Dx); Pain in [...] Description 04/21/2025 10:00 AM EST Office Visit [facility] Rheumatology [address], 4th Floor, [address] [place] [address] Bobby Maloney MD [address] [place] [address] [address] [place] [address] [email or web address] 05/25/2025 10:30 AM EST Office Visit [facility] [address] [facility], [address] [place] [address] Natan Braden MD [address] [place] [id number] [email or web address] documented as of this encounter Results * [...] sites documented in this encounter Care Teams Childcare Teacher Relationship Specialty Start Date End Date Amelie Carr MD [address] [place] [address] PCP - General Internal Medicine 09/23/23 documented as of this encounter Additional Source Comments The information contained in this document represents components of the legal health record. It is not the complete legal health record.[facility]
--- OUTSIDE RECORDS SUMMARY | 2025-02-18 10:38 | XMS_ITS | Encounter Summary ---
Author Organization [facility] Address [address] [place] [address] [place] [address] Phone Care Team Providers Care Health Sciences Dean Name Role Phone Pcp, Unknown Primary Care Provider Amelie Mijares MD Primary Care Provider [phone] Encounter Details Date Type Department Care Team (Late st Contact Info) Description 09/07/2023 Procedure Pass [facility] Emergency Imaging, [address], [address] [place] [address] Social History Tobacco Use Types Packs/Day Years [...] 6:00 PM EDT Romelia Caal RN * [place] Suicide Severity Rating Scale (Screener/Recent Self-Report) Question [...] Description 04/21/2025 10:00 AM EST Office Visit [facility] Rheumatology [address], 4[address], [address] [place] [address] Bobby Maloney MD [address] [place] [address] [address] [place] [address] [email or web address] 05/25/2025 10:30 AM EST Office Visit [facility] General Neurology [address] [place] [address], [address] [place] [address] Natan Braden MD [address] [place] [id number] [email or web address] documented as of this encounter Visit Diagnoses Not on filedocumented in this encounter Care Teams Health Sciences Dean Relationship Specialty Start Date End Date Pcp, Unknown PCP - General 09/07/23 09/22/23 Amelie Carr MD [address] [place] [address] PCP - General Internal Medicine 09/23/23 documented as of this encounter Additional Source Comments The information contained in this document represents components of the legal health record. It is not the complete legal health record.[facility]
== END 2025-02-18 09:51 | disposition home or self-care (01) ==
PROVIDERS: PCP Internal Medicine; Visit Provider Physician Assistant
DX: T63.481A Toxic effect of venom of other arthropod, accidental (unintentional), initial encounter (principal)

== ENCOUNTER → 2025-02-18 09:29 | Outpatient (BNVA) | payer OTHER, SELFPAY | PROVIDERS: PCP Internal Medicine; Visit Provider Physician Assistant | DX: I10 Essential (primary) hypertension (principal); T14.8XXA Other injury of unspecified body region, initial encounter; W57.XXXA Bitten or stung by nonvenomous insect and other nonvenomous arthropods, initial encounter; Y93.9 Activity, unspecified; Y92.9 Unspecified place or not applicable; Y99.9 Unspecified external cause status | CPT/HCPCS: 99212 ==